=== PATIENT | female | born 1945 | race Caucasian/White ===

== ENCOUNTER → 2016-11-22 | Outpatient (CLI) | payer MEDICARE ==
--- NOTE | 2016-11-22 08:34 | US ---
EXAMINATION TYPE: US abdomen complete DATE OF EXAM: 11/22/2016 8:14 AM COMPARISON: 06/19/2011 CLINICAL HISTORY: R10.9 Abd Pain. EXAM MEASUREMENTS: Liver Length: 13.24 cm Gallbladder Wall: .28 cm CBD: 0.51 cm Spleen: 10 cm Right Kidney: 12 cm Left Kidney: 13.9 cm TECHNOLOGIST IMPRESSION: wnl Pancreas: tail obscured by bowel gas Liver: Increased attenuation Gallbladder: wnl Evidence for sonographic Dennis's sign: no CBD: wnl Spleen: wnl Right Kidney: heterogeneous, two tubular anechoic midline areas 1.) 1.9 x 2.2 x 1.6, 2.) 2.4 x 1.4 x 1.5cm Left Kidney: Midline tubular cystic structure measuring 1.)3.0 x 3.4 x 4.4 cm, lateral cyst measurin g 5.5 x 6.5 x 5.0 cm Upper IVC: wnl Abd Aorta: portions visualized wnl, partially obscured by bowel gas The liver is heterogenous. The intrahepatic portion of the IVC and proximal abdominal aorta are with in normal limits. There is no evidence of cholelithiasis. Common bile duct is unremarkable. The vi sualized portions of the pancreas are homogenous. The spleen is unremarkable. Kidneys are symmetric and free of hydronephrosis. Bilateral renal cysts are noted. IMPRESSION: 1. Fatty liver 2. Bilateral renal cysts
== END | disposition home or self-care (01) ==
LOC: RADUSWWP 07:24
PROVIDERS: ATTEND Family Medicine
DX: N28.1 Cyst of kidney, acquired (principal); K76.0 Fatty (change of) liver, not elsewhere classified
CPT/HCPCS: 76700

== ENCOUNTER → 2017-05-12 | Outpatient (CLI) | payer MEDICARE ==
[2017-05-12 09:01] LABS: Blood Urea Nitrogen 16 mg/dL (7-17); Non-African American GFR(MDRD) >60 (>60 ml/min/1.73 sqM)
== END | disposition home or self-care (01) ==
LOC: LABWHC1 08:01
DX: D32.0 Benign neoplasm of cerebral meninges (principal)
CPT/HCPCS: 36415; 82565; 84520

== ENCOUNTER → 2017-06-07 | Outpatient (CLI) | payer MEDICARE ==
--- NOTE | 2017-06-07 10:19 | MR ---
EXAMINATION TYPE: MR brain wo/w con DATE OF EXAM: 06/07/2017 10:06 AM COMPARISON: Previous study dated 05/27/2016. HISTORY: F/U on existing brain meningioma TECHNIQUE: Multiplanar, multiecho imaging of the brain was obtained with and without intravenous adm inistration of 17 mL intravenous MultiHance. FINDINGS: Structures are unremarkable. There is a normal craniocervical junction. There is minimal restricted diffusion within the patient's known meningioma. No other restricted diff usion is identified. There are normal vascular flow voids. The orbits are normal. There is no evidence of a CP angle mass lesion. The patient's known meningioma in the right cerebral convexity previously measured 3.1 x 2.6 x 2.2 cm . Today this measures 2.9 x 2.7 x 2.1 cm. These measurements are within the errors of measurement. There is both punctate and confluent periventricular white matter disease. This may have worsened sli ghtly from the previous study. There is no midline shift or intracranial blood. IMPRESSION: 1. NO ACUTE INTRACRANIAL ABNORMALITY. 2. STABLE RIGHT POSTERIOR PARIETAL CONVEXITY MENINGIOMA. 3. SLIGHT INCREASE IN THE NUMBER OF CONFLUENT AND PUNCTATE PERIVENTRICULAR WHITE MATTER CHANGES, LIKE LY ON THE BASIS OF SMALL VESSEL DISEASE.
== END | disposition home or self-care (01) ==
LOC: RADMRIMAIN 09:30
DX: D32.0 Benign neoplasm of cerebral meninges (principal); R90.82 White matter disease, unspecified
CPT/HCPCS: 70553; A9577

== ENCOUNTER → 2018-01-06 | Outpatient (CLI) | payer SELFPAY ==
--- NOTE | 2018-01-06 11:09 | MM ---
Reason for exam: additional evaluation requested from prior study. Last mammogram was performed 1 year and 7 months ago. History: Patient is postmenopausal and has history of other cancer at age 66. Family history of breast cancer in sister at age 63. Benign stereotactic core biopsy of the right breast, August 18, 2003. Core biopsy of the right breast. 3 excisional biopsies of the left breast. Physical Findings: Nurse did not find any significant physical abnormalities on exam. MG 3D Diag Mammo W/Cad HUMPHREY Bilateral CC and MLO view(s) were taken. Prior study comparison: May 31, 2016, bilateral MG screening mammo w CAD. May 22, 2015, bilateral MG diagnostic mammo w CAD HUMPHREY. There are scattered fibroglandular densities. Previous mammotome biopsy in the right breast. 7mm circumscribed mass upper outer quadrant right breast increased in size from 2015 and new from 2014. Small group of microcalcifications 10 o'clock left breast unchanged. These results were verbally communicated with the patient and result sheet given to the patient on 01/06/18. ASSESSMENT: Incomplete: need additional imaging evaluation, BI-RAD 0 RECOMMENDATION: Ultrasound of the right breast. (upper outer quadrant)
--- NOTE | 2018-01-06 11:10 | USB ---
Reason for exam: additional evaluation requested from abnormal screening. History: Patient is postmenopausal and has history of other cancer at age 66. Family history of breast cancer in sister at age 63. Benign stereotactic core biopsy of the right breast, August 18, 2003. Core biopsy of the right breast. 3 excisional biopsies of the left breast. US Breast Limited RT Right breast ultrasound demonstrates a 0.5 x 0.5 x 0.3cm oval, cystic, benign lesion at 10 o'clock, corresponds well to the mammographic finding. Scanned 9-12 o'clock. These results were verbally communicated with the patient and result sheet given to the patient on 01/06/18. ASSESSMENT: Benign, BI-RAD 2 RECOMMENDATION: Follow-up diagnostic mammogram of both breasts in 1 year.
== END | disposition home or self-care (01) ==
LOC: RADMAMWWP 09:12
PROVIDERS: ATTEND Family Medicine
DX: R92.8 Other abnormal and inconclusive findings on diagnostic imaging of breast (principal)
CPT/HCPCS: 77066; 76642; G0279

== ENCOUNTER → 2018-07-13 | Outpatient (CLI) | payer BC, MEDICARE ==
--- NOTE | 2018-07-13 13:06 | MR ---
EXAMINATION TYPE: MR brain wo/w con DATE OF EXAM: 07/13/2018 COMPARISON: Prior brain MR 06/07/2017 HISTORY: Benign neoplasm of cerebral meninges TECHNIQUE: Multiplanar, multisequence images of the brain and brainstem is performed without and with IV contras t, utilizing 8.5 mL intravenous Gadavist . FINDINGS: Diffusion weighted images demonstrate no evidence of a recent infarct or other diffusion ab normality. The extra-axial mass described on previous report is again noted and measures approximatel y 3.2 cm x 3.1 cm x 2.3 cm and shows intense enhancement following contrast menstruation at the level of the right parietal convexity and is similar to prior exam. Scattered and confluent hyperintensiti es on inversion recovery and T2-weighted sequences are present throughout the white matter as on prio r exam. No hemorrhage or hydrocephalus. Midline structures demonstrate normal morphology. The craniocervical junction appears within normal limits. Post contrast images demonstrate the right parietal mass to enhance as on prior the dural ve nous sinuses appear patent. The visualized sinuses are clear and the globes are intact. IMPRESSION: Stable meningioma, white matter demyelination.
== END | disposition home or self-care (01) ==
LOC: RADMRIMAIN 11:44
DX: D32.0 Benign neoplasm of cerebral meninges (principal); G37.8 Other specified demyelinating diseases of central nervous system
CPT/HCPCS: 70553

== ENCOUNTER → 2019-08-04 | Outpatient (CLI) | payer BC, MEDICARE ==
--- NOTE | 2019-08-04 10:11 | MM ---
Reason for exam: additional evaluation requested from prior study. Last mammogram was performed 1 year and 7 months ago. History: Patient is postmenopausal and has history of other cancer at age 66. Family history of breast cancer in sister at age 63. Benign stereotactic core biopsy of the right breast, August 18, 2003. Core biopsy of the right breast. 3 excisional biopsies of the left breast. Took estrogen for 6 months beginning at age 51. Took progesterone for 6 months beginning at age 51. Physical Findings: Nurse Summary: 0.5cm nodule in the left breast at 12 o'clock (nurse dw). MG 3D Diag Mammo W/Cad HUMPHREY Bilateral CC and MLO view(s) were taken. Prior study comparison: January 06, 2018, bilateral MG 3d diag mammo w/cad HUMPHREY. May 31, 2016, bilateral MG screening mammo w CAD. The breast tissue is heterogeneously dense. This may lower the sensitivity of mammography. Stable benign calcifications. There is chronic nodularity bilaterally. Ultrasound of left palpable. These results were verbally communicated with the patient and result sheet given to the patient on 08/04/19. ASSESSMENT: Incomplete: need additional imaging evaluation, BI-RAD 0 RECOMMENDATION: Ultrasound of the left breast.
--- NOTE | 2019-08-04 10:14 | USB ---
Reason for exam: additional evaluation requested from abnormal screening. History: Patient is postmenopausal and has history of other cancer at age 66. Family history of breast cancer in sister at age 63. Benign stereotactic core biopsy of the right breast, August 18, 2003. Core biopsy of the right breast. 3 excisional biopsies of the left breast. Took estrogen for 6 months beginning at age 51. Took progesterone for 6 months beginning at age 51. US Breast Limited LT Left limited breast ultrasound including focal area of concern, retroareolar and axilla demonstrates a 3 x 2 x 3mm cystic cluster at 1 o'clock, a 2 x 2 x 2mm oval, cystic lesion at 2 o'clock, a 4 x 2 x 3mm solid, hypoechoic lesion at 2 o'clock, taller than wide, biopsy recommended and a 4 x 3 x 5mm lobular, cystic lesion at the posterior nipple BB. These results were verbally communicated with the patient and result sheet given to the patient on 08/04/19. ASSESSMENT: Suspicious, BI-RAD 4 RECOMMENDATION: Ultrasound core biopsy of the left breast. (2 o'clock) Called Dr. Sharma with mammographic findings and has scheduled an appointment for the patient for 08/18/19 at 1:[address] Abdalla. Biopsy scheduled for 08/23/19 at 2:20. PRELIMINARY REPORT CALLED AND FAXED TO DR. ABDALLA ON 08/04/19.
== END | disposition home or self-care (01) ==
LOC: RADMAMWWP 08:12
PROVIDERS: ATTEND Family Medicine
DX: N60.11 Diffuse cystic mastopathy of right breast (principal); N60.12 Diffuse cystic mastopathy of left breast; N63.20 Unspecified lump in the left breast, unspecified quadrant; R92.8 Other abnormal and inconclusive findings on diagnostic imaging of breast
CPT/HCPCS: 77062; 77066

== ENCOUNTER → 2019-08-04 | Outpatient (CLI) | payer BC, MEDICARE ==
--- NOTE | 2019-08-04 11:46 | MR ---
EXAMINATION TYPE: MR brain wo/w con DATE OF EXAM: 08/04/2019 COMPARISON: 07/13/2018 HISTORY: Benign neoplasm of cerebral meninges TECHNIQUE: Multiplanar, multisequence images of the brain and brainstem is performed without and with IV contras t, utilizing 8 mL intravenous Gadavist . FINDINGS: Diffusion weighted images demonstrate no evidence of a recent infarct or other diffusion ab normality. The extra-axial mass described on previous report is again noted and measures approximately 3.2 cm x 3.1 cm x 2.3 cm and shows intense enhancement at the level of the right parietal convexity and is sim ilar to prior exam. There is mass effect upon the adjacent right parietal cortex. No midline shift. There are numerous scattered and confluent hyperintensities on inversion recovery and T2-weighted se quences are present throughout the white matter as on prior exam. No enhancing lesions. Midline structures demonstrate normal morphology. The craniocervical junction appears within normal limits. The dural venous sinuses appear patent. IMPRESSION: 1. Stable right parasagittal meningioma. Stable amount of mass effect upon the underlying right parie chrissy cortex and a mild compression of the right margin of the sagittal sinus. 2. Nonspecific stable white matter findings may been the basis of remote microvascular ischemia or de myelination. Correlate clinically
== END | disposition home or self-care (01) ==
LOC: RADMRIMAIN 10:04
DX: D32.0 Benign neoplasm of cerebral meninges (principal); R90.89 Other abnormal findings on diagnostic imaging of central nervous system
CPT/HCPCS: 70553; A9585

== ENCOUNTER → 2019-08-18 | Outpatient (CLI) | payer BC, MEDICARE ==
[2019-08-18 13:38] VITALS: BP 148/85; PULSE 66; RESP 18; TEMP 98; BMI 29.0
--- NOTE | 2019-08-18 14:07 | P.GSHP ---
History of Present Illness H&P Date: 08/18/19 Chief Complaint: abnormal ultrasound left breast Ani is a 73-year-old white female a diagnostic mammogram performed on . At that time there was chronic nodularity noted in stable benign calcifications. The risks however had palpated in the area of concern in the 12 o'clock position of the left breast. The patient therefore underwent a left breast ultrasound. This revealed a 4 x 3 cm solid hypoechoic lesion at 2:00 tolerated and wide. Biopsy was recommended. The patient herself states she did not feel anything of concern in her breasts. However she has had multiple bilateral breast biopsies. She has had 3 open left breast biopsies and 2 stereotactic right breast biopsies. All have been benign. The patient has breast pain on occasion related to caffeine intake. She drinks only one cup of coffee per day. She does not smoke, is not exposed to seco ndhand smoke. She eats chocolate minimally. Family History: sister: breast cancer at 71 Hormonal History: menarche: 14 , 2 stillborn, breast fed: none, age at first : 31 menopause: 51 BCP: 1 year hormones: none Past Surgical History: 1. thyroid 2. tonsil 3. breast biopsy 4. shoulder arthoscopic surgery 5. knee arthroscopic Medical History: 1. fibromyalgia 2. arthtritis 3. back pain 4. Meningioma which is stable/following this for 5 years, follows every 1 year Social History: smoke: none alcohol: occasional drugs: none - Constitutional Constitutional: Denies chills, Denies fever - EENT Comment: glaucoma, cataract Eyes: denies blurred vision, denies pain Ears: bilateral: tinnitus, deny: decreased hearing Ears, nose, mouth and throat: Reports headache, Reports hoarseness - Breasts Breasts: bilateral: as per HPI - Cardiovascular Cardiovascular: Reports chest pain - Respiratory Comment: seasonal asthma - Gastrointestinal Comment: reflux IBS Gastrointestinal: Reports diarrhea - Genitourinary (Female) Genitourinary: Denies dysuria, Denies hematuria - Menstruation Menstruation: Reports postmenopausal - Musculoskeletal Comment: fibromyalgia hip pain back pain Musculoskeletal: Reports myalgias - Integumentary Comment: psoriasis Integumentary: Denies pruritus, Denies rash - Neurological Comment: meniagoma Neurological: Reports weakness - Psychiatric Psychiatric: Denies anxiety, Denies depression - Endocrine Comment: thyroid cancer Endocrine: Reports fatigue - Hematologic/Lymphatic Comment: none - Allergic/Immunologic Allergic/Immunologic: Reports seasonal allergies Past Medical History Past Medical History: GERD/Reflux, Hyperlipidemia, Hypertension, Thyroid Disorder History of Any Multi-Drug Resistant Organisms: None Reported Past Surgical History: Breast Surgery Additional Past Surgical History / Comment(s): thyroidectomy, breast biopsy Past Psychological History: No Psychological Hx Reported Smoking Status: Never smoker Past Alcohol Use History: Occasional Past Drug Use History: None Reported Medications and Allergies Home Medications Medication Instructions Recorded Confirmed Type Latanoprost Ophth [Xalatan 0.005%] 1 drops BOTH EYES HS 11/22/15 08/18/19 History Levothyroxine Sodium [Synthroid] 125 mcg PO DAILY 11/22/15 08/18/19 History Omeprazole [PriLOSEC] 10 mg PO AC-BRKFST 11/22/15 08/18/19 History amLODIPine [Norvasc] 5 mg PO DAILY 11/22/15 08/18/19 History Rosuvastatin [Crestor] 4 mg PO DAILY 08/05/19 08/18/19 History Cefuroxime Axetil [Ceftin] 500 mg PO BID 08/18/19 08/18/19 History Allergies Allergy/AdvReac Type Severity Reaction Status Date / Time No Known Allergies Allergy Verified 08/18/19 13:24 Surgical - Exam Vital Signs Temp Pulse Resp BP Pulse Ox 98.0 F 66 18 148/85 97 08/18/19 13:27 08/18/19 13:27 08/18/19 13:27 08/18/19 13:27 08/18/19 13:27 BMI 29 - General well developed, well nourished, no distress - Eyes normal ocular movement - ENT no hearing loss, no congestion - Neck no masses, trachea midline - Respiratory normal expansion, normal respiratory effort, clear to auscultation - Cardiovascular Rhythm: regular Heart Sounds: normal: S1, S2 - Abdomen Abdomen: soft, non tender, no guarding, no rigid, no rebound - Integumentary normal turgor - Neurologic no disoriented, no combative - Musculoskeletal normal gait, normal posture - Psychiatric oriented to time, oriented to person, oriented to place, speech is normal, memory intact breast exam: Right breast: Multi-positional exam no dominant masses or nodules of concern, fibrocystic changes Right axilla: No adenopathy of concern Left breast: Well-healed scars from prior biopsy, fibrocystic changes, step-off deformity near the area of biopsy Left axilla: No adenopathy of concern Results Mammogram and ultrasound results reviewed Assessment and Plan Assessment: Impression: 1. Mammogram abnormality line 2. Ultrasound abnormality 4 x 2 mm solid tolerated and wide lesion at 2:00 3. Palpable lesion at 12:00 noted by a nurse not noted by patient or myself 4. Stable meningioma 5. Fibromyalgia 6. Past history of thyroid cancer 7. Family history of breast cancer/sister 8. Fibrocystic breast changes 9. Breast pain related to caffeine intake Plan: 1. Ultrasound-guided core biopsy of left breast lesion 2. Abstain from caffeinated beverages/patient does not smoke, and eats chocolate only occasionally 3. Medical management of medical conditions CC: Dr. Sharma Risk and benefits of ultrasound core biopsy discussed with the patient and her . They understand and wish to proceed.
== END | disposition home or self-care (01) ==
LOC: WWCWWP 13:09
PROVIDERS: ATTEND Surgery
DX: Z53.9 Procedure and treatment not carried out, unspecified reason (principal)

== ENCOUNTER → 2019-08-23 | Day surgery (SDC) | payer BC, MEDICARE ==
[2019-08-23 13:46] VITALS: RESP 16; BMI 29.8
[2019-08-23 15:36] VITALS: BP 147/80; PULSE 80; TEMP 98.1
--- NOTE | 2019-08-23 17:29 | USB ---
EXAMINATION TYPE: US biopsy breast VAD LT, Post procedure diagnostic mammo LT wo CAD DATE OF EXAM: 08/23/2019 CLINICAL HISTORY: 73-year-old female R92.8 Abnormal Mammogram. TECHNIQUE: Ultrasound guided core biopsy of the left breast. COMPARISON: 08/04/2019 FINDINGS: The procedure of ultrasound guided core biopsy was explained to the patient. Benefits, alternatives, and risks were discussed. An informed consent was then obtained. The patient was placed in supine positioning for imaging and for the procedure. The overlying skin was prepped and draped in usual sterile fashion. Lidocaine buffered with bicarbonate was used as anesthetic into the skin and subcutaneous tissue up to area of concern in the 2:00 left breast. Under ultrasound guidance, a 13-gauge vacuum-assisted mammotome Elite biopsy gun device was used to obtain 3 core samples. Following this, a coil clip was left in lesion. The patient tolerated the procedure well without any immediate complication. The patient was kept in the radiology department for short stay after the procedure and then discharged home in stable condition. Postprocedure mammogram shows coil clip at the 2:00 position at a middle depth. IMPRESSION: Successful, uncomplicated ultrasound guided core biopsy of the tiny, 3 mm, vertically oriented area of concern in the 2:00 left breast, full pathology results to follow. Pathology Results: High Risk LEFT BREAST, ULTRASOUND GUIDED CORE BIOPSY: Intraductal papilloma. Recommendation Surgical consult of the left breast. (needle localization) RAYSHAWND
== END | disposition home or self-care (01) ==
LOC: RADUSWWP 13:16
PROVIDERS: ATTEND Surgery
DX: D24.2 Benign neoplasm of left breast (principal)
CPT/HCPCS: 88305; 77065; 19083; A4648; J2001

== ENCOUNTER → 2019-09-03 | Outpatient (CLI) | payer BC, MEDICARE ==
[2019-09-03 08:26] VITALS: BP 162/79; PULSE 71; RESP 18; TEMP 97.9; BMI 29.0
--- NOTE | 2019-09-03 08:56 | P.PN ---
Subjective Progress Note Date: 09/03/19 Principal diagnosis: post-op core biopsy/intraductal papilloma Ani is a 73-year-old white female who was initially seen on [id number]. At that time there was chronic nodularity noted in the breast. The patient had had an ultrasound which revealed a 4 x 3 cm solid hypoechoic lesion at 2:00 tolerated and wide and biopsy was recommended. The patient subsequently underwent a ultrasound-guided core biopsy on [id number]. Pathology revealed an intraductal papilloma. The patient since the procedure does not complain of anything in her breasts. She had some mild bruising. The patient has had multiple breast biopsies in the past including 3 open left breast biopsies and 2 stereotactic right breast biopsies. All have been benign. The patient relates a history of urinary tract infection, she was treated with antibiotics approximately 2 months ago. She has recently been having pelvic pressure and discomfort. We will repeat a UA. The reason is that we do not want to do the excisional biopsy if she has an active infection. The patient also has a history of a meningioma which has been stable but we will review this with neurosurgeon to assure that she would be a stable candidate for general anesthesia and surgical intervention. History: sister: Breast cancer 71 Medical history: 1. Fibromyalgia 2. Arthritis 2. Back pain 4. Meningioma which is been stable 5. Pelvic pain/urinary tract infection and recent past 6. Intraductal papilloma left breast 7. Multiple prior breast biopsies Objective - Vital Signs Vital signs: Vital Signs Temp 97.9 F 09/03/19 08:22 Pulse 71 09/03/19 08:22 Resp 18 09/03/19 08:22 BP 162/79 09/03/19 08:22 Pulse Ox 94 L 09/03/19 08:22 Intake & Output 09/02/19 09/03/19 09/03/19 18:59 06:59 18:59 Weight 83.915 kg - Exam BMI 29 - Constitutional General appearance: Present: average body habitus - EENT Eyes: Present: EOMI ENT: Present: hearing grossly normal - Neck Neck: Present: normal ROM - Respiratory Respiratory: bilateral: CTA - Cardiovascular Rhythm: regular Heart sounds: normal: S1, S2 - Integumentary Integumentary Comment(s): Left breast: Core biopsy site: No evidence of infection No hematoma Mild ecchymosis at biopsy site Well-healed scar from prior open biopsy Integumentary: Present: normal turgor - Musculoskeletal Musculoskeletal: Present: gait normal - Psychiatric Psychiatric: Present: A&O x's 3, appropriate affect, intact judgment & insight Assessment and Plan Assessment: Impression: 1. Ultrasound abnormality 4 x 2 mm solid tolerated then wide at 2:00, core biopsy intraductal papilloma 2. Fibrocystic breast changes 3. Prior recent urinary tract infection with symptoms of pelvic discomfort at this time 4. Fibromyalgia 5. Stable meningioma 6. Family history of breast cancer in sister 7. Breast pain felt to be related to caffeine Plan: 1. Needle localization excisional biopsy of intraductal papilloma/ultrasound abnormality 2. Repeat UA to assure that she does not have active infection 3. Medical clearance from neurosurgeon related to meningioma and any risks at time of induction of anesthesia 4. medical clearance from medical doctor Risks and benefits of the procedure were discussed with the patient and her . These include but are not limited to bleeding, infection, reaction to the anesthetic. This also included the possibility that the lesion could not be removed and we would have to repeat the procedure and started 4-6 months. Additionally we have discussed risks of doing procedure with an active infection and therefore obtained and a UA. We have also discussed the possible risks of induction of anesthesia with a intracranial lesion/meningioma and clearance will be obtained from both her medical doctor and neurosurgeon. The patient at this time is not taking any blood thinners. Cc: Dr. Sharma
[2019-09-03 15:48] LABS: Appearance,Urine Clear (Clear); Bacteria,Urine Rare /hpf; Bilirubin,Urine Negative (Negative); Blood,Urine Negative (Negative); Color,Urine Yellow; Glucose,Urine (UA) Negative (Negative); Hyaline Casts,Urine 1 /lpf (0-2); Ketones,Urine Negative (Negative); Leukocyte Esterase,Urine Moderate (Negative); Mucus,Urine Few /hpf; Nitrite,Urine Negative (Negative); Protein,Urine Trace (Negative); RBC,Urine 1 /hpf (0-5); Specific Gravity,Urine 1.025 (1.001-1.035); Squamous Epithelial Cell,Urine 5 /hpf (0-4); Urobilinogen,Urine <2.0 mg/dL (<2.0); WBC,Urine 6 /hpf (0-5)
--- NOTE | 2019-10-08 16:51 | P.PN ---
Subjective Progress Note Date: 10/08/19 Principal diagnosis: post-op core biopsy/intraductal papilloma post-op core biopsy/intraductal papilloma Ani is a 73-year-old white female who was initially seen on [id number]. At that time there was chronic nodularity noted in the breast. The patient had had an ultrasound which revealed a 4 x 3 cm solid hypoechoic lesion at 2:00 taller than wide and biopsy was recommended. The patient subsequently underwent a ultrasound-guided core biopsy on [id number]. Pathology revealed an intraductal papilloma. The patient since the procedure does not complain of anything in her breasts. She had some mild bruising. The patient has had multiple breast biopsies in the past including 3 open left breast biopsies and 2 stereotactic right breast biopsies. All have been benign. The patient relates a history of urinary tract infection, she was treated with antibiotics approximately 2 months ago. She has recently been having pelvic pressure and discomfort. We will repeat a UA. The reason is that we do not want to do the excisional biopsy if she has an active infection. The patient also has a history of a meningioma which has been stable but we will review this with neurosurgeon to assure that she would be a stable candidate for general anesthesia and surgical intervention. History: sister: Breast cancer 71 Medical history: 1. Fibromyalgia 2. Arthritis 2. Back pain 4. Meningioma which is been stable 5. Pelvic pain/urinary tract infection and recent past 6. Intraductal papilloma left breast 7. Multiple prior breast biopsies Objective - Vital Signs Vital signs: Vital Signs Temp 97.9 F 09/03/19 08:22 Pulse 71 09/03/19 08:22 Resp 18 09/03/19 08:22 BP 162/79 09/03/19 08:22 Pulse Ox 94 L 09/03/19 08:22 - Exam BMI 29 - Constitutional General appearance: Present: average body habitus - EENT Eyes: Present: EOMI ENT: Present: hearing grossly normal - Neck Neck: Present: normal ROM - Respiratory Respiratory: bilateral: CTA - Cardiovascular Rhythm: regular Heart sounds: normal: S1, S2 - Gastrointestinal General gastrointestinal: Present: soft - Integumentary Integumentary: Present: normal turgor - Musculoskeletal Musculoskeletal: Present: gait normal - Psychiatric Psychiatric: Present: A&O x's 3, appropriate affect, intact judgment & insight - Additional findings Additional findings: Breast examination: Right breast: Multiple positional exam no dominant masses or nodules of concern, fibrocystic changes Right axilla: No adenopathy of concern left breast: Well-healed scars from prior biopsy, fibrocystic changes, step-off deformity near area of the prior biopsy, no evidence of infection or hematoma at the biopsy site Left axilla: No adenopathy of concern Assessment and Plan Assessment: Impression: 1. Ultrasound abnormality 4 x 2 mm solid tolerated then wide at 2:00, core biopsy intraductal papilloma 2. Fibrocystic breast changes 3. Prior recent urinary tract infection with symptoms of pelvic discomfort at this time 4. Fibromyalgia 5. Stable meningioma 6. Family history of breast cancer in sister 7. Breast pain felt to be related to caffeine Plan: 1. Needle localization excisional biopsy of intraductal papilloma/ultrasound abnormality; possible tissue transfer 2. Repeat UA to assure that she does not have active infection 3. Medical clearance from neurosurgeon related to meningioma and any risks at time of induction of anesthesia 4. medical clearance from medical doctor Risks and benefits of the procedure were discussed with the patient and her . These include but are not limited to bleeding, infection, reaction to the anesthetic. This also included the possibility that the lesion could not be removed and we would have to repeat the procedure and started 4-6 months. Additionally we have discussed risks of doing procedure with an active infection and therefore obtained and a UA. We have also discussed the possible risks of induction of anesthesia with a intracranial lesion/meningioma and clearance will be obtained from both her medical doctor and neurosurgeon. The patient at this time is not taking any blood thinners. UA performed on revealed trace urine protein, moderate leukocyte esterase positive, and rare bacteria. Patient was cleared from neurosurgical standpoint by Dr. Roland Newton. Patient was cleared from cardiology standpoint for surgery. Cc: Dr. Sharma
== END | disposition home or self-care (01) ==
LOC: WWCWWP 08:03
PROVIDERS: ATTEND Surgery
DX: N39.0 Urinary tract infection, site not specified (principal); Z87.448 Personal history of other diseases of urinary system
CPT/HCPCS: 81001

== ENCOUNTER 2019-10-12 10:47 | Day surgery (SDC) | payer BC, MEDICARE ==
[2019-10-11 09:45] VITALS: BMI 29.0
[~2019-10-12 10:47] MED LIST: ALPRAZolam 0.25 MG TAB PO PRN; DEXAMETHASONE SOD PHOSPHATE 10 MG/ML 1 ML VIAL IV ONE; HEPARIN SODIUM,PORCINE 5,000 UNIT/ML 1 ML VIAL SQ ONE; HYDROmorphone 0.5 MG/0.5 ML SYRINGE IVP PRN; LACTATED RINGERS 1,000 ML IV SCH; LIDOCAINE 1% 20 ML VIAL (10MG/ML) FOR IV START INTRADERMA PRN; ONDANSETRON 4 MG/2 ML VIAL IVP ONE; Pre Op ABX Message 1 EACH MISC MISCELLANE ONE
[2019-10-12 11:09] VITALS: RESP 16
[2019-10-12] MEDS ORDERED: ALPRAZolam 0.25 MG TAB PO ONE (11:20)
[2019-10-12 12:00] LABS: Appearance,Urine Clear (Clear); Bilirubin,Urine Negative (Negative); Blood,Urine Negative (Negative); Color,Urine Yellow; Glucose,Urine (UA) Negative (Negative); Ketones,Urine Negative (Negative); Leukocyte Esterase,Urine Trace (Negative); Mucus,Urine Many /hpf; Nitrite,Urine Negative (Negative); PH, Urine 5.5 (5.0-8.0); Protein,Urine Trace (Negative); RBC,Urine 2 /hpf (0-5); Specific Gravity,Urine 1.019 (1.001-1.035); Squamous Epithelial Cell,Urine 1 /hpf (0-4); Urobilinogen,Urine <2.0 mg/dL (<2.0); WBC,Urine 1 /hpf (0-5)
[2019-10-12] MEDS ORDERED: LIDOCAINE 1% (PF) 10 MG/ML (30 ML SDV) SQ ONE (12:05)
[2019-10-12] MEDS ORDERED: LIDOCAINE 1% INJ 10MG/ML (20 ML MDV) ONE (14:55)
[2019-10-12] MEDS ORDERED: PROPOFOL 10 MG/ML 20 ML VIAL IV ONE (14:55)
[2019-10-12] MEDS ORDERED: MIDAZOLAM 2 MG/2 ML VIAL ONE (14:55)
[2019-10-12] MEDS ORDERED: SUCCINYLCHOLINE CHLORIDE 100 MG/5 ML SYR IV ONE (14:55)
[2019-10-12] MEDS ORDERED: fentaNYL (PF) 50 MCG/ML 2 ML AMP ONE (14:55)
[2019-10-12] MEDS ORDERED: HYDROmorphone (PF) 1 MG/ML ONE (14:55)
[2019-10-12] MEDS ORDERED: ePHEDrine SULFATE/0.9% NACL/PF 50 MG/5 ML SYRINGE IV ONE (14:55)
[2019-10-12] MEDS ORDERED: LACTATED RINGERS 1,000 ML IV ONE (15:38)
--- NOTE | 2019-10-12 16:01 | P.OP ---
Date of Procedure: 10/12/19 Preoperative Diagnosis: Left breast needle localization for biopsy which showed an intraductal papilloma Postoperative Diagnosis: Same Procedure(s) Performed: Needle local excisional biopsy left breast Anesthesia: RONNELL Surgeon: April Abdalla IV fluids (ml): 800 Pathology: other (breat tissue) Condition: stable Disposition: same day Indications for Procedure: Biopsy left breast positive for intraductal papilloma, in addition lesion was tolerated and wide and felt to be somewhat discordant biopsy Operative Findings: Fibrofatty breast tissue Description of Procedure: Following needle localization of an area of concern in the left breast patient was taken to the operating room. Following induction of general anesthesia the left breast was prepped and draped in a sterile fashion. An incision was made and carried down to the hook of the needle. Surrounding tissue was excised. After assured that hemostasis was attained the wound was well irrigated. The deep tissues were closed using 3-0 Vicryl suture. Titanium clips were placed prior to this to danis the area of the biopsy. The skin was closed using 4-0 Monocryl. The specimen was painted for orientation and x-ray was obtained. X- ray confirmed the area of concern had been removed. Patient tolerated procedure in stable condition. All instrument and sponge counts were correct at the end of the case.
--- NOTE | 2019-10-12 16:03 | P.DS ---
Providers Attending physician: April Abdalla Primary care physician: Romel Sharma Plan - Discharge Summary Discharge Rx Participant: No New Discharge Prescriptions: No Action amLODIPine [Norvasc] 5 mg PO DAILY Omeprazole [PriLOSEC] 10 mg PO AC-BRKFST Latanoprost Ophth [Xalatan 0.005%] 1 drops BOTH EYES HS Rosuvastatin [Crestor] 10 mg PO DAILY ALPRAZolam [Xanax] 0.5 mg PO HS PRN PRN Reason: Anxiety Ibuprofen [Advil] 400 mg PO Q8HR PRN PRN Reason: Pain Acetaminophen [Tylenol Extra Strength] 500 mg PO DAILY PRN PRN Reason: Pain Levothyroxine Sodium [Synthroid] 112 mcg PO DAILY Discharge Medication List Latanoprost Ophth [Xalatan 0.005%] 1 drops BOTH EYES HS 11/22/15 [History] Omeprazole [PriLOSEC] 10 mg PO AC-BRKFST 11/22/15 [History] amLODIPine [Norvasc] 5 mg PO DAILY 11/22/15 [History] Rosuvastatin [Crestor] 10 mg PO DAILY 08/05/19 [History] ALPRAZolam [Xanax] 0.5 mg PO HS PRN 09/03/19 [History] Acetaminophen [Tylenol Extra Strength] 500 mg PO DAILY PRN 10/11/19 [History] Ibuprofen [Advil] 400 mg PO Q8HR PRN 10/11/19 [History] Levothyroxine Sodium [Synthroid] 112 mcg PO DAILY 10/11/19 [History] Follow up Appointment(s)/Referral(s): April Abdalla MD [STAFF PHYSICIAN] - 1 Week Activity/Diet/Wound Care/Special Instructions: do not drive today may shower after 48 hours Discharge Disposition: HOME SELF-CARE
[2019-10-12 16:30] VITALS: TEMP 97.2
[2019-10-12] MEDS ORDERED: HYDROmorphone 0.5 MG/0.5 ML SYRINGE IVP ONE (16:31)
[2019-10-12 17:44] VITALS: BP 130/63; PULSE 74
[2019-10-12 19:09] LABS: Appearance,Urine Clear (Clear); Bilirubin,Urine Negative (Negative); Blood,Urine Negative (Negative); Color,Urine Light Yellow; Glucose,Urine (UA) Negative (Negative); Ketones,Urine Trace (Negative); Leukocyte Esterase,Urine Negative (Negative); Nitrite,Urine Negative (Negative); PH, Urine 6.5 (5.0-8.0); Protein,Urine Trace (Negative); Specific Gravity,Urine 1.011 (1.001-1.035); Urobilinogen,Urine <2.0 mg/dL (<2.0)
--- NOTE | 2019-10-14 13:43 | MM ---
EXAMINATION TYPE: MG pre op needle loc LT DATE OF EXAM: 10/12/2019 COMPARISON: 08/23/2019 CLINICAL HISTORY: Abnormal left breast biopsy TECHNIQUE: Needle localization with wire placement and surgical excision of area of concern in the left breast. FINDINGS: The procedure of needle localization with wire placement and than surgical excision was explained to the patient. Benefits, alternatives, and risks were discussed. An informed consent was then obtained. The shortest pathway for procedure was chosen. Shortest pathway was lateral approach. The overlying skin was prepped and draped in usual sterile fashion. Lidocaine buffered with bicarbonate was used as anesthetic into the skin and subcutaneous tissue up to the level of area of concern. A 5 cm needle was used. It was placed via a lateral approach under mammographic guidance. Subsequent 90 degrees mammogram show the needle to be in satisfactory position relative to the targeted area. At this point, wire was placed and the needle was withdrawn. The wire was fixed to patient's skin. Images were marked for surgeon. The patient tolerated the procedure well without any immediate complication. The patient was kept in the radiology department for short stay after the procedure and then taken to surgery for surgical excision. Targeted biopsy clip and wire are identified in specimen mammogram. The patient was kept in hospital for short stay after the procedure and then discharged home in stable condition. IMPRESSION: Successful, uncomplicated needle localization with wire placement and surgical excision of biopsy clip in the left breast, full pathology results to follow. Pathology Results: High Risk LEFT BREAST MASS, NEEDLE LOCALIZATION BIOPSY: Intraductal papillomatosis and usual type duct hyperplasia in a background of fibrocystic spectrum disease changes. Focal stromal hyalinization consistent with reaction to prior surgical intervention. Intraductal mineralizations are present. Recommendation Follow up mammogram of the left breast in 6 months. MTDD
--- NOTE | 2019-10-18 08:19 | MM ---
MG Surgical Specimen LT EXAMINATION TYPE: MG pre op needle loc LT DATE OF EXAM: 10/12/2019 COMPARISON: 08/23/2019 CLINICAL HISTORY: Abnormal left breast biopsy TECHNIQUE: Needle localization with wire placement and surgical excision of area of concern in the left breast. FINDINGS: The procedure of needle localization with wire placement and than surgical excision was explained to the patient. Benefits, alternatives, and risks were discussed. An informed consent was then obtained. The shortest pathway for procedure was chosen. Shortest pathway was lateral approach. The overlying skin was prepped and draped in usual sterile fashion. Lidocaine buffered with bicarbonate was used as anesthetic into the skin and subcutaneous tissue up to the level of area of concern. A 5 cm needle was used. It was placed via a lateral approach under mammographic guidance. Subsequent 90 degrees mammogram show the needle to be in satisfactory position relative to the targeted area. At this point, wire was placed and the needle was withdrawn. The wire was fixed to patient's skin. Images were marked for surgeon. The patient tolerated the procedure well without any immediate complication. The patient was kept in the radiology department for short stay after the procedure and then taken to surgery for surgical excision. Targeted biopsy clip and wire are identified in specimen mammogram. The patient was kept in hospital for short stay after the procedure and then discharged home in stable condition. IMPRESSION: Successful, uncomplicated needle localization with wire placement and surgical excision of biopsy clip in the left breast, full pathology results to follow. RECOMMENDATION: Follow-up diagnostic mammogram of the left breast in 6 months.
== END 2019-10-12 18:24 | disposition home or self-care (01) ==
LOC: OR 10:47
PROVIDERS: ATTEND Surgery
DX: D24.2 Benign neoplasm of left breast (principal); N60.12 Diffuse cystic mastopathy of left breast; I10 Essential (primary) hypertension; M79.7 Fibromyalgia; M19.90 Unspecified osteoarthritis, unspecified site; E78.5 Hyperlipidemia, unspecified; E07.9 Disorder of thyroid, unspecified; K21.9 Gastro-esophageal reflux disease without esophagitis; Z79.890 Hormone replacement therapy; Z79.1 Long term (current) use of non-steroidal anti-inflammatories (NSAID); Z79.899 Other long term (current) drug therapy; Z98.890 Other specified postprocedural states; Z87.440 Personal history of urinary (tract) infections; Z86.011 Personal history of benign neoplasm of the brain; Z80.3 Family history of malignant neoplasm of breast
CPT/HCPCS: 81003; 81001; 88307; 87086; 76098; 19281; 19125; J2250; J1644; J1100; J2405; J2001 ×2; J3010; J1170 ×2; J0330; J2704

== ENCOUNTER → 2019-10-22 | Outpatient (CLI) | payer BC, MEDICARE ==
--- NOTE | 2019-10-22 15:47 | P.PN ---
Progress Note - Text Progress Note Date: 10/22/19 Ani is a 74-year-old white female status post left breast needle local excisional biopsy on [id number]. Pathology revealed intraductal papillomatosis. There was no cancer or precancer. The patient post procedure has done well. The only concern is that the tape was hard to get off. Lungs: Clear Heart: Regular rate and rhythm Incision: Clean and dry, at the lateral aspect of the incision the sutures starting to extrude and this was clipped Steri-Strips changed Tape is taken off using an alcohol wipe Impression: 1. Patient status post left breast open biopsy pathology benign intraductal papillomatosis 2. Patient doing well postoperative Plan: 1. Repeat left breast mammogram in 6 months with physician exam at that time 2. To call sooner if any questions of concern CC: Dr. Sharma
[2019-10-22 15:52] VITALS: BP 129/74; PULSE 78; RESP 18; TEMP 97.9
== END | disposition home or self-care (01) ==
LOC: WWCWWP 15:33
PROVIDERS: ATTEND Surgery
DX: Z53.9 Procedure and treatment not carried out, unspecified reason (principal)

== ENCOUNTER → 2020-05-16 | Outpatient (CLI) | payer BC, MEDICARE ==
--- NOTE | 2020-05-16 08:16 | MM ---
Reason for exam: follow-up at short interval from prior study. Last mammogram was performed 9 months ago. History: Patient is postmenopausal, has history of high-risk lesion on a previous biopsy at age 73, and has history of other cancer at age 66. Family history of breast cancer in sister at age 63. High risk MG pre op needle loc LT of the left breast, October 12, 2019. High risk US biopsy breast VAD LT of the left breast, August 23, 2019. Benign stereotactic core biopsy of the right breast, August 18, 2003. Core biopsy of the right breast. 3 excisional biopsies of the left breast. Took estrogen for 6 months beginning at age 51. Took progesterone for 6 months beginning at age 51. Physical Findings: Nurse did not find any significant physical abnormalities on exam. MG 3D Diag Mammo W/Cad LT CC and MLO view(s) were taken of the left breast. Prior study comparison: August 23, 2019, left breast MG diagnostic mammo LT wo CAD. August 04, 2019, bilateral MG 3d diag mammo w/cad [facility]. The breast tissue is heterogeneously dense. This may lower the sensitivity of mammography. Finding: There are typically benign, stable, fine calcifications in the left breast. Post surgical changes in the left breast. No significant changes in finding since August 23, 2019 and August 04, 2019. These results were verbally communicated with the patient and result sheet given to the patient on 05/16/20. ASSESSMENT: Benign, BI-RAD 2 RECOMMENDATION: Follow-up diagnostic mammogram of both breasts in 3 months. Back on schedule for August 2020.
== END | disposition home or self-care (01) ==
LOC: RADMAMWWP 07:24
PROVIDERS: ATTEND Surgery
DX: R92.8 Other abnormal and inconclusive findings on diagnostic imaging of breast (principal)
CPT/HCPCS: 77061; 77065

== ENCOUNTER → 2020-05-19 | Outpatient (CLI) | payer BC, MEDICARE ==
[2020-05-19 10:35] VITALS: BP 153/84; PULSE 64; RESP 18; TEMP 98.3
--- NOTE | 2020-05-19 10:50 | P.PN ---
Subjective Progress Note Date: 05/19/20 Principal diagnosis: Intraductal papillomas Ani is a 74-year-old white female a diagnostic mammogram performed on . At that time there was chronic nodularity noted and stable benign calcifications. However, an area of concern was palpated in the 12 o'clock position of the left breast. The patient therefore underwent a left breast ultrasound. This revealed a 4 x 3 cm solid hypoechoic lesion at 2:00 taller than wide. Biopsy was recommended. The patient herself states she did not feel anything of concern in her breasts. However she has had multiple bilateral breast biopsies. She has had 3 open left breast biopsies and 2 stereotactic right breast biopsies. All have been benign. She underwent a left breast ultrasound-guided core biopsy on [id number]. This revealed an intraductal papilloma. She subsequently underwent a needle local excisional biopsy on [id number]. This revealed intraductal papillomatosis. The patient has breast pain on occasion related to caffeine intake. She is not complaining of any new masses or lumps nodules in her breast. No recent history of any trauma or infection in the breast. The patient has no history of any nipple discharge or skin changes. Patient had a left breast mammogram performed on . This is benign BIRADS 2. She will have bilateral mammogram in August 2020. Caffeine: One cup per day Nicotine: Negative Theophylline: Occasional Hormones: Negative Family History: sister: breast cancer at 71 Hormonal History: menarche: 14 , 2 stillborn, breast fed: none, age at first : 31 menopause: 51 BCP: 1 year hormones: none Past Surgical History: 1. thyroid 2. tonsil 3. breast biopsy 4. shoulder arthoscopic surgery 5. knee arthroscopic 6. bilateral cataract surgery Medical History: 1. fibromyalgia 2. arthtritis pain in back and knees 3. back pain 4. Meningioma which is stable/following this for 5 years, follows every 1 year Social History: smoke: none alcohol: occasional drugs: none - Constitutional Constitutional: Denies chills, Denies fever - EENT Comment: glaucoma, cataract Eyes: denies blurred vision, denies pain Ears: bilateral: tinnitus, deny: decreased hearing Ears, nose, mouth and throat: Reports headache, Reports hoarseness - Breasts Breasts: bilateral: as per HPI - Cardiovascular Cardiovascular: Reports chest pain follows with cardiology, mitral valve prolapse - Respiratory Comment: seasonal asthma - Gastrointestinal Comment: reflux IBS Gastrointestinal: Reports diarrhea - Genitourinary (Female) Genitourinary: Denies dysuria, Denies hematuria - Menstruation Menstruation: Reports postmenopausal - Musculoskeletal Comment: fibromyalgia hip pain back pain Musculoskeletal: Reports myalgias - Integumentary Comment: psoriasis Integumentary: Denies pruritus, Denies rash - Neurological Comment: meniagoma Neurological: Reports weakness - Psychiatric Psychiatric: Denies anxiety, Denies depression - Endocrine Comment: thyroid cancer Endocrine: Reports fatigue - Hematologic/Lymphatic Comment: none - Allergic/Immunologic Allergic/Immunologic: Reports seasonal allergies Objective - Vital Signs Vital signs: Vital Signs Temp 98.3 F 05/19/20 10:32 Pulse 64 05/19/20 10:32 Resp 18 05/19/20 10:32 BP 153/84 05/19/20 10:32 Pulse Ox 95 05/19/20 10:32 Intake & Output 05/18/20 05/19/20 05/19/20 18:59 06:59 18:59 Weight 89.358 kg - Exam BMI 31.8 - Constitutional General appearance: Present: average body habitus - EENT Eyes: Present: EOMI ENT: Present: hearing grossly normal - Respiratory Respiratory: bilateral: CTA - Cardiovascular Rhythm: regular Heart sounds: normal: S1, S2 - Gastrointestinal General gastrointestinal: Present: normal bowel sounds, soft - Integumentary Integumentary: Present: normal turgor - Musculoskeletal Musculoskeletal: Present: gait normal - Psychiatric Psychiatric: Present: A&O x's 3, appropriate affect, intact judgment & insight - Additional findings Additional findings: breast: BRA: 38C inspection: left breast smaller than right breast, bilateral ptosis grade 2/3, well-healed scars left breast from prior surgery Operation: Right breast: Multi-positional exam no dominant masses or nodules of concern Right axilla: No adenopathy of concern Left breast: Multiple positional exam well-healed scars from prior surgery, no dominant masses or nodules of concern Left axilla: No adenopathy of concern Assessment and Plan Assessment: Impression: 1. Intraductal papillomatosis 2. Radiographic findings [place] breast [place] [id number] Bilateral fibrocystic breast changes Plan: 1. Ultrasound of the left breast if this is benign repeat bilateral mammogram in August 2020 with physician exam at that time The reason for an ultrasound of the left breast is that the lesion warranting biopsy most recently was noted on ultrasound not and mammogram. CC: DR. Sharma encounter 20 minutes, > 50% of time in planning and counselling
--- NOTE | 2020-05-19 12:07 | USB ---
Reason for exam: clinical finding. History: Patient is postmenopausal, has history of high-risk lesion on a previous biopsy at age 73, and has history of other cancer at age 66. Family history of breast cancer in sister at age 63. High risk MG pre op needle loc LT of the left breast, October 12, 2019. High risk US biopsy breast VAD LT of the left breast, August 23, 2019. Benign stereotactic core biopsy of the right breast, August 18, 2003. Core biopsy of the right breast. 3 excisional biopsies of the left breast. Took estrogen for 6 months beginning at age 51. Took progesterone for 6 months beginning at age 51. US Breast Limited LT Left limited breast ultrasound including focal area of concern, retroareolar and axilla demonstrates a 0.5 x 0.5 x 0.5cm oval, cystic lesion at 12 o'clock, a 0.3 x 0.4 x 0.3cm oval, cystic lesion at 1 o'clock, a 0.3 x 0.3 x 0.2cm oval, irregular lesion at 2 o'clock, questionable biopsy site with clip and a 1.3 x 0.9 x 0.6cm oval node at the axilla. These results were verbally communicated with the patient and result sheet given to the patient on 05/19/20. ASSESSMENT: Probably benign, BI-RAD 3 RECOMMENDATION: Follow-up diagnostic mammogram of both breasts in 3 months. Back on schedule for August 2020. Ultrasound of the left breast in 3 months.
== END | disposition home or self-care (01) ==
LOC: WWCWWP 09:53
PROVIDERS: ATTEND Surgery
DX: R92.8 Other abnormal and inconclusive findings on diagnostic imaging of breast (principal)

== ENCOUNTER → 2020-08-14 | Outpatient (CLI) | payer BC, MEDICARE ==
--- NOTE | 2020-08-14 14:28 | MM ---
Reason for exam: additional evaluation requested from prior study. Last mammogram was performed 3 months ago. History: Patient is postmenopausal, has history of high-risk lesion on a previous biopsy at age 73, and has history of other cancer at age 66. Family history of breast cancer in sister at age 63. High risk MG pre op needle loc LT of the left breast, October 12, 2019. High risk US biopsy breast VAD LT of the left breast, August 23, 2019. Benign stereotactic core biopsy of the right breast, August 18, 2003. Core biopsy of the right breast. 3 excisional biopsies of the left breast. Took estrogen for 6 months beginning at age 51. Took progesterone for 6 months beginning at age 51. Physical Findings: Nurse did not find any significant physical abnormalities on exam. MG 3D Diag Mammo W/Cad [facility] Bilateral CC and MLO view(s) were taken. XCCL view(s) were taken of the left breast. Prior study comparison: May 16, 2020, left breast MG 3d diag mammo w/cad LT. August 23, 2019, left breast MG diagnostic mammo LT wo CAD. There are scattered fibroglandular densities. Previous mammotome biopsy in the right breast. There is chronic nodularity in the left breast with associated calcifications central 10 o'clock left breast. Post excisional changes left breast. No significant new findings when compared with previous films. These results were verbally communicated with the patient and result sheet given to the patient on 08/14/20. ASSESSMENT: Incomplete: need additional imaging evaluation, BI-RAD 0 RECOMMENDATION: Ultrasound of the left breast. (as ordered)
--- NOTE | 2020-08-14 14:31 | USB ---
Reason for exam: additional evaluation requested from abnormal screening. History: Patient is postmenopausal, has history of high-risk lesion on a previous biopsy at age 73, and has history of other cancer at age 66. Family history of breast cancer in sister at age 63. High risk MG pre op needle loc LT of the left breast, October 12, 2019. High risk US biopsy breast VAD LT of the left breast, August 23, 2019. Benign stereotactic core biopsy of the right breast, August 18, 2003. Core biopsy of the right breast. 3 excisional biopsies of the left breast. Took estrogen for 6 months beginning at age 51. Took progesterone for 6 months beginning at age 51. US Breast Limited LT Left limited breast ultrasound including focal area of concern, retroareolar and axilla demonstrates a 3 x 3 x 3mm oval, cystic lesion at 12 o'clock, a 3 x 2 x 2mm oval, cystic lesion at 1 o'clock, a 5 x 6 x 6mm oval, cystic lesion at 2 o'clock at scar, thick walled, possible small developing seroma, 6 month follow up recommended and a 7mm lymph node at the axilla tail. Previous 2 o'clock area no longer seen. Scanned 12-3 o'clock. These results were verbally communicated with the patient and result sheet given to the patient on 08/14/20. ASSESSMENT: Probably benign, BI-RAD 3 RECOMMENDATION: Ultrasound of the left breast in 6 months. (attention 2 o'clock scar)
== END | disposition home or self-care (01) ==
LOC: RADMAMWWP 13:03
PROVIDERS: ATTEND Surgery
DX: R92.8 Other abnormal and inconclusive findings on diagnostic imaging of breast (principal)
CPT/HCPCS: 77062; 77066

== ENCOUNTER → 2020-08-18 | Outpatient (CLI) | payer BC, MEDICARE ==
[2020-08-18 15:14] VITALS: BP 148/82; PULSE 85; RESP 18; TEMP 98.7
--- NOTE | 2020-08-18 16:04 | P.PN ---
Subjective Progress Note Date: 08/18/20 Principal diagnosis: Intraductal papillomatosis/surveillance Ani is a 74-year-old white female a diagnostic mammogram performed on . At that time there was chronic nodularity noted and stable benign calcifications. However, an area of concern was palpated in the 12 o'clock position of the left breast. The patient therefore underwent a left breast ultrasound. This revealed a 4 x 3 cm solid hypoechoic lesion at 2:00 taller than wide. Biopsy was recommended. The patient herself states she did not feel anything of concern in her breasts. However she has had multiple bilateral breast biopsies. She has had 3 open left breast biopsies and 2 stereotactic right breast biopsies. All have been benign. She underwent a left breast ultrasound-guided core biopsy on 10201111. This revealed an intraductal papilloma. She subsequently underwent a needle local excisional biopsy on 12091111. This revealed intraductal papillomatosis. She had a bilateral mammogam on 08-14-20 after which an ultrasound of the left breast was recommended. This was done on the same date and repeat ultrasond in 6 months of the left breast recommend. The patient does not feel any lumps masses or nodules in either breast for which she is concerned. She is not complaining of any new breast pain. The patient has breast pain on occasion related to caffeine intake. She is not complaining of any new masses or lumps nodules in her breast. No recent history of any trauma or infection in the breast. The patient has no history of any nipple discharge or skin changes. Caffeine: One cup per day Nicotine: Negative Theophylline: Occasional Hormones: Negative Family History: sister: breast cancer at 71 Hormonal History: menarche: 14 , 2 stillborn, breast fed: none, age at first : 31 menopause: 51 BCP: 1 year hormones: none Past Surgical History: 1. thyroid 2. tonsil 3. breast biopsy 4. shoulder arthoscopic surgery 5. knee arthroscopic 6. bilateral cataract surgery Medical History: 1. fibromyalgia 2. arthtritis pain in back and knees 3. back pain 4. Meningioma which is stable/following this for 5 years, follows every 1 year Social History: smoke: none alcohol: occasional drugs: none - Constitutional Constitutional: Denies chills, Denies fever - EENT Comment: glaucoma, cataract Eyes: denies blurred vision, denies pain Ears: bilateral: tinnitus, deny: decreased hearing Ears, nose, mouth and throat: Reports headache, Reports hoarseness - Breasts Breasts: bilateral: as per HPI - Cardiovascular Cardiovascular: Reports chest pain follows with cardiology, mitral valve prolapse - Respiratory Comment: seasonal asthma - Gastrointestinal Comment: reflux IBS Gastrointestinal: Reports diarrhea - Genitourinary (Female) Genitourinary: Denies dysuria, Denies hematuria - Menstruation Menstruation: Reports postmenopausal - Musculoskeletal Comment: fibromyalgia hip pain back pain Musculoskeletal: Reports myalgias - Integumentary Comment: psoriasis Integumentary: Denies pruritus, Denies rash - Neurological Comment: meniagoma Neurological: Reports weakness - Psychiatric Psychiatric: Denies anxiety, Denies depression - Endocrine Comment: thyroid cancer Endocrine: Reports fatigue - Hematologic/Lymphatic Comment: none - Allergic/Immunologic Allergic/Immunologic: Reports seasonal allergies Objective - Vital Signs Vital signs: Vital Signs Temp 98.7 F 08/18/20 15:12 Pulse 85 08/18/20 15:12 Resp 18 08/18/20 15:12 BP 148/82 08/18/20 15:12 Pulse Ox 94 L 08/18/20 15:12 Intake & Output 08/17/20 08/18/20 08/18/20 18:59 06:59 18:59 Weight 88.451 kg - Exam BMI 30.5 - Constitutional General appearance: Present: average body habitus - EENT Eyes: Present: EOMI ENT: Present: hearing grossly normal - Respiratory Respiratory: bilateral: CTA - Cardiovascular Rhythm: regular Heart sounds: normal: S1, S2 - Gastrointestinal General gastrointestinal: Present: normal bowel sounds, soft - Integumentary Integumentary: Present: normal turgor - Musculoskeletal Musculoskeletal: Present: gait normal - Psychiatric Psychiatric: Present: A&O x's 3, appropriate affect, intact judgment & insight - Additional findings Additional findings: breast exam: BRA: sports bra inspection: well healed scar left breast Palpation: Right breast: Multiple positional exam fibrocystic changes, no dominant masses or nodules of concern Right axilla: No adenopathy of concern Left breast: Well-healed scars from prior surgery, fibrocystic changes no dominant masses or nodules of concern Left axilla: No adenopathy of concern Assessment and Plan Assessment: Impression/Plan: 1. fibromyalgia 2. arthtritis pain in back and knees 3. back pain 4. Meningioma which is stable/following this for 5 years, follows every 1 year 5. Fibrocystic breast changes 6. Recent mammogram and ultrasound for which repeat left breast ultrasound recommended in 6 months patient will come for physician exam at that time 7. If patient notes anything of concern she will call us sooner CC: Dr. Sharma encounter >15 minutes, > 50% of tiem in planning and counselling
== END | disposition home or self-care (01) ==
LOC: WWCWWP 14:43
PROVIDERS: ATTEND Surgery
DX: Z53.9 Procedure and treatment not carried out, unspecified reason (principal)

== ENCOUNTER → 2020-09-08 | Outpatient (CLI) | payer BC, MEDICARE ==
--- NOTE | 2020-09-09 04:53 | MR ---
EXAMINATION TYPE: MR brain wo/w con DATE OF EXAM: 09/08/2020 COMPARISON: August 04, 2019 HISTORY: F/U benign neoplasm of cerebral meninges CONTRAST: Standard multiplanar, multisequence MRI departmental protocol utilizing 9 mL intravenous Gadavist lela olinium contrast. There are patchy areas of increased signal in the periventricular white matter. These measure up to 1 cm. There are coalescent areas around the occipital horns of the lateral ventricles. Total number is less than 20. The ventricles have normal size. Brainstem is intact. There is no evidence of a carpet inspector finished ior fossa mass. Corpus callosum is intact. Sella turcica is intact. There is a 3.3 x 2.3 x 2.9 cm enh ancing extra-axial mass adjacent to the posterior cerebral falx on the right side. This appears to sh ow some fairly uniform enhancement and consistent with a meningioma. IMPRESSION: There is right side posterior falx meningioma measuring slightly larger than old exam. Previous exam measures 3 cm in maximum dimension and now measures 3.3 cm. Scattered white matter lesions in both cerebral hemispheres consistent with chronic small vessel isch emia or demyelinating disease not significantly different than old exam.
== END | disposition home or self-care (01) ==
LOC: RADMRIMAIN 18:30
DX: D32.0 Benign neoplasm of cerebral meninges (principal); R90.82 White matter disease, unspecified
CPT/HCPCS: 70553; A9585

== ENCOUNTER → 2020-12-07 | Outpatient (CLI) | payer BC, MEDICARE ==
--- NOTE | 2020-12-07 18:20 | CONS ---
CONSULTATION DATE OF SERVICE: 12/07/2020 This 75-year-old lady has been evaluated in Sleep Center for possible obstructive sleep apnea-hypopnea syndrome and awakenings from sleep. HISTORY OF PRESENT ILLNESS/SLEEP-WAKE EVALUATION: Patient usually goes to bed late, around 1 or 2 a.m., and sleeps until around 9 a.m. She does have problems with falling asleep, although no TV in the bedroom. She sleeps on the back position and she wakes up from sleep 3 times with nocturia. While falling asleep during the night she may have weird dreams and sometimes she wakes up from sleep with dreaming and she continues to see dreams while she is already awake. No history of sleep paralysis or cataplexy. During the day, she may take two or more naps, usually in the afternoon. [place] Sleepiness Scale is 17. PAST MEDICAL HISTORY: Positive for hypertension, fibromyalgia, asthma, acid reflux, headaches, thyroid carcinoma. PAST SURGICAL HISTORY: Right shoulder surgery, right knee arthroscopic surgery, bilateral cataract surgery, thyroidectomy. MEDICATIONS: Norvasc 5 mg once a day, amlodipine once a day, levothyroxine 112 mcg once a day, Gi-D, Prilosec, Crestor. REVIEW OF SYSTEMS: Multiple awakenings from sleep with vivid dreaming, significant excessive daytime sleepiness with extremely high [place] Sleepiness Scale of 17. PHYSICAL EXAMINATION: GENERAL: A pleasant lady without distress. VITAL SIGNS: BP 167/82, HR 78, RR 15, height 5 feet 6-3/4 inches, weight 195.8 pounds, temperature 98.0, oxygen saturation at room air 96%. HEENT: PERRLA, EOMI. Evaluation of oropharynx showed tongue protrudes midline. Mallampati II, but with very wide pillars; consequently small oropharyngeal air space. NECK: Supple. No JVD. Thyroid is not palpable. Neck measures 15-1/2 inches in circumference. LUNGS: Clear to percussion and to auscultation. Good air exchange. No wheezing or rhonchi. HEART: S1, S2 regular. No murmurs, gallops or rubs. ABDOMEN: Slightly obese. EXTREMITIES: No clubbing or cyanosis. REAL ESTATE TEACHER: Awake, alert, and oriented X3. Cranial nerves 2 to 7 intact. There is no fasciculation or atrophy. noted. No focal deficits observed. IMPRESSION: 1. Differential diagnosis includes narcolepsy without cataplexy because of extremely high level of [place] Sleepiness Scale at 17. The patient may take naps several times during the day. 2. History of thyroid carcinoma, status post thyroidectomy. Hypothyroidism, on thyroid replacement. 3. Hypertension. 4. History of fibromyalgia. 5. Acid reflux. 6. Headaches. 7. History of allergic asthma. 8. Status post right shoulder surgery. 9. Status post right knee arthroscopic surgery. 10.Status post bilateral cataract surgery. PLAN: 1. Polysomnography for evaluation of patient's breathing during sleep. 2. Multiple sleep latency test for objective evaluation of patient's symptoms of excessive daytime sleepiness if the sleep study is negative for obstructive sleep apnea-hypopnea syndrome. 3. CPAP/BiPAP titration if sleep study confirms obstructive sleep apnea-hypopnea syndrome. 4. Preferable position during sleep on the side. 5. No driving if patient feels any sleepiness. 6. I will see patient for follow up visit to explain results of testing and following plan. Thank you very much for referring this patient for consultation. Sincerely, Aryan Ocasio MD, PhD, FAASM Diplomat of [place] [employer] [place] [employer] Bicycle Technician of [facility] [place] MMODL / IJN: [id number] /
== END | disposition home or self-care (01) ==
LOC: SLEEP 14:43
PROVIDERS: ATTEND Internal Medicine
DX: G47.419 Narcolepsy without cataplexy (principal); I10 Essential (primary) hypertension; K21.9 Gastro-esophageal reflux disease without esophagitis; E03.9 Hypothyroidism, unspecified; R51.9 Headache, unspecified; Z87.09 Personal history of other diseases of the respiratory system; Z87.39 Personal history of other diseases of the musculoskeletal system and connective tissue; Z85.850 Personal history of malignant neoplasm of thyroid; Z79.890 Hormone replacement therapy; Z79.891 Long term (current) use of opiate analgesic; Z79.899 Other long term (current) drug therapy; Z90.09 Acquired absence of other part of head and neck; Z98.890 Other specified postprocedural states
CPT/HCPCS: 99211

== ENCOUNTER → 2020-12-28 | Outpatient (CLI) | payer BC ==
--- NOTE | 2020-12-29 07:06 | SFUN ---
SLEEP CENTER FOLLOW UP NOTE DATE OF SERVICE: 12/28/2020 INTERVAL HISTORY: This 75-year-old lady has been followed in the sleep Center to discuss results of the sleep studies and following plan. Patient had a polysomnogram which showed apnea-hypopnea index 5.6 for the whole night and 20.1 in REM sleep with oxygen desaturation to 78.7%. Multiple sleep latency test following polysomnogram did not confirm any significant sleepiness although patient's [place] Sleepiness Scale today significantly increased to 21 and she looked sleepy while talking to me. Apnea-hypopnea index in REM sleep although have been increased, as I mentioned above, to 20.1, and some literature data indicate that people with high apnea-hypopnea index in REM sleep may feel sleepiness, again, which was not confirmed clearly by our multiple sleep latency test yesterday. I discussed results of sleep studies with the patient in detail. MEDICATIONS: Norvasc, amlodipine, levothyroxine, Gi D, Prilosec, Crestor. PHYSICAL EXAMINATION: GENERAL: Patient in no distress. VITAL SIGNS: BP 130/90 , HR 88 , RR 12, weight 195, oxygen saturation at room air 97%. HEENT: PERRLA, EOMI, evaluation of oropharynx showed tongue protrudes midline. NECK: Supple, no JVD. Thyroid is not palpable. LUNGS: Clear to percussion and to auscultation. Good air exchange. No wheezing or rhonchi. HEART: S1, S2 regular. No murmurs, gallops, or rubs. ABDOMEN: Soft and nontender. Bowel sounds are present. No organomegaly appreciated. EXTREMITIES: No clubbing or cyanosis. HIGH SCHOOL PHYSICAL EDUCATION TEACHER: Awake, alert, and oriented X3. Cranial nerves 2 to 7 intact. There is no fasciculation or atrophy. noted. No focal deficits observed. IMPRESSION: 1. Mild obstructive sleep apnea-hypopnea syndrome. The patient with moderate abnormalities of respiration in REM sleep. The patient presents with symptoms of excessive daytime sleepiness. 2. Hypertension. 3. History of thyroid cancer. 4. History of fibromyalgia. 5. Acid reflux. 6. Headaches. 7. History of allergic asthma. 8. Status post right shoulder surgery. 9. Status post right knee arthroscopic surgery. 10.Status post bilateral cataract surgery. PLAN: 1. Patient will be started on auto Pap with low range of pressure with a small nasal pillow mask. 2. Patient should use equipment every night for the whole night. 3. I will see patient for follow-up visit to evaluate clinical response to treatment and compliance with treatment and make any necessary adjustments related to mask fitting, pressure and humidification. 4. Precautions related to driving. No driving if feeling any sleepiness. 5. Sleep hygiene with regular time in bed for 7 1/2 to 8 hours. Thank you very much for allowing me to participate in the management of your patient. Sincerely, Aryan Ocasio MD, PhD, FAASM Diplomat of [place] [employer] [place] [employer] Button Sewer of [facility] [place] MMODL / IJN: [id number] /
== END | disposition home or self-care (01) ==
LOC: SLEEP 16:17
PROVIDERS: ATTEND Internal Medicine
DX: G47.33 Obstructive sleep apnea (adult) (pediatric) (principal); I10 Essential (primary) hypertension; K21.9 Gastro-esophageal reflux disease without esophagitis; R51.9 Headache, unspecified; Z98.42 Cataract extraction status, left eye; Z98.41 Cataract extraction status, right eye; Z98.890 Other specified postprocedural states; Z87.39 Personal history of other diseases of the musculoskeletal system and connective tissue; Z85.850 Personal history of malignant neoplasm of thyroid; Z99.89 Dependence on other enabling machines and devices

== ENCOUNTER → 2021-02-14 | Outpatient (CLI) | payer BC, MEDICARE ==
--- NOTE | 2021-02-14 17:16 | SFUN ---
SLEEP CENTER FOLLOW UP NOTE DATE OF SERVICE: 02/14/2021 This patient is a 75-year-old lady who has been followed in Sleep Center for treatment of obstructive sleep apnea-hypopnea syndrome. Recently the patient had a polysomnogram which showed mild obstructive sleep apnea- hypopnea syndrome and she was started on treatment with CPAP in automatic regimen. Today is her first visit after she was started on treatment with CPAP. The patient possibly sleeps slightly better during the night but continues to have symptoms of excessive daytime sleepiness. Today her [place] Sleepiness Scale is 19. The patient had a polysomnogram with multiple sleep latency test done, but multiple sleep latency test did not show significant sleepiness. I checked her CPAP unit. Range of the pressure is 5 to 8. Average usage is 7.2 hours. The patient used it 100% of nights, average 6.2 hours per night with apnea-hypopnea index 1.8. The patient's machine was changed to a new machine she has had for 19 days. Her first machine that she got one month ago was was changed because possibly the previous machine did not calculate usage of time correctly. I checked her CPAP unit. Range of pressure is 5 to 8, average pressure 7.2. Usage was 100% on nights with average usage 6.2 hours per night. Apnea-hypopnea index only 1.8, which is normal. MEDICATIONS: Norvasc, amlodipine, levothyroxine, Gi-D, Prilosec, Crestor. PHYSICAL EXAMINATION: GENERAL: A pleasant patient in no distress. VITAL SIGNS: BP 166/82, HR 70, RR 12, weight 195.8, temperature 96.6, oxygen saturation on room air 97%. HEENT: PERRLA, EOMI. Evaluation of oropharynx showed tongue protrudes midline. NECK: Supple. No JVD. Thyroid is not palpable. LUNGS: Clear to percussion and to auscultation. Good air exchange. No wheezing or rhonchi. HEART: S1, S2 regular. No murmurs, gallops or rubs. ABDOMEN: Slightly obese. EXTREMITIES: No clubbing or cyanosis. CASINO DEALER: Awake, alert, and oriented X3. Cranial nerves 2 to 7 intact. There is no fasciculation or atrophy. noted. No focal deficits observed. IMPRESSION: 1. Mild obstructive sleep apnea-hypopnea syndrome with moderate abnormalities of respiration in REM sleep. Patient demonstrated great compliance with treatment. 2. Hypertension. 3. History of thyroid cancer. 4. History of fibromyalgia. 5. Acid reflux. 6. Headaches. 7. History of allergic asthma. 8. Status post right shoulder surgery. 9. Status post right knee arthroscopic surgery. 10.Status post bilateral cataract surgery. PLAN: 1. Patient will continue to use PAP equipment every night for the whole night. 2. Sleep hygiene with regular time in bed for at least 7-1/2 to 8 hours. 3. Precautions related to driving. No driving if feeling sleepiness. 4. I will maintain all necessary prescription for PAP supplies including mask, tube, filters. 5. Watching weight. 6. Follow-up visit in 6 months or earlier if patient has any problems. Thank you very much for allowing me to participate in the management of your patient. Sincerely, Aryan Ocasio MD, PhD, FAASM Diplomat of [place] [employer] [employer] Animal Services Officer of [facility] [place] MMODL / IJN: [id number] /
== END | disposition home or self-care (01) ==
LOC: SLEEP 15:24
PROVIDERS: ATTEND Internal Medicine
DX: G47.33 Obstructive sleep apnea (adult) (pediatric) (principal); I10 Essential (primary) hypertension; K21.9 Gastro-esophageal reflux disease without esophagitis; R51.9 Headache, unspecified; Z99.89 Dependence on other enabling machines and devices; Z79.890 Hormone replacement therapy; Z79.899 Other long term (current) drug therapy; Z79.891 Long term (current) use of opiate analgesic; Z98.890 Other specified postprocedural states; Z98.42 Cataract extraction status, left eye; Z98.41 Cataract extraction status, right eye; Z87.09 Personal history of other diseases of the respiratory system; Z87.39 Personal history of other diseases of the musculoskeletal system and connective tissue; Z85.850 Personal history of malignant neoplasm of thyroid

== ENCOUNTER → 2021-04-16 | Outpatient (CLI) | payer BC, MEDICARE ==
--- NOTE | 2021-04-16 16:05 | USB ---
EXAMINATION TYPE: US breast limited LT DATE OF EXAM: 04/16/2021 COMPARISON: 08/14/2020 CLINICAL HISTORY: R92.8 Abnormal Imaging. Targeted left breast ultrasound was performed from 12-3 o'clock and in the retroareolar region. In the area of scarring in the left breast at 2:00, there is a 0.4 x 0.3 x 0.4 cm anechoic lesion wit h posterior enhancement which is most likely due to a cyst within the scar which is less prominent th an on the prior examination at which point it measured 0.5 x 0.6 x 0.6 cm. IMPRESSION: The left breast lesion within the scar has decreased in size since the prior examination and most lik ozzie represents a cyst. Patient is due for her bilateral mammogram in August 2021. BI-RADS 2, benign.
== END | disposition home or self-care (01) ==
LOC: RADUSWWP 14:44
PROVIDERS: ATTEND Surgery
DX: N64.9 Disorder of breast, unspecified (principal)

== ENCOUNTER → 2021-04-19 | Outpatient (CLI) | payer BC, MEDICARE ==
[2021-04-19 11:14] VITALS: BP 148/81; PULSE 70; RESP 16; TEMP 98.3
--- NOTE | 2021-04-19 11:21 | P.PN ---
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 At that time there was chronic nodularity noted and stable benign calcifications. However, an area of concern was palpated in the 12 o'clock position of the left breast. The patient therefore underwent a left breast ultrasound. This revealed a 4 x 3 cm solid hypoechoic lesion at 2:00 taller than wide. Biopsy was recommended. The patient herself states she did not feel anything of concern in her breasts. However she has had multiple bilateral breast biopsies. She has had 3 open left breast biopsies and 2 stereotactic right breast biopsies. All have been benign. She underwent a left breast ultrasound-guided core biopsy on 10201111. This revealed an intraductal papilloma. She subsequently underwent a needle local excisional biopsy on 12091111. This revealed intraductal papillomatosis. She had a bilateral mammogam on 08-14-20 after which an ultrasound of the left breast was recommended. This was done on the same date and repeat ultrasond in 6 months of the left breast recommend. The repeat ultrasound of the left breast was performed on . This was felt to be benign BIRADS 2. In an area of scarring in the left breast there was a 0.4 x 0.4 cm anechoic lesion with posterior enhancement felt to be due to a cyst within the scar which was less prominent than on prior examination. The recommendation is bilateral mammogram in August 2021. The patient does not feel any lumps masses or nodules in either breast for which she is concerned. She does complain that she had some pain when the ultrasound was done on the left breast. This has improved. The patient has breast pain on occasion related to caffeine intake. She is not complaining of any new masses, lumps or nodules in her breast. No recent history of any trauma or infection in the breast. The patient has no history of any nipple discharge or skin changes. Caffeine: One cup per day/ 1 pop/day Nicotine: Negative Theophylline: Occasional Hormones: Negative Family History: sister: breast cancer at 71 patient: thyroid cancer; a benign meningioma being followed Hormonal History: menarche: 14 , 2 stillborn, breast fed: none, age at first : 31 menopause: 51 BCP: 1 year hormones: none Past Surgical History: 1. thyroid 2. tonsil 3. breast biopsy 4. shoulder arthoscopic surgery 5. knee arthroscopic 6. bilateral cataract surgery Medical History: 1. fibromyalgia 2. arthtritis pain in back and knees 3. back pain 4. Meningioma which is stable/following this for 6 years, follows every 1 year Social History: smoke: none alcohol: occasional drugs: none - Constitutional Constitutional: Denies chills, Denies fever - EENT Comment: glaucoma, cataract Eyes: denies blurred vision, denies pain Ears: bilateral: tinnitus, deny: decreased hearing Ears, nose, mouth and throat: Reports headache, Reports hoarseness - Breasts Breasts: bilateral: as per HPI - Cardiovascular Cardiovascular: Reports chest pain follows with cardiology, mitral valve prolapse - Respiratory Comment: seasonal asthma - Gastrointestinal Comment: reflux IBS Gastrointestinal: Reports diarrhea - Genitourinary (Female) Genitourinary: Denies dysuria, Denies hematuria - Menstruation Menstruation: Reports postmenopausal - Musculoskeletal Comment: fibromyalgia hip pain back pain Musculoskeletal: Reports myalgias - Integumentary Comment: psoriasis Integumentary: Denies pruritus, Denies rash - Neurological Comment: meniagoma Neurological: Reports weakness - Psychiatric Psychiatric: Denies anxiety, Denies depression - Endocrine Comment: thyroid cancer Endocrine: Reports fatigue - Hematologic/Lymphatic Comment: none - Allergic/Immunologic Allergic/Immunologic: Reports seasonal allergies Objective - Constitutional General appearance: Present: average body habitus - EENT Eyes: Present: EOMI ENT: Present: hearing grossly normal - Neck Neck: Present: normal ROM - Respiratory Respiratory: bilateral: CTA - Cardiovascular Rhythm: regular Heart sounds: normal: S1, S2 - Gastrointestinal General gastrointestinal: Present: soft - Integumentary Integumentary: Present: normal turgor - Musculoskeletal Musculoskeletal: Present: gait normal - Psychiatric Psychiatric: Present: A&O x's 3, appropriate affect, intact judgment & insight - Additional findings Additional findings: Breast exam: BRA: 38 C inspection: Bilateral grade 3 ptosis Palpation: Right breast: Multiple positional exam fibrocystic changes, no dominant masses or nodules of concern Right axilla: No adenopathy of concern Left breast: Well-healed scars from prior biopsy no dominant masses or nodules of concern Left axilla: No adenopathy of concern Assessment and Plan Assessment: Impression: 1. Stable ultrasound findings left breast these were reviewed 2. Fibrocystic breast changes bilateral 3. Mastodynia greatest left breast no lesions which would warrant interventional biopsy at this time 4. Prior history of thyroid cancer 5. Stable meningioma Plan: 1. Patient understands that caffeine may exacerbate breast discomfort, at this time she has modified her lifestyle 2. Repeat bilateral mammogram in August with physician exam at that time 3. This time there is nothing in the left breast which would warrant interventional biopsy 4. Patient reassured regarding the breast discomfort CC: Dr. Sharma
== END ==
LOC: WWCWWP 10:50
PROVIDERS: ATTEND Surgery
DX: N60.11 Diffuse cystic mastopathy of right breast (principal); N60.12 Diffuse cystic mastopathy of left breast; Z85.850 Personal history of malignant neoplasm of thyroid

== ENCOUNTER → 2021-08-16 | Outpatient (CLI) | payer BC, MEDICARE ==
--- NOTE | 2021-08-16 12:41 | MM ---
Reason for exam: additional evaluation requested from prior study. Last mammogram was performed 1 year ago. History: Patient is postmenopausal, has history of high-risk lesion on a previous biopsy at age 73, and has history of other cancer at age 66. Family history of breast cancer in sister at age 63. High risk MG pre op needle loc LT of the left breast, October 12, 2019. High risk US biopsy breast VAD LT of the left breast, August 23, 2019. Benign stereotactic core biopsy of the right breast, August 18, 2003. Core biopsy of the right breast. 3 excisional biopsies of the left breast. Took estrogen for 6 months beginning at age 51. Took progesterone for 6 months beginning at age 51. Physical Findings: Nurse did not find any significant physical abnormalities on exam. MG 3D Diag Mammo W/Cad HUMPHREY Bilateral CC and MLO view(s) were taken. Prior study comparison: April 16, 2021, left breast US breast limited LT. August 14, 2020, bilateral MG 3d diag mammo w/cad HUMPHREY. There are scattered fibroglandular densities. Finding: Architectural distortion in the left breast consistent with known excisional changes. Previous mammotome biopsy in the right breast. There is a chronic nodularity in the left breast, increased. This finding is changed when compared with previous exams. These results were verbally communicated with the patient and result sheet given to the patient on 08/16/21. ASSESSMENT: Incomplete: need additional imaging evaluation, BI-RAD 0 RECOMMENDATION: Ultrasound of the left breast.
--- NOTE | 2021-08-16 12:42 | USB ---
Reason for exam: additional evaluation requested from abnormal screening. History: Patient is postmenopausal, has history of high-risk lesion on a previous biopsy at age 73, and has history of other cancer at age 66. Family history of breast cancer in sister at age 63. High risk MG pre op needle loc LT of the left breast, October 12, 2019. High risk US biopsy breast VAD LT of the left breast, August 23, 2019. Benign stereotactic core biopsy of the right breast, August 18, 2003. Core biopsy of the right breast. 3 excisional biopsies of the left breast. Took estrogen for 6 months beginning at age 51. Took progesterone for 6 months beginning at age 51. US Breast Limited LT Technologist: Kathrine Garcia Left limited breast ultrasound including focal area of concern, retroareolar and axilla demonstrates a 0.3 x 0.2 x 0.2cm cystic lesion at 12 o'clock and a 0.4 x 0.4 x 0.3cm cystic lesion at 12 o'clock. These results were verbally communicated with the patient and result sheet given to the patient on 08/16/21. ASSESSMENT: Benign, BI-RAD 2 RECOMMENDATION: Routine screening mammogram of both breasts in 1 year.
== END | disposition home or self-care (01) ==
LOC: RADMAMWWP 10:36
PROVIDERS: ATTEND Surgery
DX: N60.02 Solitary cyst of left breast (principal); Z78.0 Asymptomatic menopausal state; Z80.3 Family history of malignant neoplasm of breast; R92.8 Other abnormal and inconclusive findings on diagnostic imaging of breast
CPT/HCPCS: 77062; 77066

== ENCOUNTER → 2021-08-23 | Outpatient (CLI) | payer BC, MEDICARE ==
[2021-08-23 13:45] VITALS: BP 138/79; PULSE 77; RESP 16; TEMP 98.2
--- NOTE | 2021-08-23 13:58 | P.PN ---
Subjective Progress Note Date: 08/23/21 Principal diagnosis: Fibrocystic breast changes Ani is a 75 year old white female status post multiple left breast biopsies the most recent being on 10-12-19. 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 She had a bilateral mammogram performed on [id number] after which it was recommended that an ultrasound of the left breast be performed. This was performed and it revealed cystic lesion at 12:00. The feeling was that was benign BIRADS 2 recommendation was for routine screening of both breast in 1 year.The patient does not feel any lumps masses or nodules for which she is concerned. Family History: sister: breast cancer at 71 patient: Meningioma being followed she did not have surgery Hormonal History: menarche: 14 , 2 stillborn, breast fed: none, age at first : 31 menopause: 51 BCP: 1 year hormones: none Past Surgical History: 1. thyroid 2. tonsil 3. breast biopsy 4. shoulder arthoscopic surgery 5. knee arthroscopic Medical History: 1. fibromyalgia 2. arthtritis 3. back pain 4. Meningioma which is stable/following this for 5 years, follows every 1 year Social History: smoke: none alcohol: occasional drugs: none - Constitutional Constitutional: Denies chills, Denies fever - EENT Comment: glaucoma, cataract Eyes: denies blurred vision, denies pain Ears: bilateral: tinnitus, deny: decreased hearing Ears, nose, mouth and throat: Reports headache, Reports hoarseness - Breasts Breasts: bilateral: as per HPI - Cardiovascular Cardiovascular: Reports chest pain - Respiratory Comment: seasonal asthma - Gastrointestinal Comment: reflux IBS Gastrointestinal: Reports diarrhea - Genitourinary (Female) Genitourinary: Denies dysuria, Denies hematuria - Menstruation Menstruation: Reports postmenopausal - Musculoskeletal Comment: fibromyalgia hip pain back pain Musculoskeletal: Reports myalgias - Integumentary Comment: psoriasis Integumentary: Denies pruritus, Denies rash - Neurological Comment: meniagoma Neurological: Reports weakness - Psychiatric Psychiatric: Denies anxiety, Denies depression - Endocrine Comment: thyroid cancer Endocrine: Reports fatigue - Hematologic/Lymphatic Comment: none - Allergic/Immunologic Allergic/Immunologic: Reports seasonal allergies Objective - Exam BMI 30.5 - Constitutional General appearance: Present: cooperative - EENT Eyes: Present: EOMI ENT: Present: hearing grossly normal - Neck Neck: Present: normal ROM - Respiratory Respiratory: bilateral: CTA - Cardiovascular Rhythm: regular Heart sounds: normal: S1, S2 - Gastrointestinal General gastrointestinal: Present: soft - Integumentary Integumentary: Present: normal turgor - Musculoskeletal Musculoskeletal: Present: gait normal - Psychiatric Psychiatric: Present: A&O x's 3, appropriate affect, intact judgment & insight - Additional findings Additional findings: Breast Exam: BRA: sports large inspection: Grade 2/3 ptosis bilaterally Palpation: Right breast: Multi-positional exam fibrocystic changes no dominant masses or nodules of concern Right axilla: No adenopathy of concern Left breast: Well-healed scars fibrocystic changes no dominant masses or nodules of concern Left axilla: No adenopathy of concern Assessment and Plan Assessment: Impression: 1. Bilateral fibrocystic breast changes 2. sister breast cancer at 71 Plan: 1. bilateral mammogram in 1 year with appointment at that time Cc: Dr. Sharma
== END ==
LOC: WWCWWP 13:35
PROVIDERS: ATTEND Surgery
DX: N60.11 Diffuse cystic mastopathy of right breast (principal); N60.12 Diffuse cystic mastopathy of left breast; M19.90 Unspecified osteoarthritis, unspecified site; Z80.3 Family history of malignant neoplasm of breast

== ENCOUNTER 2021-11-22 14:02 | Emergency (ER) | payer BC, MEDICARE ==
[2021-11-22 14:12] VITALS: RESP 16; TEMP 99.5
[2021-11-22] MEDS ORDERED: ONDANSETRON 4 MG/2 ML VIAL IVP STA (14:48)
[2021-11-22] MEDS ORDERED: HYDROmorphone 0.5 MG/0.5 ML SYRINGE IVP STA ×2 (14:48→17:34)
--- NOTE | 2021-11-22 15:03 | ED ---
Headache HPI - General Mode of arrival: ambulatory Limitations: no limitations <Radha Alas - Last Filed: 11/22/21 14:53> <Ari Chen - Last Filed: 11/22/21 17:58> - General Chief Complaint: Headache Stated Complaint: Headache-Sent by Time Seen by Provider: 11/22/21 14:20 - History of Present Illness Initial Comments: Patient is a 76-year-old female with a past medical history of meningioma who presents to the ED with the chief complaint of headache 2 days. No head trauma. She reports that she was diagnosed with a meningioma a couple years ago and has monitored it since. Patient reports a throbbing headache behind her eyes, 10/10 in severity. She has associated neck pain and intermittent dizziness that she is unable to describe. Patient states that she is currently experiencing chills. She denies fever, visual changes, chest pain, shortness of breath, throat, cough, abdominal pain, recent sick contacts. She is COVID-19 vaccinated. (Radha Alas) - Related Data Home Medications Medication Instructions Recorded Confirmed Omeprazole Magnesium [PriLOSEC OTC] 20 mg PO DAILY 11/22/21 11/22/21 amLODIPine [Norvasc] 10 mg PO DAILY 11/22/21 11/22/21 Allergies Allergy/AdvReac Type Severity Reaction Status Date / Time No Known Allergies Allergy Verified 11/22/21 16:58 Review of Systems ROS Other: All systems not noted in ROS Statement are negative. <Radha Alas - Last Filed: 11/22/21 14:53> ROS Other: All systems not noted in ROS Statement are negative. <Ari Chen - Last Filed: 11/22/21 17:58> ROS Statement: Those systems with pertinent positive or pertinent negative responses have been documented in the HPI. Past Medical History Past Medical History: Fibromyalgia, GERD/Reflux, Hyperlipidemia, Hypertension, Thyroid Disorder Additional Past Medical History / Comment(s): HAS MENINGIOMA-BEING WATCHED History of Any Multi-Drug Resistant Organisms: None Reported Past Surgical History: Breast Surgery, Orthopedic Surgery Additional Past Surgical History / Comment(s): thyroidectomy; left breast biopsy benign; right breast biopsy x2 benign; COLONOSCOPY; LT SHOULDER SX; BILAT KNEE SX; Past Anesthesia/Blood Transfusion Reactions: No Reported Reaction Past Psychological History: No Psychological Hx Reported Smoking Status: Never smoker Past Alcohol Use History: Occasional Past Drug Use History: None Reported - Past Family History Sister(s) Family Medical History: Cancer <Radha Alas - Last Filed: 11/22/21 14:53> General Exam Limitations: no limitations General appearance: alert, in no apparent distress Head exam: Present: atraumatic, normocephalic, normal inspection Eye exam: Present: normal appearance, PERRL, EOMI. Absent: scleral icterus, conjunctival injection, nystagmus, periorbital swelling ENT exam: Present: normal exam, mucous membranes moist Neck exam: Present: normal inspection, full ROM. Absent: tenderness, meningismus, lymphadenopathy Respiratory exam: Present: normal lung sounds bilaterally. Absent: respiratory distress, wheezes, rales, rhonchi, stridor Cardiovascular Exam: Present: regular rate, normal rhythm, normal heart sounds. Absent: systolic murmur, diastolic murmur, rubs, gallop, clicks GI/Abdominal exam: Present: soft, normal bowel sounds. Absent: distended, tenderness, guarding, rebound, rigid Back exam: Present: normal inspection Neurological exam: Present: alert Psychiatric exam: Present: normal affect, normal mood Skin exam: Present: warm, dry, intact, normal color. Absent: rash <Radha Alas - Last Filed: 11/22/21 14:53> Course Vital Signs 11/22/21 11/22/21 11/22/21 14:10 16:06 16:19 Temperature 99.5 F Pulse Rate 81 83 85 Respiratory 16 16 16 Rate Blood Pressure 171/76 162/89 140/82 O2 Sat by Pulse 97 97 98 Oximetry Medical Decision Making <Ari Chen - Last Filed: 11/22/21 17:58> - Medical Decision Making Patient was seen and evaluated along with physician educational assistant, Radha Alas. Briefly, patient is 76-year-old female presents with episode of altered mental status and headache for the last 48 hours purchase history meningioma. Computed tomography scan was ordered by physician educational assistant showing small subdural hematoma in the left parietal area measuring 6 mm. Patient had elevated blood pressures with systolics of 171. She is given 1 push dose of labetalol with adequate improvement of blood pressure to 140s over 82. Case discussed with multiple hospitals. Finally we were able to recontact [facility] and they will be accepting care for this patient for urinary ER transfer. Patient's neurosurgeon is Dr. Newton based out of [place] in [place]. Patient does not take anticoagulation medications. Accepting physician is Dr. Morrell. (Ari Chen) Critical Care Time Critical Care Time: Yes Total Critical Care Time: 33 <Ari Chen - Last Filed: 11/22/21 17:58> Disposition <Radha Alas - Last Filed: 11/22/21 14:53> - Out of Hospital Transfer - Req. Specs Out of Hospital Transfer - Requested Specifics: Other Emergency Center ([facility]) <Ari Chen - Last Filed: 11/22/21 17:58> Clinical Impression: Subdural hemorrhage Disposition: OTHER INSTITUTION NOT DEFINED Condition: Critical Referrals: Romel Sharma DO [Primary Care Provider] - 1-2 days
--- NOTE | 2021-11-22 15:45 | CT ---
EXAMINATION TYPE: CT brain wo con DATE OF EXAM: 11/22/2021 HISTORY: headache, known meningioma CT DLP: 1135.4 mGycm. Automated Exposure Control for Dose Reduction was Utilized. TECHNIQUE: CT scan of the head is performed without contrast. COMPARISON: CT brain November 22, 2015r. FINDINGS: There is partially calcified right parietal 3.0 x 2.7 cm meningioma axial image 51 redemons trated. Lesion stable in size and appearance accounting for technical differences . There is mild to moderate sulcal prominence greatest over the bilateral frontal lobes redemonstrated. No hydrocephalus is seen. No midline shift is noted. There is new acute or subacute left-sided extra -axial suspected subdural hemorrhage seen greatest superiorly measuring up to 6 mm in thickness with some hypodense and hyperdense component. There is additional focal 3 mm oval hyperdensity near the le ft parietal temporal junction consistent with acute extra-axial hemorrhage extending into the carotid posterior to the left temporal lobe axial image 24 for reference. Small amount calcification right basal ganglia axial image 28 is redemonstrated. Crisostomo-white matter di fferentiation is preserved. Globes are intact and visualized sinuses are clear. IMPRESSION: New small acute left sided extra-axial hemorrhage may have a subacute component. There i s involvement over the left frontal parietal lobe superiorly and left parietal lobe inferiorly. Suspe ct subdural in etiology. No midline shift or new hydrocephalus. Case discussed with emergency care physician family and divorce legal assistant via telephone at time of dictation.
[2021-11-22] MEDS ORDERED: LABETALOL 5 MG/ML VIAL MDV IVP STA (16:04)
[2021-11-22 16:20] VITALS: BP 140/82; PULSE 85
[2021-11-22 18:04] LABS: HCT 38.7 % (34.0-46.0); HGB 12.8 gm/dL (11.4-16.0); MCH 30.1 pg (25.0-35.0); MCHC 33.1 g/dL (31.0-37.0); MCV 91.1 fL (80.0-100.0); Mean Platelet Volume 6.9; Platelet Count 286 k/uL (150-450); RBC 4.25 m/uL (3.80-5.40); RDW 13.1 % (11.5-15.5); WBC 11.6 k/uL (3.8-10.6)
[2021-11-22 18:29] LABS: Lymphocytes # (M) 1.51 k/uL (1.0-4.8); Monocytes # (M) 0.35 k/uL (0-1.0); Neutrophils # (M) 9.74 k/uL (1.3-7.7); Neutrophils % (M) 84 %; Nucleated Red Blood Cells 0 /100 WBC (0-0); Total Cells Counted 100
[2021-11-22 18:30] LABS: African American GFR (CKD) >90 (>60 ml/min/1.73 sqM); Anion Gap 9 mmol/L; Blood Urea Nitrogen 12 mg/dL (7-17); Calcium 6.8 mg/dL (8.4-10.2); Carbon Dioxide 28 mmol/L (22-30); Chloride 103 mmol/L (98-107); Glucose 113 mg/dL (74-99); Non-African American GFR(CKD) >90 (>60 ml/min/1.73 sqM); Potassium 3.2 mmol/L (3.5-5.1); Sodium 140 mmol/L (137-145)
[2021-11-22 18:36] LABS: INR 0.9 (<1.2); Prothrombin Time 9.8 sec (9.0-12.0)
[2021-11-22 18:43] LABS: Partial Thromboplastin Time 21.3 sec (22.0-30.0)
== END 2021-11-22 18:31 | disposition other institution (70) ==
LOC: EC 14:02
DX: I62.00 Nontraumatic subdural hemorrhage, unspecified (principal); I10 Essential (primary) hypertension; K21.9 Gastro-esophageal reflux disease without esophagitis; Z79.899 Other long term (current) drug therapy; Z20.822 Contact with and (suspected) exposure to COVID-19
CPT/HCPCS: 36415; 80048; 85025; 85610; 85730; 87635; 70450; 99291; 96374; 96376; 96375; J2405; J1170

== ENCOUNTER 2021-11-27 12:22 | Inpatient (IN) | payer BC, MEDICARE ==
[2021-11-27 14:04] LABS: Glucose,Whole Blood 97 mg/dL (75-99)
--- NOTE | 2021-11-27 14:30 | ED ---
General Adult HPI - General Chief complaint: Neuro Symptoms/Deficit Stated complaint: Headaches/dizzy/right numbness Time Seen by Provider: 11/27/21 14:00 Source: patient, RN notes reviewed, old records reviewed Mode of arrival: wheelchair Limitations: no limitations - History of Present Illness Initial comments: This is a 76-year-old female presents emergency Department complaining of loss of function of her right arm last night and again today. Patient states about 5 days ago she was brought into the emergency department because of his severe hea dache and him being off balance. Patient was found to have a intercranial hemorrhage and she was transferred [facility]. Patient was sent home yesterday when she got home later in the evening she was washing her hair and her right arm went completely limp though she could move her hand she could not lift her arm. Patient states it lasts about a half an hour and then resolved. Patient went to bed get up this morning at about 10:00 this morning it occurred again but it only lasted about 15 minutes. Patient states her headache started again last night and proceeded to be there this morning and continues currently. Patient has no weakness now no numbness now. Patient denies any visual disturbance or speech disturbance. Patient states since she's been let out of the hospital she has had some pain with swallowing occasionally but no difficulty swallowing. Patient denies any pain with swelling currently. Patient denies any recent fever chills or cough per patient denies any chest pain difficult breathing shortest breath. - Related Data Home Medications Medication Instructions Recorded Confirmed Omeprazole Magnesium [PriLOSEC OTC] 20 mg PO DAILY PRN 11/22/21 11/27/21 amLODIPine [Norvasc] 10 mg PO DAILY 11/22/21 11/27/21 Atorvastatin Calcium [Lipitor] 10 mg PO HS 11/27/21 11/27/21 Calcium Carbonate [Calcium] 600 mg PO DAILY 11/27/21 11/27/21 Cholecalciferol [Vitamin D3 (25 25 mcg PO DAILY 11/27/21 11/27/21 Mcg = 1000 Iu)] HYDROcodone/APAP 5-325MG [[place] 1 tab PO Q6HR PRN 11/27/21 11/27/21 5-325] Ibuprofen [Motrin] 800 mg PO Q8H PRN 11/27/21 11/27/21 Levothyroxine Sodium 125 mcg PO DAILY 11/27/21 11/27/21 Lisinopril [Prinivil] 10 mg PO DAILY 11/27/21 11/27/21 predniSONE [Deltasone] 40 mg PO DAILY 11/27/21 11/27/21 Allergies Allergy/AdvReac Type Severity Reaction Status Date / Time No Known Allergies Allergy Verified 11/27/21 16:15 Review of Systems ROS Statement: Those systems with pertinent positive or pertinent negative responses have been documented in the HPI. ROS Other: All systems not noted in ROS Statement are negative. Past Medical History Past Medical History: Fibromyalgia, GERD/Reflux, Hyperlipidemia, Hypertension, Thyroid Disorder Additional Past Medical History / Comment(s): HAS MENINGIOMA-BEING WATCHED, br ain bleed History of Any Multi-Drug Resistant Organisms: None Reported Past Surgical History: Breast Surgery, Orthopedic Surgery Additional Past Surgical History / Comment(s): thyroidectomy; left breast biopsy benign; right breast biopsy x2 benign; COLONOSCOPY; LT SHOULDER SX; BILAT KNEE SX; Past Anesthesia/Blood Transfusion Reactions: No Reported Reaction Past Psychological History: No Psychological Hx Reported Smoking Status: Never smoker Past Alcohol Use History: Occasional Past Drug Use History: None Reported - Past Family History Sister(s) Family Medical History: Cancer General Exam - General Exam Comments Initial Comments: GENERAL: Patient is well-developed and well-nourished. Patient is nontoxic and well- hydrated and is in no acute distress. ENT: Neck is soft and supple. No significant lymphadenopathy is noted. Oropharynx is clear. Moist mucous membranes. Neck has full range of motion without eliciting any pain. EYES: The sclera were anicteric and conjunctiva were pink and moist. Extraocular movements were intact and pupils were equal round and reactive to light. Eyelids were unremarkable. PULMONARY: Unlabored respirations. Good breath sounds bilaterally. No audible rales rhonchi or wheezing was noted. CARDIOVASCULAR: There is a regular rate and rhythm without any murmurs gallops or rubs. ABDOMEN: Soft and nontender with normal bowel sounds. SKIN: Skin is clear with no lesions or rashes and otherwise unremarkable. NEUROLOGIC: Patient is alert and oriented x3. Cranial nerves II through XII are grossly intact. Left leg is weak compared to the right. Normal speech, volume and content. Symmetrical smile. MUSCULOSKELETAL: Patient's left leg is slightly weak compared to the right. Patient does not know when this began. Patient states she didn't notice until I tested the. LYMPHATICS: No significant lymphadenopathy is noted PSYCHIATRIC: Normal psychiatric evaluation. Limitations: no limitations Course Vital Signs 11/27/21 12:57 Temperature 98.4 F Pulse Rate 80 Respiratory 20 Rate Blood Pressure 154/89 O2 Sat by Pulse 94 L Oximetry Medical Decision Making - Medical Decision Making EKG shows normal sinus rhythm at 74 bpm ID interval 232 QRS is 80 QT interval 398 QTC is 441. Patient's EKG shows no ST segment elevation or depression. CT of the brain showed subdural bleed which was smaller than it had been on the previous scan. Patient's NIH remained 0. I did a CTA per Dr. Mojica's request it did not show any acute abnormality. I spoke with Dr. Staley he agreed to admit the patient admitted the patient I wrote admitting orders - Lab Data Result diagrams: 11/27/21 14:29 11/27/21 14:29 Lab Results 11/27/21 11/27/21 11/27/21 Range/Units 14:02 14:29 14:29 WBC 9.7 (3.8-10.6) k/uL RBC 4.77 (3.80-5.40) m/uL Hgb 14.3 (11.4-16.0) gm/dL Hct 43.6 (34.0-46.0) % MCV 91.3 (80.0-100.0) fL MCH 30.0 (25.0-35.0) pg MCHC 32.8 (31.0-37.0) g/dL RDW 12.8 (11.5-15.5) % Plt Count 365 (150-450) k/uL MPV 7.0 Neutrophils % 83 % Lymphocytes % 12 % Monocytes % 4 % Eosinophils % 0 % Basophils % 0 % Neutrophils # 8.1 H (1.3-7.7) k/uL Lymphocytes # 1.2 (1.0-4.8) k/uL Monocytes # 0.4 (0-1.0) k/uL Eosinophils # 0.0 (0-0.7) k/uL Basophils # 0.0 (0-0.2) k/uL PT 9.6 (9.0-12.0) sec INR 0.9 (<1.2) APTT 22.1 (22.0-30.0) sec Sodium (137-145) mmol/L Potassium (3.5-5.1) mmol/L Chloride (98-107) mmol/L Carbon Dioxide (22-30) mmol/L Anion Gap mmol/L BUN (7-17) mg/dL Creatinine (0.52-1.04) mg/dL Est GFR (CKD-EPI)AfAm (>60 ml/min/1.73 sqM) Est GFR (CKD-EPI)NonAf (>60 ml/min/1.73 sqM) Glucose (74-99) mg/dL POC Glucose (mg/dL) 97 (75-99) mg/dL POC Glu Rag Baler ID Isai Pepper Calcium (8.4-10.2) mg/dL Total Bilirubin (0.2-1.3) mg/dL AST (14-36) U/L ALT (4-34) U/L Alkaline Phosphatase (38-126) U/L Troponin I (0.000-0.034) ng/mL Total Protein (6.3-8.2) g/dL Albumin (3.5-5.0) g/dL 11/27/21 11/27/21 Range/Units 14:29 14:29 WBC (3.8-10.6) k/uL RBC (3.80-5.40) m/uL Hgb (11.4-16.0) gm/dL Hct (34.0-46.0) % MCV (80.0-100.0) fL MCH (25.0-35.0) pg MCHC (31.0-37.0) g/dL RDW (11.5-15.5) % Plt Count (150-450) k/uL MPV Neutrophils % % Lymphocytes % % Monocytes % % Eosinophils % % Basophils % % Neutrophils # (1.3-7.7) k/uL Lymphocytes # (1.0-4.8) k/uL Monocytes # (0-1.0) k/uL Eosinophils # (0-0.7) k/uL Basophils # (0-0.2) k/uL PT (9.0-12.0) sec INR (<1.2) APTT (22.0-30.0) sec Sodium 139 (137-145) mmol/L Potassium 4.4 (3.5-5.1) mmol/L Chloride 102 (98-107) mmol/L Carbon Dioxide 26 (22-30) mmol/L Anion Gap 11 mmol/L BUN 21 H (7-17) mg/dL Creatinine 0.56 (0.52-1.04) mg/dL Est GFR (CKD-EPI)AfAm >90 (>60 ml/min/1.73 sqM) Est GFR (CKD-EPI)NonAf >90 (>60 ml/min/1.73 sqM) Glucose 105 H (74-99) mg/dL POC Glucose (mg/dL) (75-99) mg/dL POC Glu Rag Baler ID Calcium 8.5 (8.4-10.2) mg/dL Total Bilirubin 0.7 (0.2-1.3) mg/dL AST 34 (14-36) U/L ALT 33 (4-34) U/L Alkaline Phosphatase 99 (38-126) U/L Troponin I <0.012 (0.000-0.034) ng/mL Total Protein 7.9 (6.3-8.2) g/dL Albumin 4.5 (3.5-5.0) g/dL Disposition Clinical Impression: Transient cerebral ischemia, Subdural hematoma Disposition: ADMITTED IP TO THIS HOSP Referrals: Romel Sharma DO [Primary Care Provider] - 1-2 days Time of Disposition: 17:36
[2021-11-27 14:43] LABS: Basophils % (A) 0 %; Eosinophils % (A) 0 %; HCT 43.6 % (34.0-46.0); HGB 14.3 gm/dL (11.4-16.0); Lymphocytes # (A) 1.2 k/uL (1.0-4.8); Lymphocytes % (A) 12 %; MCHC 32.8 g/dL (31.0-37.0); MCV 91.3 fL (80.0-100.0); Monocytes # (A) 0.4 k/uL (0-1.0); Monocytes % (A) 4 %; Neutrophils # (A) 8.1 k/uL (1.3-7.7); Neutrophils % (A) 83 %; Platelet Count 365 k/uL (150-450); RBC 4.77 m/uL (3.80-5.40); RDW 12.8 % (11.5-15.5); WBC 9.7 k/uL (3.8-10.6)
[2021-11-27 14:48] LABS: INR 0.9 (<1.2); Partial Thromboplastin Time 22.1 sec (22.0-30.0); Prothrombin Time 9.6 sec (9.0-12.0)
[2021-11-27 14:49] LABS: ALT 33 U/L (4-34); AST 34 U/L (14-36); African American GFR (CKD) >90 (>60 ml/min/1.73 sqM); Albumin 4.5 g/dL (3.5-5.0); Alkaline Phosphatase 99 U/L (38-126); Anion Gap 11 mmol/L; Blood Urea Nitrogen 21 mg/dL (7-17); Calcium 8.5 mg/dL (8.4-10.2); Carbon Dioxide 26 mmol/L (22-30); Chloride 102 mmol/L (98-107); Glucose 105 mg/dL (74-99); Non-African American GFR(CKD) >90 (>60 ml/min/1.73 sqM); Potassium 4.4 mmol/L (3.5-5.1); Sodium 139 mmol/L (137-145); Total Bilirubin 0.7 mg/dL (0.2-1.3); Total Protein 7.9 g/dL (6.3-8.2)
--- NOTE | 2021-11-27 15:14 | CT ---
EXAMINATION TYPE: CT brain wo con DATE OF EXAM: 11/27/2021 COMPARISON: 11/22/2021 HISTORY: right arm numbness, left side headache, light sensitivity, h/o brain bleed last week, histo ry of meningioma CT DLP: 1045.[address] of the brain was performed. The ventricles, basal cisterns and sulci overlying the cerebral convexities demonstrate mild enlargem ent. Small left-sided subdural hematoma persists although is smaller in size. Thickness component is seen mid to posterior left parietal region measuring 4.9 mm. There appears to be interhemispheric componen t posteriorly which extends over the left-sided tentorium unchanged from prior study. No new hemorrha ge identified. No midline shift. There is decreased attenuation about the periventricular white matter and deep white matter of both c erebral hemispheres, compatible with chronic small vessel ischemia. Differential diagnosis does inclu de demyelination. Stable meningioma high right frontal parietal region. Osseous calvarium is intact. If symptoms persist consider MRI. IMPRESSION: 1. Small left-sided subdural hematoma persists although is smaller in size. Thickness component is se en mid to posterior left parietal region measuring 4.9 mm. There appears to be interhemispheric compo nent posteriorly which extends over the left-sided tentorium unchanged from prior study. No new hemor rhage identified. No midline shift.
--- NOTE | 2021-11-27 17:27 | CT ---
EXAMINATION TYPE: CT angio head neck CT DLP: 385.8 mGycm, Automated exposure control for dose reduction was used. DATE OF EXAM: 11/27/2021 5:06 PM COMPARISON: CT brain same day. CLINICAL INDICATION:Female, 76 years old with history of tia, TIA. TECHNIQUE: Axially acquired helical CT angiogram of the head and neck was obtained with contrast util izing 75 cc of Isovue-370 administered intravenously. Axial images are supplemented with 3D reconstru ctions which were post-processed at an independent workstation. FINDINGS: CTA HEAD: No evidence of acute intracranial hemorrhage, mass effect, or midline shift. The ventricles, sulci, a nd cisterns are unremarkable. The visualized portions of the internal carotid arteries, middle cerebral arteries, anterior cerebral arteries, and posterior cerebral arteries are patent. origins of the posterior cerebral arteri es bilaterally. The basilar and vertebral arteries are patent. CTA NECK: The common carotid arteries demonstrate medialization bilaterally. Right Carotid System: The common carotid artery and external carotid artery are patent. The carotid bifurcation demonstrate s no evidence of hemodynamically significant stenosis. The remaining portions of the internal carotid artery demonstrate normal size without significant narrowing. Left Carotid System: The common carotid artery and external carotid artery are patent. The carotid bifurcation demonstrate s no evidence of hemodynamically significant stenosis. The remaining portions of the internal carotid artery demonstrate normal size without significant narrowing. Vertebral arteries are patent without evidence hemodynamically significant stenosis. As a three-vessel aortic arch. The origins of the great vessels are patent. No evidence of hemodynami vilma significant stenosis. The origins of the great vessels and vertebral arteries appear unremarkable. The vertebral arteries are patent. IMPRESSION: 1. No evidence of dissection of the cervical internal carotid arteries or vertebral arteries or any e vidence of significant stenosis at the carotid bifurcations. 2. No evidence of high-grade stenosis or intracranial aneurysm.
[2021-11-27] MEDS ORDERED: ALPRAZolam 0.25 MG TAB PO PRN (20:51)
[2021-11-27] MEDS ORDERED: NALOXONE 0.4 MG/ML 1 ML VIAL IV PRN (20:51)
[2021-11-27] MEDS ORDERED: ONDANSETRON 4 MG/2 ML VIAL IVP PRN (20:51)
[2021-11-27] MEDS ORDERED: MELATONIN 3 MG TABLET PO PRN (20:51)
[2021-11-27] MEDS ORDERED: LACTULOSE 20 GM/30 ML CUP PO PRN (20:51)
[2021-11-27] MEDS ORDERED: PANTOPRAZOLE 40 MG TABLET PO PRN (20:53)
--- NOTE | 2021-11-27 20:55 | P.HPIM ---
History of Present Illness H&P Date: 11/27/21 Chief Complaint: Right down weakness This is a pleasant 76-year-old patient who follows Dr. Sharma. Chronic stable medical conditions include fibromyalgia, GERD, hypertension, hyperlipidemia, hypothyroid, meningioma. Patient is accompanied by her . On November 22, patient presented to our ER with headache for 2 days. She had a throbbing headache behind her eyes 10 out of 10 in severity. She also some neck pain and intermittent dizziness. Computed tomography scan of the brain showed a: New small acute left sided extra-axial hemorrhage may have was some acute component. Involvement over the left frontal parietal lobe superiorly and left parietal lobe inferiorly. Suspect subdural. No midline shift. Patient was then transferred to [facility]. She did undergo a carotid Doppler and 2-D echo. She was discharged yesterday evening. No surgical intervention was done. While patient is that patient still remained a bit unsteady in the legs. And had slight headache that persisted. Last night patient noticed that her right thumb Adcon floppy admitted power came back again. This morning patient is able to comb her hair brush her teeth and then later she noticed that her right arm again became weak. Some numbness in the same. Was not able to lift it above 90. She's also noticed some change in vision today. No change in speech or swallowing. Some headache is still present. ER physician Dr Ruff. called me.. I did ask him to speak to the on-call neurologist Dr. Mojica. Review of systems: GEN.: Tired EYES: None HEENT: None NECK: None RESPIRATORY: None CARDIOVASCULAR: None GASTROINTESTINAL: None GENITOURINARY: Urinary incontinence MUSCULOSKELETAL: Joint pains LYMPHATICS: None HEMATOLOGICAL: None PSYCHIATRY: None NEUROLOGICAL: As above, has trouble sleeping Past medical history to include: Fibromyalgia, GERD, hyperlipidemia, hypertension, hypothyroid, meningioma being followed by neurosurgeon. Social history: . . No smoking. Alcohol occasionally. Family history: Cancer Physical examination: VITAL SIGNS: 97.9, 66, 16, 161/87, 92% room air GENERAL: BMI 27.4, reclining bed, awake, tired. EYES: Pupils equal. Conjunctiva normal. HEENT: External appearance of nose and ears normal, oral cavity grossly normal. NECK: JVD not raised; masses not palpable. HEART: First and second heart sounds are normal; no edema. LUNGS: Respiratory rate normal; clear to auscultation. ABDOMEN: Soft, nontender, liver spleen not palpable, no masses palpable. PSYCH: Alert and oriented x3; mood and affect slightly anxiousl. MUSCULOSKELETAL:No Clubbing/cyanosis;muscles-grossly intact. Evidence of OA NEUROLOGICAL: [Cranial nerves grossly intact; no facial asymmetry, power in the left leg 4/5. Some increase in left knee reflex. LYMPHATICS: No lymph nodes palpable in the axilla and neck INVESTIGATIONS, reviewed in the clinical context: White count 9.7 hemoglobin 14.3 platelets 365 potassium 4.4 creatinine 0.56 Coronavirus [PCR] called not detected EKG tracing personally reviewed by me-no sinus rhythm. Flipped T waves in lead 1 aVL Computed tomography scan of the brain: Small left-sided subdural hematoma persist although small in size compared to the previous one. Thickness component is seen with the posterior left parietal region measuring 4.9 mm.. There appears to be interhemispheric component posteriorly which extends over the left-sided tentorium unchanged from the prior study. No new hemorrhage. No midline shift. Previous results: Previous computed tomography scan results reviewed/noted Assessment and plan: -This patient presents with right arm weakness that appeared to feel floppy yesterday evening improved and again this afternoon felt the same. Was somewhat better now. She also states that she noticed when she signed the papers for handwriting all of his unsteady when she left the hospital yesterday. It does appear that the hemorrhage in the brain even the smallest over the area of the right arm. Given the fluctuating nature of same and no increase in size, it may be better to just wait and watch. She was evaluated by neurosurgeon of the other facility. Depending on the clinical course further action will be taken. We do not have neurosurgery at our facility. Neurology has been consulted. Patient does have a clip in the breasts from breast biopsy 2 years ago. He may have to determine the type of the clip in case MRI of the brain is to be done. Note also that patient has some weakness of the left leg. Has some change in vision. We will therefore order VINCENT. Repeat 2-D echocardiogram -Subacute subdural hematoma on the left side -Essential hypertension Amlodipine 10 mg a day, Prinivil 10 mg a day -Hyperlipidemia Lipitor 10 mg daily at bedtime -Hypothyroid Levothyroxine 125 g a day -Primary osteoarthritis multiple joints bilateral Tylenol as needed -Chronic insomnia, idiopathic Melatonin -Chronic urinary stress incontinence Resume home medications. Neuro checks. Neurology consultation. VINCENT. . PTOT. Past Medical History Past Medical History: Fibromyalgia, GERD/Reflux, Hyperlipidemia, Hypertension, Thyroid Disorder Additional Past Medical History / Comment(s): HAS MENINGIOMA-BEING WATCHED, brain bleed History of Any Multi-Drug Resistant Organisms: None Reported Past Surgical History: Breast Surgery, Orthopedic Surgery Additional Past Surgical History / Comment(s): thyroidectomy; left breast biopsy benign; right breast biopsy x2 benign; COLONOSCOPY; LT SHOULDER SX; BILAT KNEE SX; Past Anesthesia/Blood Transfusion Reactions: No Reported Reaction Past Psychological History: No Psychological Hx Reported Smoking Status: Never smoker Past Alcohol Use History: Occasional Past Drug Use History: None Reported - Past Family History Sister(s) Family Medical History: Cancer Medications and Allergies Home Medications Medication Instructions Recorded Confirmed Type Omeprazole Magnesium [PriLOSEC OTC] 20 mg PO DAILY PRN 11/22/21 11/27/21 History amLODIPine [Norvasc] 10 mg PO DAILY 11/22/21 11/27/21 History Atorvastatin Calcium [Lipitor] 10 mg PO HS 11/27/21 11/27/21 History Calcium Carbonate [Calcium] 600 mg PO DAILY 11/27/21 11/27/21 History Cholecalciferol [Vitamin D3 (25 25 mcg PO DAILY 11/27/21 11/27/21 History Mcg = 1000 Iu)] HYDROcodone/APAP 5-325MG [[place] 1 tab PO Q6HR PRN 11/27/21 11/27/21 History 5-325] Ibuprofen [Motrin] 800 mg PO Q8H PRN 11/27/21 11/27/21 History Levothyroxine Sodium 125 mcg PO DAILY 11/27/21 11/27/21 History Lisinopril [Prinivil] 10 mg PO DAILY 11/27/21 11/27/21 History predniSONE [Deltasone] 40 mg PO DAILY 11/27/21 11/27/21 History Allergies Allergy/AdvReac Type Severity Reaction Status Date / Time No Known Allergies Allergy Verified 11/27/21 16:15 Physical Exam Vitals: Vital Signs Temp Pulse Resp BP Pulse Ox 11/27/21 20:14 97.9 F 66 16 161/87 92 L 11/27/21 12:57 98.4 F 80 20 154/89 94 L Intake and Output 11/27/21 11/27/21 11/27/21 06:59 14:59 22:59 Other: Weight 79.379 kg Results CBC & Chem 7: 11/27/21 14:29 11/27/21 14:29 Labs: Abnormal Lab Results - Last 24 Hours (Table) 11/27/21 11/27/21 Range/Units 14:29 14:29 Neutrophils # 8.1 H (1.3-7.7) k/uL BUN 21 H (7-17) mg/dL Glucose 105 H (74-99) mg/dL
[2021-11-27] MEDS: HYDROcodone/APAP 5-325MG 1 EACH TAB PO PRN (21:04)
[2021-11-27] MEDS: ATORVASTATIN 10 MG TAB PO SCH (21:23)
[2021-11-27] MEDS: lisinopriL 10 MG TAB PO SCH (21:24)
[2021-11-28] MEDS: HYDROcodone/APAP 5-325MG 1 EACH TAB PO PRN ×2 (07:25→21:57)
[2021-11-28] MEDS: LEVOTHYROXINE 125 MCG TAB PO SCH (07:26)
[2021-11-28 09:14] LABS: Chol/HDL Ratio 3.82 Ratio; LDL Cholesterol,Calculated 131.4 mg/dL (0.0-131.0)
--- NOTE | 2021-11-28 09:44 | P.CRDCN ---
History of Present Illness History of present illness: HISTORY OF PRESENTING ILLNESS This is a pleasant 76-year-old female past medical history significant for hypertension, hyperlipidemia, hypothyroidism, meningioma. She follows in the office with Dr. Alcocer. We have been asked to see in consultation for a VINCENT. Patient presents to the emergency department with complaints of right arm weakness. Patient recently presented emergency department 11/22/2021 with left sided neck, back and a headache. CT of the brain at that time revealed new smal l acute left sided extraaxial hemorrhage may have a subacute component. Patient was transferred to [facility]. She did have a 2D echocardiogram done. She did not have any surgical intervention. She was discharged. Yesterday she states that she was taking a shower and felt her right arm fall, she states it felt like " weight". She states it resolved and then returned and wanted to come to the ER for further evaluation. She denies headache, chest pain, shortness of breath, lightheadedness, dizziness, or facial droop. DIAGNOSTICS EKG reveals sinus rhythm, T wave inversion in lead I, AvL and V2, no significant ST or T-wave abnormalities. CT of the brain revealed small left-sided subdural hematoma persists although smaller No new hemorrhage identified. No midline shift. There appears to be intrahemispheric component posteriorly which extends over the left sided tentorium unchanged from prior study Telemetry tracings indicate sinus mechanism CT angiogram revealed no evidence of dissection of the cervical internal carotid arteries. No evidence of significant stenosis. Laboratory reviewed, WBC 9.7, hemoglobin 14.3, platelets 365, sodium 139, potassium 4.4, BUN 21, serum current 0.5, troponin negative 1,covid Negative, triglycerides 207, cholesterol 234, LDL 131, HDL 61 Current home medications include atorvastatin 10 mg, lisinopril 10 mg, amlodipine 10 mg daily Most recent echocardiogram 2018 revealed EF 55%, no significant wall motion abnormalities. REVIEW OF SYSTEMS At the time of my exam: CONSTITUTIONAL: Denies fever or chills. CARDIOVASCULAR: Denies chest pain, shortness of breath, orthopnea, PND or palpitations. RESPIRATORY: Denies cough. GASTROINTESTINAL: Denies abdominal pain, diarrhea, constipation, nausea or vomiting. MUSCULOSKELETAL: Denies myalgias. NEUROLOGIC: Denies numbness, tingling, headacbe or weakness. ENDOCRINE: Denies fatigue, weight change, polydipsia or polyurina. GENITOURINARY: Denies burning, hematuria or urgency with micturation. HEMATOLOGIC: Denies history of anemia or bleeding. PHYSICAL EXAMINATION Blood pressure 147/88, heart 69, afebrile, saturations 97% on room air CONSTITUTIONAL: No apparent distress. HEENT: Head is normocephalic. Pupils are equal, round. Sclerae anicteric. Mucous membranes of the mouth are moist. No JVD. No carotid bruit. CHEST EXAMINATION: Lungs are clear to auscultation. No chest wall tenderness is noted on palpation or with deep breathing. HEART EXAMINATION: Regular rate and rhythm. S1, S2 heard. No murmurs, gallops or rub. ABDOMEN: Soft, nontender. Positive bowel sounds. EXTREMITIES: 2+ peripheral pulses, no lower extremity edema and no calf tenderness. NEUROLOGIC EXAMINATION: Patient is awake, alert and oriented x3. ASSESSMENT Subdural Hematoma Right arm weakness Hypertension Hyperlipidmea History of hypothyroidism History of meningioma PLAN We do not recommend VINCENT at this time Recommend blood pressure control Continue amlodipine, statin and lisinopril, may increase lisinopril if needed Neurology consulted Follow up with Dr. Alcocer Further recommendations based on clinical course Nurse Practitioner note has been reviewed, I agree with a documented findings and plan of care. Patient was seen and examined. Past Medical History Past Medical History: Fibromyalgia, GERD/Reflux, Hyperlipidemia, Hypertension, Thyroid Disorder Additional Past Medical History / Comment(s): HAS MENINGIOMA-BEING WATCHED, brain bleed History of Any Multi-Drug Resistant Organisms: None Reported Past Surgical History: Breast Surgery, Orthopedic Surgery Additional Past Surgical History / Comment(s): thyroidectomy; left breast biopsy benign; right breast biopsy x2 benign; COLONOSCOPY; LT SHOULDER SX; BILAT KNEE SX; Past Anesthesia/Blood Transfusion Reactions: No Reported Reaction Past Psychological History: No Psychological Hx Reported Smoking Status: Never smoker Past Alcohol Use History: Occasional Past Drug Use History: None Reported - Past Family History Sister(s) Family Medical History: Cancer Medications and Allergies Home Medications Medication Instructions Recorded Confirmed Type Omeprazole Magnesium [PriLOSEC OTC] 20 mg PO DAILY PRN 11/22/21 11/27/21 History amLODIPine [Norvasc] 10 mg PO DAILY 11/22/21 11/27/21 History Atorvastatin Calcium [Lipitor] 10 mg PO HS 11/27/21 11/27/21 History Calcium Carbonate [Calcium] 600 mg PO DAILY 11/27/21 11/27/21 History Cholecalciferol [Vitamin D3 (25 25 mcg PO DAILY 11/27/21 11/27/21 History Mcg = 1000 Iu)] HYDROcodone/APAP 5-325MG [[place] 1 tab PO Q6HR PRN 11/27/21 11/27/21 History 5-325] Ibuprofen [Motrin] 800 mg PO Q8H PRN 11/27/21 11/27/21 History Levothyroxine Sodium 125 mcg PO DAILY 11/27/21 11/27/21 History Lisinopril [Prinivil] 10 mg PO DAILY 11/27/21 11/27/21 History predniSONE [Deltasone] 40 mg PO DAILY 11/27/21 11/27/21 History Allergies Allergy/AdvReac Type Severity Reaction Status Date / Time No Known Allergies Allergy Verified 11/27/21 16:15 Physical Exam Vitals: Vital Signs Temp Pulse Resp BP Pulse Ox 11/28/21 07:28 74 18 140/80 96 11/28/21 02:00 98.4 F 72 20 158/90 95 11/28/21 00:00 98.3 F 71 16 123/59 97 11/27/21 21:24 75 16 161/87 11/27/21 20:14 97.9 F 66 16 161/87 92 L 11/27/21 12:57 98.4 F 80 20 154/89 94 L Results 11/27/21 14:29 11/27/21 14:29 Cardiac Enzymes 11/27/21 11/27/21 Range/Units 14:29 14:29 AST 34 (14-36) U/L Troponin I <0.012 (0.000-0.034) ng/mL Coagulation 11/27/21 Range/Units 14:29 PT 9.6 (9.0-12.0) sec APTT 22.1 (22.0-30.0) sec CBC 11/27/21 Range/Units 14:29 WBC 9.7 (3.8-10.6) k/uL RBC 4.77 (3.80-5.40) m/uL Hgb 14.3 (11.4-16.0) gm/dL Hct 43.6 (34.0-46.0) % Plt Count 365 (150-450) k/uL Comprehensive Metabolic Panel 11/27/21 Range/Units 14:29 Sodium 139 (137-145) mmol/L Potassium 4.4 (3.5-5.1) mmol/L Chloride 102 (98-107) mmol/L Carbon Dioxide 26 (22-30) mmol/L BUN 21 H (7-17) mg/dL Creatinine 0.56 (0.52-1.04) mg/dL Glucose 105 H (74-99) mg/dL Calcium 8.5 (8.4-10.2) mg/dL AST 34 (14-36) U/L ALT 33 (4-34) U/L Alkaline Phosphatase 99 (38-126) U/L Total Protein 7.9 (6.3-8.2) g/dL Albumin 4.5 (3.5-5.0) g/dL Current Medications Generic Name Dose Route Start Last Admin Trade Name Freq PRN Reason Stop Dose Admin Acetaminophen 650 mg 11/27/21 20:51 Acetaminophen Tab 325 Mg Tab PO Q6HR PRN Mild Pain or Fever > 100.5 Hydrocodone Bitart/Acetaminophen 1 each 11/27/21 20:53 11/28/21 07:25 Hydrocodone/Apap 5-325mg 1 Each Tab PO 1 each Q6HR PRN Administration Pain Alprazolam 0.25 mg 11/27/21 20:51 Alprazolam 0.25 Mg Tab PO Q6HR PRN Anxiety Amlodipine Besylate 10 mg 11/28/21 09:00 Amlodipine 10 Mg Tab PO DAILY [facility] Atorvastatin Calcium 10 mg 11/27/21 21:00 11/27/21 21:23 Atorvastatin 10 Mg Tab PO 10 mg HS [facility] Administration Calcium Carbonate/Glycine 1,000 mg 11/27/21 20:51 Calcium Carbonate 500 Mg Chewable PO Q4HR PRN Dyspepsia Cholecalciferol 25 mcg 11/28/21 09:00 Cholecalciferol 25 Mcg (1000 Iu) Tablet PO DAILY [facility] Lactulose 20 gm 11/27/21 20:51 Lactulose 20 Gm/30 Ml Cup PO DAILY PRN Constipation Levothyroxine Sodium 125 mcg 11/28/21 06:30 11/28/21 07:26 Levothyroxine 125 Mcg Tab PO 125 mcg DAILY@0630 [facility] Administration Lisinopril 10 mg 11/27/21 21:00 11/27/21 21:24 Lisinopril 10 Mg Tab PO 10 mg HS JOSE ALBERTO Administration Melatonin 3 mg 11/27/21 20:51 Melatonin 3 Mg Tablet PO HS PRN Insomnia Naloxone HCl 0.2 mg 11/27/21 20:51 Naloxone 0.4 Mg/Ml 1 Ml Vial IV Q2M PRN Opioid Reversal Ondansetron HCl 4 mg 11/27/21 20:51 Ondansetron 4 Mg/2 Ml Vial IVP Q8HR PRN Nausea And Vomiting Pantoprazole Sodium 40 mg 11/27/21 20:53 Pantoprazole 40 Mg Tablet PO DAILY PRN ACID REFLUX Prednisone 40 mg 11/28/21 09:00 Prednisone 20 Mg Tab PO DAILY [facility] 11/27/21 14:29 11/27/21 14:29
[2021-11-28] MEDS: amLODIPine 10 MG TAB PO SCH (11:05)
[2021-11-28] MEDS: CHOLECALCIFEROL 25 MCG (1000 IU) TABLET PO SCH (11:06)
[2021-11-28] MEDS: ACETAMINOPHEN TAB 325 MG TAB PO PRN ×2 (11:25→18:37)
[2021-11-28] MEDS: predniSONE 20 MG TAB PO SCH (11:25)
--- NOTE | 2021-11-28 13:22 | P.CNNES ---
History of Present Illness Consult date: 11/28/21 Requesting physician: Reinaldo Ruff Reason for Consult: TIA, subdural History of Present Illness: Patient is a 76-year-old female, who was recently diagnosed with small left- sided subdural hematoma on 11/22/2021, transferred to [facility] where she stayed for 4 days, treated conservatively, and then discharged home the day prior to arrival to this hospital yesterday at 12:22 PM. Patient states that after she was discharged, she came home, and was taking shower, when she was washing her hair and suddenly her right arm fell down, like a weight. She felt it like "a stone". She had no control over it. She continued to wiggle her fingers, kept on exercising and eventually the symptoms resolved within half an hour. This morning, which is yesterday, she was sitting, leaning her arm on the coffee table, when the right arm again became numb and tingly. It did not become weak like before, but it lasted for about couple minutes and the symptoms resolved. She got concerned therefore came to the hospital. Patient denied any slurred speech, facial droop or problem the vision at that time. However since in the hospital, she is seeing some squiggly things in her vision, pain in the left eye and in the left jaw region. Vital signs on arrival blood pressure 154/89, pulse rate 80, temperature 98.4. Blood test shows normal CBC PT/PTT, normal Chem-7, hepatic panel troponin. Garcia virus PCR negative. Patient does have history of hyperlipidemia as per lipid panel from 12/02/2015 with cholesterol 244, LDL [address] head revealed small left sided subdural hematoma persists although is smaller in size. Thickness component is seen mid to posterior left parietal region measuring 4.9 mm. There appears to be interhemispheric component. CTA of head and neck showed no evidence of dissection of the cervical internal carotid arteries or vertebral arteries or any evidence of significant stenosis at the carotid bifurcation. No evidence of high-grade stenosis or intracranial aneurysm. EKG shows normal sinus rhythm. T-wave abnormality, consider lateral ischemia. MRI of the brain from 09/08/2020 showed right-sided posterior falx meningioma measuring 3 cm in maximal dimension and now measures 3.3 cm. Home medications include omeprazole, amlodipine 10 mg, hydrocodone, Lipitor 10 mg, prednisone 40 mg daily, lisinopril 10 mg, vitamin D, levothyroxine, ibup rofen and calcium. Patient does not take any hormone replacement therapy. Patient states that actually on 11/22/2021 she was outside taking out her Lucia lights, and the next thing she recalls is waking up laying in the couch with her coat and shoes on. She had peed or herself, but there was no tongue bite. She had no recollection when she got inside of her home, or if she had suffered from a fall or not. She came to ER, where she was diagnosed with subdural hematoma, transferred to [facility]. Patient underwent a 2-D echo, computed tomography scan and EEG. Patient was discharged on no antiepileptic medication. She did not require any surgical treatment of the subdural hematoma. It has improved prior to discharge. Patient was not taking any blood thinners on a regular basis, although she was having some sinus issues around that time and she believes that she was taking some aspirin and Na[place] for sinus issues. At present patient complains of pain in her left lateral eye region, left denominational and down the neck. Patient states that she is noticing some word finding difficulty, as she could not remember name of her doctor although it came later on. She has some problem with little thoughts and expression and naming. Patient states that about 5 years ago she was diagnosed with a concussion. She was outside, straightening the garden flag, and the next thing she recalls is finding herself laying behind the when. She woke up fairly good distance from the [place] flag which she was working on. She came to the hospital, diagnosed with a cerebral meningioma. She was seen by neurosurgeon who has been watching the meningioma, as it has not grown in size, she has not undergone any surgical removal of the meningioma. Patient is a nonsmoker, drinks a glass of wine once in a while. Review of Systems As above in detail. Patient states that she has been feeling tired, fatigued even before she got her sinus issues as mentioned in HPI. She had history of cataract surgery couple years ago. She then required laser treatment for it. Lately she is noticing some squiggly lines in her vision. Patient denies any fever or chills. Patient complaining of some double vision at times. No loss of vision. Denies any slurred speech, facial droop, or any problems with the legs. Patient denies any slurred speech or facial droop. Denies any symptoms in the lower extreme disease. Past Medical History Past Medical History: Fibromyalgia, GERD/Reflux, Hyperlipidemia, Hypertension, Thyroid Disorder Additional Past Medical History / Comment(s): HAS MENINGIOMA-BEING WATCHED, brain bleed History of Any Multi-Drug Resistant Organisms: None Reported Past Surgical History: Breast Surgery, Orthopedic Surgery Additional Past Surgical History / Comment(s): thyroidectomy; left breast biopsy benign; right breast biopsy x2 benign; COLONOSCOPY; LT SHOULDER SX; BILAT KNEE SX; Past Anesthesia/Blood Transfusion Reactions: No Reported Reaction Past Psychological History: No Psychological Hx Reported Smoking Status: Never smoker Past Alcohol Use History: Occasional Past Drug Use History: None Reported - Past Family History Sister(s) Family Medical History: Cancer Medications and Allergies Home Medications Medication Instructions Recorded Confirmed Type Omeprazole Magnesium [PriLOSEC OTC] 20 mg PO DAILY PRN 11/22/21 11/27/21 History amLODIPine [Norvasc] 10 mg PO DAILY 11/22/21 11/27/21 History Atorvastatin Calcium [Lipitor] 10 mg PO HS 11/27/21 11/27/21 History Calcium Carbonate [Calcium] 600 mg PO DAILY 11/27/21 11/27/21 History Cholecalciferol [Vitamin D3 (25 25 mcg PO DAILY 11/27/21 11/27/21 History Mcg = 1000 Iu)] HYDROcodone/APAP 5-325MG [[place] 1 tab PO Q6HR PRN 11/27/21 11/27/21 History 5-325] Ibuprofen [Motrin] 800 mg PO Q8H PRN 11/27/21 11/27/21 History Levothyroxine Sodium 125 mcg PO DAILY 11/27/21 11/27/21 History Lisinopril [Prinivil] 10 mg PO DAILY 11/27/21 11/27/21 History predniSONE [Deltasone] 40 mg PO DAILY 11/27/21 11/27/21 History Allergies Allergy/AdvReac Type Severity Reaction Status Date / Time No Known Allergies Allergy Verified 11/27/21 16:15 Physical Examination - Vital Signs Vital Signs: Vital Signs Temp Pulse Resp BP Pulse Ox 11/28/21 07:28 74 18 140/80 96 11/28/21 02:00 98.4 F 72 20 158/90 95 11/28/21 00:00 98.3 F 71 16 123/59 97 11/27/21 21:24 75 16 161/87 11/27/21 20:14 97.9 F 66 16 161/87 92 L 11/27/21 12:57 98.4 F 80 20 154/89 94 L Patient is an elderly female, very pleasant, in no acute distress. Patient is alert awake oriented to time place and person. Patient knows it is 11/28/2021 and that she is in [facility]. Knows name of the current president. No aphasia or dysarthria. Speech and language functions are normal. Attention, concentration and fund of knowledge is adequate. Patient does have some difficulty with recalling sequence of events and the dates when those happened (as an example, could not tell when she was discharged home from [facility] or when she was admitted there.) On cranial examination, pupils are equal, round and reacting to light, visual fofana are full on confrontation, with no neglect on double simultaneous stimulation. Her extraocular muscles are intact with no nystagmus. Face is symmetric, tongue protrudes to the midline. Palatal elevation and sensation normal, hearing and shoulder shrug normal, facial sensation normal. Shoulder shrug normal. On muscle strength testing, there is no mild right upward pronation however the strength is normal in arms and legs distally and proximally. Deep tendon reflexes are 1 in the upper and lower limbs and plantars downgoing bilaterally. Sensory to touch is equal with no neglect on double simultaneous stimulation. Cerebellar function showed no ataxia for [id number], or tfrg-wh-ykzb vishal ting. No dysdiadochokinesia. Rapid finger tapping is equal. Tone and bulk of muscles normal. Gait deferred. On general examination, there is no carotid bruit or murmur, S1-S2 audible. Abdomen is soft nontender, no organomegaly. Bowel sounds present. Chest is clear. Peripheral pulses are present. No edema. Results - Laboratory Findings CBC and BMP: 11/27/21 14:29 11/27/21 14:29 Abnormal Lab Findings: Abnormal Labs 11/27/21 11/27/21 14:29 14:29 Neutrophils # 8.1 H BUN 21 H Glucose 105 H Assessment and Plan Assessment: * Recurrent (2) episodes of right arm weakness, rule out TIA. * Subdural hematoma, left temporal region, diagnosed 11/22/2021. * History of syncopal spells, with loss of memory for the spells. Rule out part ial seizures. * History of Cerebral meningioma, stable for the last 5 years. Plan: * Patient will undergo MRI of the brain to evaluate for any acute stroke, follow-up on the subdural hematoma, and the cerebral meningioma. * No antiplatelets or anticoagulants at this time. * Recommend SCDs for DVT prophylaxis. * Patient will undergo EEG to evaluate for any interictal epileptiform activity. Patient probably will be a candidate for long-term antiepileptic medication based upon her previous history of 2 syncopal spells with prolonged amnesia. Suspect those could be seizures. * We will try to obtain medical records from [facility] from recent admission, and 2-D echo results. * CTA of head and neck showed no dissection, stenosis or aneurysm. * Neurology will follow. Thank you for the consult. Time with Patient: Greater than 30
--- NOTE | 2021-11-28 17:25 | MR ---
EXAMINATION TYPE: MR brain wo/w con DATE OF EXAM: 11/28/2021 COMPARISON: 09/08/2020, 11/27/2021 HISTORY: Stroke/ TIA TECHNIQUE: Multiplanar, multisequence images of the brain and brainstem is performed without and with IV contras t, utilizing 7.5 mL intravenous Gadavist . FINDINGS: Left cerebral convexity extra-axial fluid collection seen again and does not appear significantly laureen nged size compared to CT done yesterday. The extradural fluid collection wraps around the left cerebr al hemisphere but predominantly located posteriorly extension into the interhemispheric space. No intraparenchymal diffusion restriction appreciated. Nonspecific relatively unchanged white matter and periventricular T2/FLAIR hyperintense foci. Otherwi se the brain parenchymal signal is within normal limit. No midline shift or mass effect appreciated. The kate-white matter differentiation is preserved. Homogenously enhancing dural based posterior mass measuring 2.2 x 2.9 x 2.2 cm is again seen. No sign ificant change. The ventricular system and cisternal spaces are normal in size and appearance. The brain volume is a ge appropriate Midline structures demonstrate normal morphology. The craniocervical junction appears within normal limits. The dural venous sinuses appear patent. The visualized sinuses are clear and the globes are intact. IMPRESSION: 1. Left extra-axial fluid collection, no significant change in size compared to the CT performed yest erday, likely digital sales representative of subdural hematoma. No midline shift or mass effect. 2. Stable size and appearance of posterior dural based mass, most likely on the basis of meningioma. 3. No significant change to nonspecific T2/FLAIR signal in the white matter periventricular region, m ay be on the basis of chronic microvascular ischemic changes, the differential would include demyelin ating disease though favored to be less likely given the relative stability compared to the prior MRI . Dr. Dupont called the nurse Valerie Damico with above results at 5:15pm. Communication acknowledged.
--- NOTE | 2021-11-28 18:12 | P.PN ---
Progress Note - Text Progress Note Date: 11/28/21 Chief Complaint: Right arm weakness This is a pleasant 76-year-old patient who follows Dr. Sharma. Chronic stable medical conditions include fibromyalgia, GERD, hypertension, hyperlipidemia, hypothyroid, meningioma. Patient is accompanied by her . On November 22, patient presented to our ER with headache for 2 days. She had a throbbing headache behind her eyes 10 out of 10 in severity. She also some neck pain and intermittent dizziness. Computed tomography scan of the brain showed a: New small acute left sided extra-axial hemorrhage may have was some acute component. Involvement over the left frontal parietal lobe superiorly and left parietal lobe inferiorly. Suspect subdural. No midline shift. Patient was then transferred to [facility]. She did undergo a carotid Doppler and 2-D echo. She was discharged yesterday evening. No surgical intervention was done. While patient was hospitalized she still remained a bit unsteady in the legs. And had slight headache that persisted. Last night patient noticed that her right arm was floppy and then power came back . This morning patient is able to comb her hair brush her teeth and then later she noticed that her right arm again became weak. Some numbness in the same. Was not able to lift it above 90. She's also noticed some change in vision today. No change in speech or swallowing. Some headache is still present. ER physician Dr Ruff. called me.. I did ask him to speak to the on-call neurologist Dr. Mojica. November 28: Feels much better this morning. No weakness in the left leg. Right arm feels well. Some change in the vision persist. This morning discussed the care with Dr. Mojica from neurology. VINCENT was canceled per cardiology. Me and Dr. Mojica discussed and we'll review the need for the same after MRI is done. Also discussed Dr. Mojica, he'll be starting the patient on Keppra for seizures. Especially the first presentation there was some memory lapse when she did initially presented. Later this afternoon the speech therapist told me that wh ile she was there patient is having some trouble with dexterity of the right arm especially cutting meat. Also speech became garbled. And then it became normal. Patient went down for MRI later today. Review of systems: Was done for constitutional, cardiovascular, GI, pulmonary. Neurological, relevant finding as above Active Medications Acetaminophen (Acetaminophen Tab 325 Mg Tab) 650 mg PO Q6HR PRN PRN Reason: Mild Pain or Fever > 100.5 Last Admin: 11/28/21 11:25 Dose: 650 mg Documented by: Hydrocodone Bitart/Acetaminophen (Hydrocodone/Apap 5-325mg 1 Each Tab) 1 each PO Q6HR PRN PRN Reason: Pain Last Admin: 11/28/21 07:25 Dose: 1 each Documented by: Alprazolam (Alprazolam 0.25 Mg Tab) 0.25 mg PO Q6HR PRN PRN Reason: Anxiety Amlodipine Besylate (Amlodipine 10 Mg Tab) 10 mg PO DAILY [facility] Last Admin: 11/28/21 11:05 Dose: 10 mg Documented by: Atorvastatin Calcium (Atorvastatin 10 Mg Tab) 10 mg PO HS [facility] Last Admin: 11/27/21 21:23 Dose: 10 mg Documented by: Calcium Carbonate/Glycine (Calcium Carbonate 500 Mg Chewable) 1,000 mg PO Q4HR PRN PRN Reason: Dyspepsia Cholecalciferol (Cholecalciferol 25 Mcg (1000 Iu) Tablet) 25 mcg PO DAILY [facility] Last Admin: 11/28/21 11:06 Dose: 25 mcg Documented by: Lactulose (Lactulose 20 Gm/30 Ml Cup) 20 gm PO DAILY PRN PRN Reason: Constipation Levothyroxine Sodium (Levothyroxine 125 Mcg Tab) 125 mcg PO DAILY@0630 [facility] Last Admin: 11/28/21 07:26 Dose: 125 mcg Documented by: Lisinopril (Lisinopril 10 Mg Tab) 10 mg PO HS [facility] Last Admin: 11/27/21 21:24 Dose: 10 mg Documented by: Melatonin (Melatonin 3 Mg Tablet) 3 mg PO HS PRN PRN Reason: Insomnia Naloxone HCl (Naloxone 0.4 Mg/Ml 1 Ml Vial) 0.2 mg IV Q2M PRN PRN Reason: Opioid Reversal Ondansetron HCl (Ondansetron 4 Mg/2 Ml Vial) 4 mg IVP Q8HR PRN PRN Reason: Nausea And Vomiting Pantoprazole Sodium (Pantoprazole 40 Mg Tablet) 40 mg PO DAILY PRN PRN Reason: ACID REFLUX Prednisone (Prednisone 20 Mg Tab) 40 mg PO DAILY [facility] Last Admin: 11/28/21 11:25 Dose: 40 mg Documented by: Past medical history to include: Fibromyalgia, GERD, hyperlipidemia, hypertension, hypothyroid, meningioma being followed by neurosurgeon. Social history: . . No smoking. Alcohol occasionally. Family history: Cancer Physical examination: VITAL SIGNS: 97.8, 72, 16, 1 35 x 37, 96 to room air GENERAL: Sitting at the edge of the bed, comfortable EYES: Pupils equal. Conjunctiva normal. HEENT: External appearance of nose and ears normal, oral cavity grossly normal. NECK: JVD not raised; masses not palpable. HEART: First and second heart sounds are normal; no edema. LUNGS: Respiratory rate normal; clear to auscultation. ABDOMEN: Soft, nontender, liver spleen not palpable, no masses palpable. PSYCH: Alert and oriented x3; mood and affect slightly anxiousl. MUSCULOSKELETAL:No Clubbing/cyanosis;muscles-grossly intact. Evidence of OA NEUROLOGICAL: [Cranial nerves grossly intact; no facial asymmetry, power and sensation grossly intact. LYMPHATICS: No lymph nodes palpable in the axilla and neck INVESTIGATIONS, reviewed in the clinical context: White count 9.7 hemoglobin 14.3 platelets 365 potassium 4.4 creatinine 0.56 Coronavirus [PCR] called not detected EKG tracing personally reviewed by me-no sinus rhythm. Flipped T waves in lead 1 aVL Computed tomography scan of the brain: Small left-sided subdural hematoma persist although small in size compared to the previous one. Thickness component is seen with the posterior left parietal region measuring 4.9 mm.. There appears to be interhemispheric component posteriorly which extends over the left-sided tentorium unchanged from the prior study. No new hemorrhage. No midline shift. Previous results: Previous computed tomography scan results reviewed/noted Assessment and plan: -Recurrent TIA: This patient presents with right arm weakness that appeared to feel floppy yesterday evening improved and again this afternoon felt the same. Was somewhat better now. She also states that she noticed when she signed the papers for handwriting all of his unsteady when she left the hospital yesterday. It does appear that the hemorrhage in the brain even the smallest over the area of the right arm. Given the fluctuating nature of same and no increase in size, it may be better to just wait and watch. She was evaluated by neurosurgeon of the other facility. Depending on the clinical course further action will be taken. We do not have neurosurgery at our facility. This morning patient has no neuro deficits. Except for some change in vision persist. Later this afternoon had an episode of, garbled speech. Recovered. MRI later today. 2-D echo. -Possible epilepsy from bleed/meningioma. Keppra 500 mg twice a day -Subacute subdural hematoma on the left side -Essential hypertension Amlodipine 10 mg a day, Prinivil 10 mg a day -Hyperlipidemia Lipitor 10 mg daily at bedtime -Hypothyroid Levothyroxine 125 g a day -Primary osteoarthritis multiple joints bilateral Tylenol as needed -Chronic insomnia, idiopathic Melatonin -Chronic urinary stress incontinence MRA of the brain later today. 2-D echo. Start Keppra. Discussion held with the patient and also with Dr. Mojica. Total time spent today about 45 minutes with over 30 minutes of discussion.
--- NOTE | 2021-11-28 19:59 | EEG ---
ELECTROENCEPHALOGRAM REPORT DATE OF SERVICE: 11/28/2021 PREAMBLE: This is a 76-year-old female with possible TIA, rule out seizures. EEG FINDINGS: This is a 21-channel digital EEG recorded with video component, utilizing 10/20 international system with referential and bipolar montages. Background consists of well developed, well regulated, moderate voltage activity in 9 hertz alpha. Background is posterior-dominant and reactive to eye opening and closing. Photic driving response was not seen. Some drowsiness was seen with appearance of bilaterally symmetric theta frequency rhythm. Deeper stages of sleep were not seen. No focal or generalized epileptiform activity was seen. IMPRESSION: This is a normal awake and drowsy EEG. No focal, lateralized or epileptiform activity was seen. Normal EEG does not rule out seizure disorder. If your suspicion for seizure is high, suggest prolonged, sleep-deprived EEG. MMODL / IJN: [id number] /
[2021-11-28] MEDS: ATORVASTATIN 10 MG TAB PO SCH (21:52)
[2021-11-28] MEDS: lisinopriL 10 MG TAB PO SCH (21:52)
[2021-11-28] MEDS: levETIRAcetam 500 MG TAB PO SCH (21:52)
--- NOTE | 2021-11-28 21:57 | CT ---
EXAMINATION TYPE: CT brain wo con DATE OF EXAM: 11/28/2021 COMPARISON: Noncontrast CT of the head dating back to 11/22/2021 and MRI of the brain performed on the same day. HISTORY: h/o brain bleed TECHNIQUE: CT scan of the head performed without contrast CT DLP: 1081.6 mGycm Automated exposure control for dose reduction was used. FINDINGS: A small extra-axial fluid collection is again seen along the left cerebral convexity with predominant ly low-attenuation. There is a focus of increased attenuation measuring about 5 mm in thickness as an notated on this study is not significantly changed in appearance from the prior studies. No midline shift, mass effect or new extra-axial fluid collection or intraparenchymal hemorrhage. The kate-white matter differentiation is preserved. Dural based mass along the vertex posteriorly arising from the falx is not significantly changed and is likely reflective of a meningioma similar to prior studies. The CSF spaces and ventricles are normal in configuration and there is no ventriculomegaly. Paranasal sinuses and mastoid air cells are radiated. No acute orbital osseous or soft tissue abnormalities appreciated. IMPRESSION: SMALL LEFT SUBDURAL HEMATOMA WITH INVOLUTIONAL CHANGES SINCE 11/22/2021 AND NO SIGNIFICANT CHANGE IN A PPEARANCE SINCE 11/27/2021. A FOCAL HYPER ATTENUATING COMPONENT WITHIN THE THE EXTRA-AXIAL FLUID COLLE CTION IS PRESENT AND DOES NOT SIGNIFICANTLY CHANGE IN APPEARANCE SINCE 11/22/2021.
--- NOTE | 2021-11-29 05:27 | P.CONS ---
History of Present Illness - Chief Complaint Gait disturbance, right hemiparesthesias - History of Present Illness I had the opportunity to see patient for inpatient rehab consultation with regard to gait disturbance. Patient admitted [place] [id number] acute onset right-sided weakness and headaches of perhaps 5 days duration. Diagnosed with possible subdural hematoma left temporal. Note recent admission [facility] discharge 4 days earlier in March been hospitalized for Covid pneumonia. At this time seen by cardiology. Seen by neurology Dr. Dailey who notes head CT with left parietal subdural hematoma. Follow-up angiogram CT of head negative as well as carotids negative. His started therapies. PT reports complete independence with bed mobility, transfers, gait. OT reports complete independent with all basic self-care tasks. Speech therapy reports mild cognitive impairment. Previous functional history as elicited from patient: 76-year-old right-handed white female who is and [facility] with . Both are retired. They share the cooking. Both can drive. Patient independent does the laundry, standing shower and gait without device. PCP Dr. Sharma. Denies tobacco or alcohol. Review of Systems Review of systems: ENT: Denies sneezes or discharge. Eyes: Denies discharge or photophobia. Cardiac: Denies chest pain or palpitation. Pulmonary: Denies cough or shortness of breath. Breast: Denies discharge or lumps. Gastrointestinal: Denies nausea, emesis, constipation, diarrhea. Genitourinary: Denies discharge or frequency. Musculoskeletal: Denies muscle or bone aches. Neurologic: Denies motor or sensory change. Does report some right arm and hand weakness yesterday, temporarily. Endocrine: Denies shakes or sweats. Oncology: Denies cancers. Dermatologic: Denies rash, itching, pruritus. ALLERGY/immunology: Denies sneezes, rashes. Past Medical History Past Medical History: Fibromyalgia, GERD/Reflux, Hyperlipidemia, Hypertension, Thyroid Disorder Additional Past Medical History / Comment(s): HAS MENINGIOMA-BEING WATCHED, brain bleed History of Any Multi-Drug Resistant Organisms: None Reported Past Surgical History: Breast Surgery, Orthopedic Surgery Additional Past Surgical History / Comment(s): thyroidectomy; left breast biopsy benign; right breast biopsy x2 benign; COLONOSCOPY; LT SHOULDER SX; BILAT KNEE SX; Past Anesthesia/Blood Transfusion Reactions: No Reported Reaction Past Psychological History: No Psychological Hx Reported Smoking Status: Never smoker Past Alcohol Use History: Occasional Past Drug Use History: None Reported - Past Family History Sister(s) Family Medical History: Cancer Medications and Allergies Home Medications Medication Instructions Recorded Confirmed Type Omeprazole Magnesium [PriLOSEC OTC] 20 mg PO DAILY PRN 11/22/21 11/27/21 History amLODIPine [Norvasc] 10 mg PO DAILY 11/22/21 11/27/21 History Atorvastatin Calcium [Lipitor] 10 mg PO HS 11/27/21 11/27/21 History Calcium Carbonate [Calcium] 600 mg PO DAILY 11/27/21 11/27/21 History Cholecalciferol [Vitamin D3 (25 25 mcg PO DAILY 11/27/21 11/27/21 History Mcg = 1000 Iu)] HYDROcodone/APAP 5-325MG [[place] 1 tab PO Q6HR PRN 11/27/21 11/27/21 History 5-325] Ibuprofen [Motrin] 800 mg PO Q8H PRN 11/27/21 11/27/21 History Levothyroxine Sodium 125 mcg PO DAILY 11/27/21 11/27/21 History Lisinopril [Prinivil] 10 mg PO DAILY 11/27/21 11/27/21 History predniSONE [Deltasone] 40 mg PO DAILY 11/27/21 11/27/21 History Allergies Allergy/AdvReac Type Severity Reaction Status Date / Time No Known Allergies Allergy Verified 11/27/21 16:15 Physical Exam Vitals: Vital Signs Temp Pulse Pulse Resp BP BP Pulse Ox 11/29/21 01:50 97.7 F 61 16 138/83 95 11/28/21 19:00 97.5 F L 75 16 122/78 98 11/28/21 15:00 97.8 F 72 16 135/77 96 11/28/21 12:34 98.3 F 65 16 129/76 96 11/28/21 09:04 98.0 F 69 16 147/88 97 11/28/21 07:28 74 18 140/80 96 Intake and Output 11/28/21 11/28/21 11/29/21 14:59 22:59 06:59 Intake Total 240 118 Balance 240 118 Intake: Oral 240 118 Other: # Voids 2 2 Skin: Atrophic, intact. General: Medium build and comfortable appearance. Head: Normocephalic, atraumatic. Eyes: Symmetric. Pupils equal round. Ears: Symmetric. Hearing within normal limits. Mouth: Clear. Neck: Supple. Carotid without bruit. Cardiac: Regular rate and rhythm. Lungs: Clear anteriorly and posteriorly. Abdomen: Soft active nontender. Extremities: Normal tone. Neurological: Mental status: Alert, cooperative, pleasant. Cranial nerves: Symmetric facial tone and trapezius. Motor: Normal strength and isolation all 4 limbs. No focal deficits identified at this time. Sensation: Intact throughout. DTRs: Symmetric and equal throughout. Mobility: Patient reports independent in room including to bathroom. Results CBC & Chem 7: 11/27/21 14:29 11/27/21 14:29 Labs: Abnormal Lab Results - Last 24 Hours (Table) 11/27/21 Range/Units 14:02 Triglycerides 207.00 H (0.00-149.00) mg/dL Cholesterol 234.00 H (0.00-200.00) mg/dL LDL Cholesterol, Calc 131.4 H (0.0-131.0) mg/dL VLDL Cholesterol, Calc 41.40 H (5.00-40.00) mg/dL HDL Cholesterol 61.20 H (40.00-60.00) mg/dL Assessment and Plan (1) Subdural hematoma Current Visit: Yes Status: Acute Code(s): S06.5X9A - TRAUM SUBDR HEM W LOC OF UNSP DURATION, INIT SNOMED Code(s): 643944477 (2) Transient cerebral ischemia Current Visit: Yes Status: Acute Code(s): G45.9 - TRANSIENT CEREBRAL ISCHEMIC ATTACK, UNSPECIFIED SNOMED Code(s): 567573093 Plan: Comments: At this time patient's problem appears to be impermanent or in fact a TIA. Patient is doing well, in fact to well to meet insurance criteria for inpatient rehab. Functioning, the patient is ready for return to home. Just advised against driving currently and reasons discussed.
[2021-11-29] MEDS: LEVOTHYROXINE 125 MCG TAB PO SCH (07:22)
[2021-11-29] MEDS: ACETAMINOPHEN TAB 325 MG TAB PO PRN ×2 (07:35→15:35)
[2021-11-29] MEDS: CHOLECALCIFEROL 25 MCG (1000 IU) TABLET PO SCH (07:36)
[2021-11-29] MEDS: predniSONE 20 MG TAB PO SCH (07:36)
[2021-11-29] MEDS: levETIRAcetam 500 MG TAB PO SCH (07:37)
[2021-11-29] MEDS: amLODIPine 10 MG TAB PO SCH (07:38)
[2021-11-29] MEDS ORDERED: levETIRAcetam 250 MG TAB PO SCH (16:00)
[2021-11-29] MEDS: CALCIUM CARBONATE 500 MG CHEWABLE PO PRN ×2 (16:12→20:40)
[2021-11-29] MEDS: lisinopriL 10 MG TAB PO SCH (20:40)
[2021-11-29] MEDS: ATORVASTATIN 10 MG TAB PO SCH (20:40)
--- NOTE | 2021-11-29 20:50 | P.PN ---
Progress Note - Text Progress Note Date: 11/29/21 Chief Complaint: Right arm weakness This is a pleasant 76-year-old patient who follows Dr. Sharma. Chronic stable medical conditions include fibromyalgia, GERD, hypertension, hyperlipidemia, hypothyroid, meningioma. Patient is accompanied by her . On November 22, patient presented to our ER with headache for 2 days. She had a throbbing headache behind her eyes 10 out of 10 in severity. She also some neck pain and intermittent dizziness. Computed tomography scan of the brain showed a: New small acute left sided extra-axial hemorrhage may have was some acute component. Involvement over the left frontal parietal lobe superiorly and left parietal lobe inferiorly. Suspect subdural. No midline shift. Patient was then transferred to [facility]. She did undergo a carotid Doppler and 2-D echo. She was discharged yesterday evening. No surgical intervention was done. While patient was hospitalized she still remained a bit unsteady in the legs. And had slight headache that persisted. Last night patient noticed that her right arm was floppy and then power came back . This morning patient is able to comb her hair brush her teeth and then later she noticed that her right arm again became weak. Some numbness in the same. Was not able to lift it above 90. She's also noticed some change in vision today. No change in speech or swallowing. Some headache is still present. ER physician Dr Ruff. called me.. I did ask him to speak to the on-call neurologist Dr. Mojica. November 28: Feels much better this morning. No weakness in the left leg. Right arm feels well. Some change in the vision persist. This morning discussed the care with Dr. Mojica from neurology. VINCENT was canceled per cardiology. Me and Dr. Mojica discussed and we'll review the need for the same after MRI is done. Also discussed Dr. Mojica, he'll be starting the patient on Keppra for seizures. Especially the first presentation there was some memory lapse when she did initially presented. Later this afternoon the speech therapist told me that wh ile she was there patient is having some trouble with dexterity of the right arm especially cutting meat. Also speech became garbled. And then it became normal. Patient went down for MRI later today. November 29: Patient continues to have intermittent episodes of loss of speech, right arm weakness and decreased extremity. Some intermittent trouble with cognition. Care was discussed at length with Dr. Mojica from neurology. This could be a manifestation of seizures. Dose of Keppra being increased to 750 mg twice daily starting today. Prolonged EEG will be done tomorrow. Really does not wish to be offered from a surgical standpoint at this point at least. Dr. Mojica did reviewed the computed tomography scan from the [facility]. Review of systems: Was done for constitutional, cardiovascular, GI, pulmonary. Neurological, relevant finding as above Active Medications Acetaminophen (Acetaminophen Tab 325 Mg Tab) 650 mg PO Q6HR PRN PRN Reason: Mild Pain or Fever > 100.5 Last Admin: 11/29/21 15:35 Dose: 650 mg Documented by: Hydrocodone Bitart/Acetaminophen (Hydrocodone/Apap 5-325mg 1 Each Tab) 1 each PO Q6HR PRN PRN Reason: Pain Last Admin: 11/28/21 21:57 Dose: 1 each Documented by: Alprazolam (Alprazolam 0.25 Mg Tab) 0.25 mg PO Q6HR PRN PRN Reason: Anxiety Amlodipine Besylate (Amlodipine 10 Mg Tab) 10 mg PO DAILY [facility] Last Admin: 11/29/21 07:38 Dose: 10 mg Documented by: Atorvastatin Calcium (Atorvastatin 10 Mg Tab) 10 mg PO HS [facility] Last Admin: 11/29/21 20:40 Dose: 10 mg Documented by: Calcium Carbonate/Glycine (Calcium Carbonate 500 Mg Chewable) 1,000 mg PO Q4HR PRN PRN Reason: Dyspepsia Last Admin: 11/29/21 20:40 Dose: 1,000 mg Documented by: Cholecalciferol (Cholecalciferol 25 Mcg (1000 Iu) Tablet) 25 mcg PO DAILY [facility] Last Admin: 11/29/21 07:36 Dose: 25 mcg Documented by: Lactulose (Lactulose 20 Gm/30 Ml Cup) 20 gm PO DAILY PRN PRN Reason: Constipation Levetiracetam (Levetiracetam 750 Mg Tab) 750 mg PO Q12HR [facility] Last Admin: 11/29/21 20:40 Dose: 750 mg Documented by: Levothyroxine Sodium (Levothyroxine 125 Mcg Tab) 125 mcg PO DAILY@0630 [facility] Last Admin: 11/29/21 07:22 Dose: 125 mcg Documented by: Lisinopril (Lisinopril 10 Mg Tab) 10 mg PO HS [facility] Last Admin: 11/29/21 20:40 Dose: 10 mg Documented by: Melatonin (Melatonin 3 Mg Tablet) 3 mg PO HS PRN PRN Reason: Insomnia Naloxone HCl (Naloxone 0.4 Mg/Ml 1 Ml Vial) 0.2 mg IV Q2M PRN PRN Reason: Opioid Reversal Ondansetron HCl (Ondansetron 4 Mg/2 Ml Vial) 4 mg IVP Q8HR PRN PRN Reason: Nausea And Vomiting Pantoprazole Sodium (Pantoprazole 40 Mg Tablet) 40 mg PO DAILY PRN PRN Reason: ACID REFLUX Prednisone (Prednisone 20 Mg Tab) 40 mg PO DAILY [facility] Last Admin: 11/29/21 07:36 Dose: 40 mg Documented by: Past medical history to include: Fibromyalgia, GERD, hyperlipidemia, hypertension, hypothyroid, meningioma being followed by neurosurgeon. Social history: . . No smoking. Alcohol occasionally. Family history: Cancer Physical examination: VITAL SIGNS: 97.6, 76, 16, 120/70, 95% room air GENERAL: Laying in bed, awake, tired EYES: Pupils equal. Conjunctiva normal. HEENT: External appearance of nose and ears normal, oral cavity grossly normal. NECK: JVD not raised; masses not palpable. HEART: First and second heart sounds are normal; no edema. LUNGS: Respiratory rate normal; clear to auscultation. ABDOMEN: Soft, nontender, liver spleen not palpable, no masses palpable. PSYCH: Alert and oriented x3; mood and affect slightly anxiousl. MUSCULOSKELETAL:No Clubbing/cyanosis;muscles-grossly intact. Evidence of OA NEUROLOGICAL: Increase blinking of the eyes. Noted earlier had changes in his speech. Recovered. Decreased dexterity in the right arm. LYMPHATICS: No lymph nodes palpable in the axilla and neck INVESTIGATIONS, reviewed in the clinical context: White count 9.7 hemoglobin 14.3 platelets 365 potassium 4.4 creatinine 0.56 EEG [November 28]: Unremarkable LDL 131 Coronavirus [PCR] called not detected EKG tracing personally reviewed by me-no sinus rhythm. Flipped T waves in lead 1 aVL Computed tomography scan of the brain: Small left-sided subdural hematoma p ersist although small in size compared to the previous one. Thickness component is seen with the posterior left parietal region measuring 4.9 mm.. There appears to be interhemispheric component posteriorly which extends over the left-sided tentorium unchanged from the prior study. No new hemorrhage. No midline shift. Previous results: Previous computed tomography scan results reviewed/noted Assessment and plan: -Recurrent TIA: This patient presents with right arm weakness that appeared to feel floppy yesterday evening improved and again this afternoon felt the same. Was somewhat better now. She also states that she noticed when she signed the papers for handwriting all of his unsteady when she left the hospital yesterday. It does appear that the hemorrhage in the brain even the smallest over the area of the right arm. Given the fluctuating nature of same and no increase in size, it may be better to just wait and watch. She was evaluated by neurosurgeon of the other facility. Depending on the clinical course further action will be taken. We do not have neurosurgery at our facility. This morning patient has no neuro deficits. Except for some change in vision persist. Later this afternoon had an episode of, garbled speech. Recovered. At this point it is felt this could be recurrent seizures. Does of Keppra increased. 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 Increase Keppra 750 mg twice a day. Prolonged EEG tomorrow. -Subacute subdural hematoma on the left side -Essential hypertension Amlodipine 10 mg a day, Prinivil 10 mg a day -Hyperlipidemia Increase Lipitor 20 mg daily at bedtime -Hypothyroid Levothyroxine 125 g a day -Primary osteoarthritis multiple joints bilateral Tylenol as needed -Chronic insomnia, idiopathic Melatonin -Chronic urinary stress incontinence Lengthy discussion with Dr. Mojica. Keppra increased to 750 mg twice a day. Prolonged EEG tomorrow. Discussed with the patient. Total time spent about 45 minutes with over 30 minutes of discussion. Seizure precautions. Increase Lipitor to 20 mg daily at bedtime
[2021-11-29] MEDS ORDERED: ATORVASTATIN 10 MG TAB PO ONE (21:00)
[2021-11-29] MEDS ORDERED: ATORVASTATIN 20 MG TAB PO SCH (21:00)
[2021-11-29] MEDS: HYDROcodone/APAP 5-325MG 1 EACH TAB PO PRN (21:04)
--- NOTE | 2021-11-30 00:44 | P.PN ---
Subjective Progress Note Date: 11/29/21 Patient was seen for a follow-up. Patient states that she had an episode of numbness of the right arm at around 8:30 AM, that lasted for about 5-10 minutes. It did not affect her speech. The episode was not as bad. We also received medical records from outside hospital CT head without contrast from 11/23/2021 showed no significant interval change in size or appearance of the subdural hematoma collecting over the left parietal lobe and along the left side of the midline cerebral falx measuring up to 6 mm in thickness. No new bleeds identified. No midline shift or herniation. Patient had an 18 hour prolonged EEG on 11/23/2021 that was started at 1:47 PM, which was continued until 11/24/2021 at 8:35 AM. Video was recorded throughout the study. It is an abnormal EEG with findings indicative of a mild degree of encephalopathy as well as of a structural lesion in the region of the left temporal lobe. The additional presence of FIRDA has the following differential diagnosis, depending on the clinical context: As a pattern of encephalopathy nonspecific as to etiology, deep-seated midline lesions or intermittently raised intracranial pressure. Patient had a routine EEG on 11/24/2021 which was technically suboptimal. When discernible, mild encephalopathy is noted. Neurology saw the patient, and recommended no indication for antiepileptic medication. Patient's Covid-19 was positive in that admissions. Objective - Vital Signs Vital signs: Vital Signs Temp 98.6 F 11/29/21 07:25 Pulse 75 11/29/21 07:25 Resp 16 11/29/21 07:25 BP 145/87 11/29/21 07:25 Pulse Ox 95 11/29/21 07:25 Intake & Output 11/28/21 11/29/21 11/29/21 18:59 06:59 18:59 Intake Total 358 120 Balance 358 120 Intake: Oral 358 120 Other: # Voids 2 2 1 # Bowel Movements 1 - Exam Patient is alert and awake. Speech and language functions are normal. Cranial nerves are normal. Muscle strength equal. - Labs CBC & Chem 7: 11/27/21 14:29 11/27/21 14:29 Assessment and Plan Assessment: * Recurrent (2) transient episodes of right arm weakness, one episode of transient slurred speech, and one transient episode of right arm numbness, ea ch lasting for 5-10 minutes to 30 minutes max. Rule out TIA versus focal seizures. * Subdural hematoma, left temporal region, diagnosed 11/22/2021. * History of syncopal spells (x2), with loss of memory for the spells. Rule out partial seizures. * History of Cerebral meningioma, stable for the last 5 years. Plan: * MRI of the brain with and without contrast performed 11/28/2021 revealed left extra-axial fluid collection, no significant change in size compared to the CT performed 11/27/2021, likely agency sales representative of subdural hematoma. No midline shift or mass effect. There is a small component of subarachnoid hemorrhage in the left parietal region. Stable in size and appearance of the posterior dural based mass, most likely a meningioma. * Repeat computed tomography scan of head this morning showed no change. No subarachnoid hemorrhage. * We will increase Keppra to 750 mg twice a day. Discussed with Dr. Staley in detail. * No antiplatelets or anticoagulants at this time. * Recommend SCDs for DVT prophylaxis. * Routine EEG performed on 11/28/2021 was normal. Patient will undergo prolonged, 2.5 hour EEG in the morning. * 2-D echo with bubble study, rule out PFO. * CTA of head and neck showed no dissection, stenosis or aneurysm.
[2021-11-30] MEDS: ACETAMINOPHEN TAB 325 MG TAB PO PRN ×2 (04:14→20:30)
[2021-11-30] MEDS: LEVOTHYROXINE 125 MCG TAB PO SCH (05:53)
[2021-11-30] MEDS: predniSONE 20 MG TAB PO SCH (07:25)
[2021-11-30] MEDS: amLODIPine 10 MG TAB PO SCH (07:26)
[2021-11-30] MEDS: CHOLECALCIFEROL 25 MCG (1000 IU) TABLET PO SCH (07:27)
--- NOTE | 2021-11-30 11:56 | ECHOF ---
Referral Reason:Recurrent TIA MEASUREMENTS -------- HEIGHT: 170.2 cm WEIGHT: 79.4 kg BP: IVSd: 1.3 cm (0.6 - 1.1) LVIDd: 5.1 cm (3.9 - 5.3) LVPWd: 1.2 cm (0.6 - 1.1) EDV(Teich): 127 ml IVSs: 1.8 cm LVIDs: 4.2 cm LVPWs: 1.3 cm %IVS Thck: 36 % ESV(Teich): 77 ml EF(Teich): 39 % %FS: 19 % SV(Teich): 49 ml LA Diam: 4.6 cm (2.7 - 3.8) RVIDd: 3.5 cm (< 3.3) Ao Diam: 3.1 cm (2.0 - 3.7) LA Diam: 4.5 cm (2.7 - 3.8) AV Cusp: 1.6 cm (1.5 - 2.6) MV E Venkata: 0.37 m/s MV DecT: 328 ms MV Dec [place]: 1.1 m/s MV A Venkata: 0.70 m/s MV E/A Ratio: 0.52 MV PHT: 95 ms TR Vmax: 1.84 m/s TR maxP.48 mmHg RAP: 5.00 mmHg RVSP: 18.48 mmHg FINDINGS -------- Sinus rhythm. This was a technically adequate study. LV size, wall thickness and systolic function are normal, with an EF greater than 55%. The left tiffanie tricular size is normal. The right ventricle is mild to moderately enlarged. The left atrium is mildly dilated. The right atrial size is normal. Contrast study was performed with 2 iv injections of 8 ccs of agitated normal saline, at rest, and po st-Valsalva. inconclusive bubble study. There is mild aortic valve sclerosis. There is no evidence of aortic regurgitation. Mild mitral regurgitation is present. Mild tricuspid regurgitation present. Right ventricular systolic pressure is normal at < 35 mmHg. There is no pulmonic regurgitation present. Echo free space represents a pericardial fat pad. CONCLUSIONS -------- 1. LV size, wall thickness and systolic function are normal, with an EF greater than 55%. 2. The left ventricular size is normal. 3. The right ventricle is mild to moderately enlarged. 4. The left atrium is mildly dilated. 5. The right atrial size is normal. 6. Contrast study was performed with 2 iv injections of 8 ccs of agitated normal saline, at rest, and post-Valsalva 7. inconclusive bubble study. 8. There is mild aortic valve sclerosis. 9. Mild mitral regurgitation is present. 10. Mild tricuspid regurgitation present. 11. Echo free space represents a pericardial fat pad. PROPERTY DEVELOPER: Reyna Loza RDCS
[2021-11-30] MEDS: HYDROcodone/APAP 5-325MG 1 EACH TAB PO PRN (11:57)
--- NOTE | 2021-11-30 16:26 | P.PN ---
Subjective This is a pleasant 76-year-old patient who follows Dr. Sharma. Chronic stable medical conditions include fibromyalgia, GERD, hypertension, hyperlipidemia, hypothyroid, meningioma. Patient is accompanied by her . On November 22, patient presented to our ER with headache for 2 days. She had a throbbing headache behind her eyes 10 out of 10 in severity. She also some neck pain and intermittent dizziness. Computed tomography scan of the brain showed a: New small acute left sided extra-axial hemorrhage may have was some acute component. Involvement over the left frontal parietal lobe superiorly and left parietal lobe inferiorly. S uspect subdural. No midline shift. Patient was then transferred to [facility]. She did undergo a carotid Doppler and 2-D echo. She was discharged yesterday evening. No surgical intervention was done. While patient was hospitalized she still remained a bit unsteady in the legs. A nd had slight headache that persisted. Last night patient noticed that her right arm was floppy and then power came back . This morning patient is able to comb her hair brush her teeth and then later she noticed that her right arm again became weak. Some numbness in the same. Was not able to lift it above 90. She's also noticed some change in vision today. No change in speech or swallowing. Some headache is still present. ER physician Dr Ruff. called me.. I did ask him to speak to the on-call neurologist Dr. Mojica. November 28: Feels much better this morning. No weakness in the left leg. Right arm feels well. Some change in the vision persist. This morning discussed the care with Dr. Mojica from neurology. VINCENT was canceled per cardiology. Me and Dr. Mojica discussed and we'll review the need for the same after MRI is done. Also discussed Dr. Mojica, he'll be starting the patient on Keppra for seizures. Especially the first presentation there was some memory lapse when she did initially presented. Later this afternoon the speech therapist told me that while she was there patient is having some trouble with dexterity of the right arm especially cutting meat. Also speech became garbled. And then it became normal. Patient went down for MRI later today. November 29: Patient continues to have intermittent episodes of loss of speech, right arm weakness and decreased extremity. Some intermittent trouble with cognition. Care was discussed at length with Dr. Mojica from neurology. This could be a manifestation of seizures. Dose of Keppra being increased to 750 mg twice daily starting today. Prolonged EEG will be done tomorrow. Really does not wish to be offered from a surgical standpoint at this point at least. Dr. Mojica did reviewed the computed tomography scan from the [facility]. 11/30/2021 This is a pleasant 76 years old female who had recent bleeding into her brain and [facility], where she was evaluated by surgical team here with no surgical intervention she was management conservatively and discharged back to home, however she started getting numbness and spasm in her right upper extremity that comes and goes so she came back to the hospital. She is hemodynamically stable. She's been evaluated by neurologist will follow her closely. First EEG was negative. She had MRI of the brain on 11/28 showing a subdural hematoma and small left subarachnoid hemorrhage and posterior meningioma. Today patient had prolonged EEG for 3 hours, when she is back she was complaining of from some headache which is [id number] states because lack of sleep. Patient would like to try [place]. No more weakness or numbness in the right upper extremity. No dizziness. No vision changes today. She is not on any anticoagulation like aspirin or heparin because of her bleeding into the brain. Patient continued on Keppra 750 mg twice daily as well as home dose of prednisone 40 mg The result of the new EEG is still pending Objective - Vital Signs Vital signs: Vital Signs Temp 98.3 F 11/30/21 07:18 Pulse 70 11/30/21 07:18 Resp 16 11/30/21 07:18 BP 158/89 11/30/21 07:18 Pulse Ox 95 11/30/21 07:18 Intake & Output 11/29/21 11/30/21 11/30/21 18:59 06:59 18:59 Intake Total 120 620 Balance 120 620 Intake: Oral 120 620 Other: Voiding Method Toilet # Voids 1 2 1 # Bowel Movements 1 - Exam GENERAL: The patient is alert and oriented x3, not in any acute distress. Well developed, well nourished. HEENT: Pupils are round and equally reacting to light. EOMI. No scleral icterus. No conjunctival pallor. Normocephalic, atraumatic. No pharyngeal erythema. No thyromegaly. CARDIOVASCULAR: S1 and S2 present. No murmurs, rubs, or gallops. PULMONARY: Chest is clear to auscultation, no wheezing or crackles. ABDOMEN: Soft, nontender, nondistended, normoactive bowel sounds. No palpable organomegaly. MUSCULOSKELETAL: No joint swelling or deformity. EXTREMITIES: No cyanosis, clubbing, or pedal edema. NEUROLOGICAL: Gross neurological examination did not reveal any focal deficits. SKIN: No rashes. no petechiae. 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 Increase Keppra 750 mg twice a day. Prolonged EEG: Pending -Subacute subdural hematoma on the left side -Essential hypertension Amlodipine 10 mg a day, Prinivil 10 mg a day -Hyperlipidemia Increase Lipitor 20 mg daily at bedtime -Hypothyroid Levothyroxine 125 g a day -Primary osteoarthritis multiple joints bilateral Tylenol as needed -Chronic insomnia, idiopathic Melatonin -Chronic urinary stress incontinence DVT prophylaxis: Mechanical, no anticoagulation for her bleed into the brain GI prophylaxis: Protonix
--- NOTE | 2021-11-30 19:25 | EEG ---
ELECTROENCEPHALOGRAM REPORT DATE OF PROCEDURE: 11/30/2021 ELECTROENCEPHALOGRAM (EEG) REPORT: TECHNIQUE: This is a report from a 2-1/2-hour inpatient digital video EEG performed using the 10/20 electrode placement system. FINDINGS: Recording start time: 11/30/2021 at 0855 hours. Recording end time: 11/30/2021 at 1130 hours. HISTORY: Left-sided subdural hematoma, right-sided weakness, numbness and tingling. Other medical history includes hypertension, hyperlipidemia. CURRENT MEDICATIONS: Tylenol, Xanax, Norvasc, Lipitor, [place], Keppra, Synthroid, Zestril, melatonin, Zofran, Protonix, prednisone. FINDINGS: BACKGROUND: The background activity consisted of 8-9 hertz rhythmic waveforms symmetrically distributed through both posterior quadrants. ACTIVATION: Hyperventilation: Not performed. Photic stimulation: Not performed. Sleep: Stages I and II sleep noted. ABNORMALITIES: 1. Frequent focal left mid temporal greater than left frontal theta range slowing was seen. IMPRESSION: Abnormal 2-1/2-hour EEG. The frequent focal theta range slowing mentioned over the left temporal greater than left frontal region is not epileptiform in nature. These findings indicate mild focal cerebral dysfunction involving the corresponding region. No seizures were recorded. No epileptiform activity was present. MMODL / IJN: [id number] /
[2021-11-30] MEDS: CALCIUM CARBONATE 500 MG CHEWABLE PO PRN (20:30)
[2021-11-30] MEDS: lisinopriL 10 MG TAB PO SCH (20:30)
[2021-11-30] MEDS: ATORVASTATIN 20 MG TAB PO SCH (20:30)
[2021-12-01] MEDS: ACETAMINOPHEN TAB 325 MG TAB PO PRN ×3 (05:34→17:08)
[2021-12-01] MEDS: LEVOTHYROXINE 125 MCG TAB PO SCH (06:17)
[2021-12-01] MEDS: predniSONE 20 MG TAB PO SCH (08:54)
[2021-12-01] MEDS: CHOLECALCIFEROL 25 MCG (1000 IU) TABLET PO SCH (08:55)
[2021-12-01] MEDS: amLODIPine 10 MG TAB PO SCH (08:55)
--- NOTE | 2021-12-01 10:43 | P.PN ---
Subjective Progress Note Date: 11/30/21 Patient was seen for a follow-up. Patient states that she has a lot of pain in the left eye. Last night she had a little bit of event, in which she was having symptoms in the right arm. It did not affect her speech. The symptoms lasted for 15-20 minutes. She feels the medication is helping. We also received medical records from outside hospital CT head without contrast from 11/23/2021 showed no significant interval change in size or appearance of the subdural hematoma collecting over the left parietal lobe and along the left side of the midline cerebral falx measuring up to 6 mm in thickness. No new bleeds identified. No midline shift or herniation. Patient had an 18 hour prolonged EEG on 11/23/2021 that was started at 1:47 PM, which was continued until 11/24/2021 at 8:35 AM. Video was recorded throughout the study. It is an abnormal EEG with findings indicative of a mild degree of encephalopathy as well as of a structural lesion in the region of the left temporal lobe. The additional presence of FIRDA has the following differential diagnosis, depending on the clinical context: As a pattern of encephalopathy nonspecific as to etiology, deep-seated midline lesions or intermittently raised intracranial pressure. Patient had a routine EEG on 11/24/2021 which was technically suboptimal. When discernible, mild encephalopathy is noted. Neurology saw the patient, and recommended no indication for antiepileptic medication. Patient's Covid-19 was positive in that admissions. Objective - Vital Signs Vital signs: Vital Signs Temp 97.7 F 11/30/21 14:00 Pulse 71 11/30/21 14:00 Resp 16 11/30/21 14:00 BP 144/74 11/30/21 14:00 Pulse Ox 94 L 11/30/21 14:00 Intake & Output 11/29/21 11/30/21 11/30/21 18:59 06:59 18:59 Intake Total 120 620 518 Balance 120 620 518 Intake: Oral 120 620 518 Other: Voiding Method Toilet # Voids 1 2 1 # Bowel Movements 1 - Exam Patient is alert and awake. Speech and language functions are normal. Cranial nerves are normal. Muscle strength equal. - Labs CBC & Chem 7: 11/27/21 14:29 11/27/21 14:29 Assessment and Plan Assessment: * Recurrent (2) transient episodes of right arm weakness, one episode of transient slurred speech, and one transient episode of right arm numbness, each lasting for 5-10 minutes to 30 minutes max. Probable focal seizures. * Subdural hematoma, left temporal region, diagnosed 11/22/2021. * History of syncopal spells (x2) prior to the diagnosis of subdural hematoma, with loss of memory for the spells. Rule out partial seizures. * History of Cerebral meningioma, stable for the last 5 years. Plan: * Patient still had 1 more episode last night consisting of right arm paresthesia that lasted for 15-20 minutes. Patient will be continued on Keppra 750 mg twice a day. Usually takes 3 days for Keppra to kick in. * Patient underwent 2.5 hour EEG today. This is an abnormal 2.5 hour EEG. The frequent focal theta slowing mentioned over the left temporal greater than left frontal region is not epileptiform in nature. These findings indicate mild focal cerebral dysfunction involving the corresponding region. No seizures were recorded. No epileptiform activity was present. * MRI of the brain with and without contrast performed 11/28/2021 revealed left extra-axial fluid collection, no significant change in size compared to the CT performed 11/27/2021, likely key account representative of subdural hematoma. No midline shift or mass effect. There is a small component of subarachnoid hemorrhage in the left parietal region. Stable in size and appearance of the posterior dural based mass, most likely a meningioma. * Repeat computed tomography scan of head 11/28/2021 showed no change. No subarachnoid hemorrhage. * No antiplatelets or anticoagulants at this time. * Recommend SCDs for DVT prophylaxis. * 2-D echo with bubble study revealed normal left ventricular wall thickness and systolic function with EF greater than 55%. Left ventricular size is normal. Right ventricle is mild to moderately enlarged. Contrast study was performed with 2 IV injection of 8 mL of agitated normal saline at rest and post Valsalva, inconclusive bubble study. Mild aortic valve sclerosis. * CTA of head and neck showed no dissection, stenosis or aneurysm. * We will follow.
[2021-12-01 16:57] LABS: Folate, Serum 5.1 ng/mL (4.40-31.00)
[2021-12-01] MEDS: CALCIUM CARBONATE 500 MG CHEWABLE PO PRN (19:26)
--- NOTE | 2021-12-01 20:02 | P.PN ---
Subjective This is a pleasant 76-year-old patient who follows Dr. Sharma. Chronic stable medical conditions include fibromyalgia, GERD, hypertension, hyperlipidemia, hypothyroid, meningioma. Patient is accompanied by her . On November 22, patient presented to our ER with headache for 2 days. She had a throbbing headache behind her eyes 10 out of 10 in severity. She also some neck pain and intermittent dizziness. Computed tomography scan of the brain showed a: New small acute left sided extra-axial hemorrhage may have was some acute component. Involvement over the left frontal parietal lobe superiorly and left parietal lobe inferiorly. S uspect subdural. No midline shift. Patient was then transferred to [facility]. She did undergo a carotid Doppler and 2-D echo. She was discharged yesterday evening. No surgical intervention was done. While patient was hospitalized she still remained a bit unsteady in the legs. A nd had slight headache that persisted. Last night patient noticed that her right arm was floppy and then power came back . This morning patient is able to comb her hair brush her teeth and then later she noticed that her right arm again became weak. Some numbness in the same. Was not able to lift it above 90. She's also noticed some change in vision today. No change in speech or swallowing. Some headache is still present. ER physician Dr Ruff. called me.. I did ask him to speak to the on-call neurologist Dr. Mojica. November 28: Feels much better this morning. No weakness in the left leg. Right arm feels well. Some change in the vision persist. This morning discussed the care with Dr. Mojica from neurology. VINCENT was canceled per cardiology. Me and Dr. Mojica discussed and we'll review the need for the same after MRI is done. Also discussed Dr. Mojica, he'll be starting the patient on Keppra for seizures. Especially the first presentation there was some memory lapse when she did initially presented. Later this afternoon the speech therapist told me that while she was there patient is having some trouble with dexterity of the right arm especially cutting meat. Also speech became garbled. And then it became normal. Patient went down for MRI later today. November 29: Patient continues to have intermittent episodes of loss of speech, right arm weakness and decreased extremity. Some intermittent trouble with cognition. Care was discussed at length with Dr. Mojica from neurology. This could be a manifestation of seizures. Dose of Keppra being increased to 750 mg twice daily starting today. Prolonged EEG will be done tomorrow. Really does not wish to be offered from a surgical standpoint at this point at least. Dr. Mojica did reviewed the computed tomography scan from the [facility]. 11/30/2021 This is a pleasant 76 years old female who had recent bleeding into her brain and [facility], where she was evaluated by surgical team here with no surgical intervention she was management conservatively and discharged back to home, however she started getting numbness and spasm in her right upper extremity that comes and goes so she came back to the hospital. She is hemodynamically stable. She's been evaluated by neurologist will follow her closely. First EEG was negative. She had MRI of the brain on 11/28 showing a subdural hematoma and small left subarachnoid hemorrhage and posterior meningioma. Today patient had prolonged EEG for 3 hours, when she is back she was complaining of from some headache which is [id number]-[id number] states because lack of sleep. Patient would like to try [place]. No more weakness or numbness in the right upper extremity. No dizziness. No vision changes today. She is not on any anticoagulation like aspirin or heparin because of her bleeding into the brain. Patient continued on Keppra 750 mg twice daily as well as home dose of prednisone 40 mg The result of the new EEG is still pending 12/01/2021 Patient today she feels better. She states that she has only mild headache but no dizziness. And no symptoms in her right upper extremity for more than 24 hours plus today. Patient was asking when she is going to be discharged. I explained to the patient she is not ready yet and she agrees to stay. Also informed him with the results of EEG as below EEG showing abnormal to one half hours EEG. Frequent focal theater slowing mentioned over the left temporal greater than left frontal regions is not epileptiform in nature. No epileptiform activity was present. We will follow up with a neurologist regarding his further recommendation B12 and folate are within the reference range Objective - Vital Signs Vital signs: Vital Signs Temp 97.7 F 12/01/21 07:50 Pulse 71 12/01/21 07:50 Resp 16 12/01/21 07:50 BP 147/77 12/01/21 07:50 Pulse Ox 95 12/01/21 07:50 Intake & Output 11/30/21 12/01/21 12/01/21 18:59 06:59 18:59 Intake Total 518 1000 118 Balance 518 1000 118 Intake: Oral 518 1000 118 Other: Voiding Method Toilet # Voids 1 2 - Exam GENERAL: The patient is alert and oriented x3, not in any acute distress. Well developed, well nourished. HEENT: Pupils are round and equally reacting to light. EOMI. No scleral icterus. No conjunctival pallor. Normocephalic, atraumatic. No pharyngeal erythema. No thyromegaly. CARDIOVASCULAR: S1 and S2 present. No murmurs, rubs, or gallops. PULMONARY: Chest is clear to auscultation, no wheezing or crackles. ABDOMEN: Soft, nontender, nondistended, normoactive bowel sounds. No palpable organomegaly. MUSCULOSKELETAL: No joint swelling or deformity. EXTREMITIES: No cyanosis, clubbing, or pedal edema. NEUROLOGICAL: Gross neurological examination did not reveal any focal deficits. SKIN: No rashes. no petechiae. 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 Increase Keppra 750 mg twice a day. Prolonged EEG: Pending -Subacute subdural hematoma on the left side -Essential hypertension Amlodipine 10 mg a day, Prinivil 10 mg a day -Hyperlipidemia Increase Lipitor 20 mg daily at bedtime -Hypothyroid Levothyroxine 125 g a day -Primary osteoarthritis multiple joints bilateral Tylenol as needed -Chronic insomnia, idiopathic Melatonin -Chronic urinary stress incontinence DVT prophylaxis: Mechanical, no anticoagulation for her bleed into the brain GI prophylaxis: Protonix
--- NOTE | 2021-12-01 20:12 | P.PN ---
Subjective Progress Note Date: 12/01/21 This is a Tele-neurology followup performed today on 12/01/2021. Patient was seen for a follow-up. Patient has no more episodes in the last 24 hours. No new concerns. We also received medical records from outside hospital CT head without contrast from 11/23/2021 showed no significant interval change in size or appearance of the subdural hematoma collecting over the left parietal lobe and along the left side of the midline cerebral falx measuring up to 6 mm in thickness. No new bleeds identified. No midline shift or herniation. Patient had an 18 hour prolonged EEG on 11/23/2021 that was started at 1:47 PM, which was continued until 11/24/2021 at 8:35 AM. Video was recorded throughout the study. It is an abnormal EEG with findings indicative of a mild degree of encephalopathy as well as of a structural lesion in the region of the left temporal lobe. The additional presence of FIRDA has the following differential diagnosis, depending on the clinical context: As a pattern of encephalopathy nonspecific as to etiology, deep-seated midline lesions or intermittently raised intracranial pressure. Patient had a routine EEG on 11/24/2021 which was technically suboptimal. When discernible, mild encephalopathy is noted. Neurology saw the patient, and recommended no indication for antiepileptic medication. Patient's Covid-19 was positive in that admissions. Objective - Vital Signs Vital signs: Vital Signs Temp 97.7 F 12/01/21 07:50 Pulse 71 12/01/21 07:50 Resp 16 12/01/21 07:50 BP 147/77 12/01/21 07:50 Pulse Ox 95 12/01/21 07:50 Intake & Output 11/30/21 12/01/21 12/01/21 18:59 06:59 18:59 Intake Total 518 1000 118 Balance 518 1000 118 Intake: Oral 518 1000 118 Other: Voiding Method Toilet # Voids 1 2 - Exam Patient is alert and awake. Speech and language functions are normal. Detail examination deferred. - Labs CBC & Chem 7: 11/27/21 14:29 11/27/21 14:29 Assessment and Plan Assessment: * Recurrent (2) transient episodes of right arm weakness, one episode of transient slurred speech, and one transient episode of right arm numbness, each lasting for 5-10 minutes to 30 minutes max. Probable focal seizures. * Subdural hematoma, left temporal region, diagnosed 11/22/2021. * History of syncopal spells (x2) prior to the diagnosis of subdural hematoma, with loss of memory for the spells. Rule out partial seizures. * History of Cerebral meningioma, stable for the last 5 years. Plan: * Patient has not had any more focal symptoms in the last 24 hours. Patient will be continued on Keppra 750 mg twice a day. We will observe for another 24 hours. * We will repeat computed tomography scan of the head in the morning. If the subdural hematoma is stable/resolved, patient will be stable for discharge to home from neurology point. * We will also decrease prednisone to 30 mg daily for 1 day, then 20 mg for 1 day, then 10 mg for 1 day then stop. Previous workup: * Patient underwent 2.5 hour EEG today. This is an abnormal 2.5 hour EEG. The frequent focal theta slowing mentioned over the left temporal greater than left frontal region is not epileptiform in nature. These findings indicate mild focal cerebral dysfunction involving the corresponding region. No seizures were recorded. No epileptiform activity was present. 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 No midline shift or mass effect. There is a small component of subarachnoid hemorrhage in the left parietal region. Stable in size and appearance of the posterior dural based mass, most likely a meningioma. * Repeat computed tomography scan of head 11/28/2021 showed no change. No subarachnoid hemorrhage. * No antiplatelets or anticoagulants at this time. * Recommend SCDs for DVT prophylaxis. * 2-D echo with bubble study revealed normal left ventricular wall thickness and systolic function with EF greater than 55%. Left ventricular size is normal. Right ventricle is mild to moderately enlarged. Contrast study was performed with 2 IV injection of 8 mL of agitated normal saline at rest and post Valsalva, inconclusive bubble study. Mild aortic valve sclerosis. * CTA of head and neck showed no dissection, stenosis or aneurysm. .
[2021-12-01] MEDS: ATORVASTATIN 20 MG TAB PO SCH (20:40)
[2021-12-01] MEDS: lisinopriL 10 MG TAB PO SCH (20:40)
[2021-12-02] MEDS: LEVOTHYROXINE 125 MCG TAB PO SCH (06:18)
--- NOTE | 2021-12-02 07:38 | CT ---
EXAMINATION TYPE: CT brain wo con DATE OF EXAM: 12/02/2021 COMPARISON: 11/28/2021 HISTORY: Follow up [facility] CT DLP: 1036 mGycm Automated exposure control for dose reduction was used. FINDINGS: The small extra-axial fluid collection along the left inner convexity and temporal parietal region is again seen but appears slightly smaller than previous most likely represents a resolving subdural he morrhage. The ventricular system is not dilated and there is no mass effect or shift of midline structures. The re is mild calcification the basal ganglia which is stable. There is a 2.8 cm extra-axial mass arising from the falx in the right parietal region. It contains ca lcifications and most likely represents a meningioma. It is stable compared to previous. Fossa including the brainstem, fourth ventricle and cerebellar pontine angles appear grossly normal. The intraorbital contents appear normal and symmetric. Visualized paranasal sinuses and mastoid air cells are well aerated. IMPRESSION: 1. SMALL SLIGHTLY HYPERDENSE EXTRA-AXIAL FLUID COLLECTION ALONG THE LEFT INNER CONVEXITY OF THE TEMPO RAL PARIETAL REGION WHICH APPEARS SLIGHTLY SMALLER LESS DENSE COMPARED TO PREVIOUS. IS CONSISTENT WIT H A RESOLVING TINY SUBDURAL HEMORRHAGE. 2. STABLE EXTRA-AXIAL MASS IN THE HIGH RIGHT PARIETAL REGION WHICH MOST LIKELY REPRESENTS A MENINGIOM A. 3. NO OTHER NEW OR SIGNIFICANT ABNORMALITY SEEN.
[2021-12-02] MEDS: amLODIPine 10 MG TAB PO SCH (07:55)
[2021-12-02] MEDS: CHOLECALCIFEROL 25 MCG (1000 IU) TABLET PO SCH (07:56)
[2021-12-02] MEDS: ACETAMINOPHEN TAB 325 MG TAB PO PRN ×2 (07:56→14:25)
[2021-12-02 08:28] VITALS: RESP 16
[2021-12-02] MEDS ORDERED: predniSONE 20 MG TAB PO SCH (09:00)
--- NOTE | 2021-12-02 12:11 | P.PN ---
Progress Note - Text Progress Note Date: 12/02/21 Patient had a follow-up computed tomography scan of head performed today, which revealed small slightly hyperdense extra-axial fluid collection along the left inner convexity of the temporal parietal region which appears slightly smaller, less dense compared to previous is consistent with a resolving tiny subdural hemorrhage. Stable extra-axial mass in the high right parietal region which most likely represents a meningioma. Patient has not had any focal symptoms or focal seizures in the last 48 hours. I spoke to patient on the phone, discussed about the results. Yaa for discharge, on Keppra 750 mg twice a day. Prednisone 20 mg on Friday, prednisone 10 mg on Friday and then discontinue prednisone on Friday. We will have patient follow up with Dr. Christie in outpatient clinic. Jana will call with the patient with an appointment. Yaa for discharge.
[2021-12-02 14:20] VITALS: BP 126/74; PULSE 87; TEMP 97.6
--- NOTE | 2021-12-02 22:16 | P.DS ---
Providers Date of admission: 11/28/21 18:08 Attending physician: Gaurang Staley Consults: 11/27/21 17:38 Consult Physician Urgent Consulting Provider: Shaina Dailey Consult Reason/Comments: TIA, subdural Do you want consulting provider notified?: Yes 11/27/21 20:50 Consult Physician Routine Consulting Provider: Claudio Conley Consult Reason/Comments: VINCENT Do you want consulting provider notified?: Yes 11/28/21 14:34 Consult Physician Routine Consulting Provider: Narendra Bynum Consult Reason/Comments: possible IPR Do you want consulting provider notified?: Yes Primary care physician: Romel [facility] Hospital Course: Diagnoses: -Episodic numbness and spasm of the right upper extremity -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 -Subacute subdural hematoma on the left side -Essential hypertension -Hyperlipidemia -Hypothyroid -Primary osteoarthritis multiple joints bilateral -Chronic insomnia, idiopathic -Chronic urinary stress incontinence Hospital course: This is a pleasant 76-year-old patient who follows Dr. Sharma. Chronic stable medical conditions include fibromyalgia, GERD, hypertension, hyperlipidemia, hypothyroid, meningioma. Patient admitted with concern for episodic numbness and spasm of the right upper extremity. Patient of note recently was diagnosed with subdural hematoma and she was transferred to [facility] to be evaluated by neurosurgical team and she was treated conservatively and discharged home, Thereafter She Developed the Spasm and Numbness in Her Right Upper Extremities and She Came Back to the Hospital. MRI of the Brain on 11/28 Showed Left Subdural Hematoma Posterior Meningioma and Possible Small Left Subarachnoid Hemorrhage. Neurology Were Following the Case Closely and There Was Suspicion of a Seizure Therefore She Was Started on Keppra at 750 Mg Twice a Day. Patient Kept without Antiplatelet or Anticoagulation Because of Her Bleeding and She Was Monitored Closely She Had Several EEG and CAT Scan Including Today Prior to Discharge which revealed small slightly hyperdense extra-axial fluid collection along the left inner convexity of the temporal parietal region which appears slightly smaller, less dense compared to previous is consistent with a resolving tiny subdural hemorrhage. Stable extra-axial mass in the high right parietal region which most likely represents a meningioma. Patient monitors for more than 48 hours with no new findings, no new neurological deficit. She has some mild headache but this is chronic and sometimes when she stands up she got little dizziness which goes away or within seconds. We checked postural vitals and there were negative. Also I discussed the case with neurologist Dr. Mojica today over the phone who confirmed to me she is cleared for discharge with recommendation to stop her prednisone as taper, see discharge instructions. Patient herself confirmed known new symptoms and she was so eager to go home today. 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 Also no chest pain or dyspnea, no change in urine or bowel habits. No fever. Patient was cleared for discharge by neurology service Patient was placed on prednisone 40 mg for 2 weeks after she was discharged from [facility] for unknown reason I discussed the case with Dr. Mojica and both of us agree that she should be tapered decrease the chances of bleeding, we give her short taper starting at 30 mg every 3 days, patient informed and she agrees. Problems and management plan were discussed with the patient and he verbalized understanding and acceptance Patient was found stable and can be discharged home however he needs follow-up as an outpatient. Patient was instructed to follow up with PC Dr. Edith Pace within one week and patient agrees Patient was instructed to follow up with a neurologist in 1 week, she says she does not have neurologist and a few names are suggested for her like Dr. Figueredo, Dr. secobar and she agrees to call tomorrow and make appointment as today is a weekend Physical exam Gen: patient is a AAOx3, no distress CVS: S1-S2, RRR, no murmur Lungs: B/L CTA, no wheezing Abdomen: soft, no distention, no tenderness, positive bowel sounds Extremity: no leg edema or induration Time spent more than 35 minutes Plan - Discharge Summary Discharge Rx Participant: No New Discharge Prescriptions: New levETIRAcetam [Keppra] 750 mg PO Q12HR #60 tab Atorvastatin [Lipitor] 20 mg PO HS #30 tab predniSONE 10 mg PO DIRECTED #15 tab Continue Omeprazole Magnesium [PriLOSEC OTC] 20 mg PO DAILY PRN PRN Reason: ACID REFLUX HYDROcodone/APAP 5-325MG [[place] 5-325] 1 tab PO Q6HR PRN PRN Reason: Pain amLODIPine [Norvasc] 10 mg PO DAILY predniSONE [Deltasone] 40 mg PO DAILY Lisinopril [Prinivil] 10 mg PO DAILY Cholecalciferol [Vitamin D3 (25 Mcg = 1000 Iu)] 25 mcg PO DAILY Levothyroxine Sodium 125 mcg PO DAILY Calcium Carbonate [Calcium] 600 mg PO DAILY Discontinued Atorvastatin Calcium [Lipitor] 10 mg PO HS Ibuprofen [Motrin] 800 mg PO Q8H PRN PRN Reason: Pain Or Fever > 100.5 Discharge Medication List Omeprazole Magnesium [PriLOSEC OTC] 20 mg PO DAILY PRN 11/22/21 [History] amLODIPine [Norvasc] 10 mg PO DAILY 11/22/21 [History] Calcium Carbonate [Calcium] 600 mg PO DAILY 11/27/21 [History] Cholecalciferol [Vitamin D3 (25 Mcg = 1000 Iu)] 25 mcg PO DAILY 11/27/21 [History] HYDROcodone/APAP 5-325MG [[place] 5-325] 1 tab PO Q6HR PRN 11/27/21 [History] Levothyroxine Sodium 125 mcg PO DAILY 11/27/21 [History] Lisinopril [Prinivil] 10 mg PO DAILY 11/27/21 [History] predniSONE [Deltasone] 40 mg PO DAILY 11/27/21 [History] Atorvastatin [Lipitor] 20 mg PO HS #30 tab 12/01/21 [Rx] levETIRAcetam [Keppra] 750 mg PO Q12HR #60 tab 12/01/21 [Rx] predniSONE 10 mg PO DIRECTED #15 tab 12/02/21 [Rx] Follow up Appointment(s)/Referral(s): Rosy Escobar MD [REFERRING] - 1 Week (neurologist ) Romel Sharma DO [Primary Care Provider] - 1-2 days Ladarius Figueredo MD [Medical Doctor] - 1 Week (neurologist ) Damian Alcocer MD [STAFF PHYSICIAN] - 1 Week [facility] Vis[facility] Nurse, [NON-STAFF] - 1-2 Days Patient Instructions/Handouts: Seizure/Epilepsy Discharge Instructions & Follow-Up, Levetiracetam (By mouth) Activity/Diet/Wound Care/Special Instructions: Heart healthy diet Activity is restricted till you see your doctor Discharge Disposition: HOME SELF-CARE
== END 2021-12-02 14:50 | disposition home health service (06) | DRG 69 ==
LOC: EC 12:22 → 6NMEDSUR 17:53 → OBSVTOIN 11-28 18:08 → 6NMEDSUR 12-01 14:04
PROVIDERS: ADMIT Hospitalist; ATTEND Hospitalist
DX: G45.9 Transient cerebral ischemic attack, unspecified (principal); S06.6X9A Traumatic subarachnoid hemorrhage with loss of consciousness of unspecified duration, initial encounter; S06.5X9A Traumatic subdural hemorrhage with loss of consciousness of unspecified duration, initial encounter; G93.40 Encephalopathy, unspecified; G40.909 Epilepsy, unspecified, not intractable, without status epilepticus; D32.0 Benign neoplasm of cerebral meninges; Z20.822 Contact with and (suspected) exposure to COVID-19; M79.7 Fibromyalgia; K21.9 Gastro-esophageal reflux disease without esophagitis; E78.5 Hyperlipidemia, unspecified; I10 Essential (primary) hypertension; E89.0 Postprocedural hypothyroidism; I35.8 Other nonrheumatic aortic valve disorders; M54.2 Cervicalgia; R47.81 Slurred speech; H57.12 Ocular pain, left eye; R26.9 Unspecified abnormalities of gait and mobility; M15.9 Polyosteoarthritis, unspecified; N39.3 Stress incontinence (female) (male); F51.04 Psychophysiologic insomnia; Z79.890 Hormone replacement therapy; Z79.899 Other long term (current) drug therapy; Z86.16 Personal history of COVID-19; Z86.011 Personal history of benign neoplasm of the brain; Z87.19 Personal history of other diseases of the digestive system; Z87.39 Personal history of other diseases of the musculoskeletal system and connective tissue; Z98.49 Cataract extraction status, unspecified eye; Z87.01 Personal history of pneumonia (recurrent); Z98.890 Other specified postprocedural states; Z80.9 Family history of malignant neoplasm, unspecified
CPT/HCPCS: 36415; 70450; 70496; 70498; 70553; 80053; 80061; 82607; 82746; 84484; 85025; 85610; 85730; 87635; 93005; 93306; 95713; 95816; 99285

== ENCOUNTER → 2021-12-28 | Outpatient (CLI) | payer BC, MEDICARE ==
--- NOTE | 2021-12-29 00:58 | MR ---
EXAMINATION TYPE: MR brain wo/w con DATE OF EXAM: 12/28/2021 COMPARISON: 11/28/2021 HISTORY: Follow-up comparison benign neoplasm of cerebral meninges. CONTRAST: Standard multiplanar, multisequence MRI departmental protocol images were obtained without contrast a nd with 7.5 mL intravenous Gadavist gadolinium contrast. The ventricles have fairly normal size. There is mild cerebral atrophy. Diffusion images show no evid ence of an acute infarct. There is rounded 3 cm extra-axial mass at the right posterior parietal conv exity adjacent to the cerebral falx and consistent with a meningioma. There is no midline shift. Ther e is no sign of intracranial hemorrhage. Right parietal mass shows uniform enhancement. There is no e vidence of any brain edema adjacent to the mass. There is normal enhancement of the venous sinuses. Corpus callosum appears normal. Brainstem is intact. Sella turcica appears normal. There is no eviden ce of orbital mass. IMPRESSION: Large right posterior parietal convexity meningioma which measures 3.1 cm in maximum dimension and pr evious exam measures 2.9 cm. Allowing for error measurement there is not a significant change. No adj acent brain edema.
== END | disposition home or self-care (01) ==
LOC: RADMRIMAIN 21:23
DX: D32.0 Benign neoplasm of cerebral meninges (principal)
CPT/HCPCS: 70553; A9585

== ENCOUNTER → 2022-08-19 | Outpatient (CLI) | payer BC, MEDICARE ==
--- NOTE | 2022-08-20 10:00 | MM ---
Reason for Exam: Screening (asymptomatic). Last screening mammogram was performed 12 month(s) ago. Patient History: Menarche at age 14. First Full-Term at age 31. Late child-bearing (after 31). Perimenopausal. Other cancer, age 66. Estrogen for 6 months from age 51 until age 51. Progesterone for 6 months from age 51 until age 51. Core Biopsy on the Right side. Excisional Biopsy on the Left side. Excisional Biopsy on the Left side. Excisional Biopsy on the Left side. 10/12/2019, High risk Core Biopsy on the left side. 08/23/2019, High risk Core Biopsy on the left side. 08/18/2003, Benign Stereotactic Core Biopsy on the right side. Sister had breast cancer, age 63. Risk Values: Bri 5 year model risk: 5.3%. NCI Lifetime model risk: 11.2%. Prior Study Comparison: 05/16/2020 Left Diagnostic Mammogram, [facility]. 08/14/2020 Bilateral Diagnostic Mammogram, [facility]. 08/16/2021 Bilateral Diagnostic Mammogram, [facility]. Tissue Density: There are scattered fibroglandular densities. Findings: Analyzed By CAD. There is no suspicious group of microcalcifications or new suspicious mass in either breast. Overall Assessment: Benign, BI-RAD 2 Management: Screening Mammogram of both breasts in 1 year. A clinical breast exam by your physician is recommended on an annual basis and results should be correlated with mammographic findings. Electronically signed and approved by: Montana Casey M.D. Radiologis
== END | disposition home or self-care (01) ==
LOC: RADMAMWWP 11:15
PROVIDERS: ATTEND Surgery
DX: Z12.31 Encounter for screening mammogram for malignant neoplasm of breast (principal)
CPT/HCPCS: 77063; 77067

== ENCOUNTER → 2022-08-22 | Outpatient (CLI) | payer BC, MEDICARE ==
[2022-08-22 12:42] VITALS: BP 146/82; PULSE 67; RESP 16; TEMP 98.1
--- NOTE | 2022-08-22 13:11 | P.PN ---
Subjective Progress Note Date: 08/22/22 Principal diagnosis: fibroystic breast changes Fibrocystic breast changes Ani is a 76 year old white female status post multiple left breast biopsies the most recent being on 10-12-19. 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 She had a bilateral mammogram performed on which was BIRAD 2. This was personally reviewed. Patient is not complaining of any lumps masses or nodules in either breast. Bri risk : 5 year 5.3% discussed chemoprevention and patient declined Family History: sister: breast cancer at 71 patient: Meningioma being followed she did not have surgery Hormonal History: menarche: 14 , 2 stillborn, breast fed: none, age at first : 31 menopause: 51 BCP: 1 year hormones: none Past Surgical History: 1. thyroid 2. tonsil 3. breast biopsy 4. shoulder arthoscopic surgery 5. knee arthroscopic Medical History: 1. fibromyalgia 2. arthtritis 3. back pain 4. Meningioma which is stable/following this for 5 years, follows every 1 year Social History: smoke: none alcohol: occasional drugs: none - Constitutional Constitutional: Denies chills, Denies fever - EENT Comment: glaucoma, cataract Eyes: denies blurred vision, denies pain Ears: bilateral: tinnitus, deny: decreased hearing Ears, nose, mouth and throat: Reports headache, Reports hoarseness - Breasts Breasts: bilateral: as per HPI - Cardiovascular Cardiovascular: Reports chest pain - Respiratory Comment: seasonal asthma - Gastrointestinal Comment: reflux IBS Gastrointestinal: Reports diarrhea - Genitourinary (Female) Genitourinary: Denies dysuria, Denies hematuria - Menstruation Menstruation: Reports postmenopausal - Musculoskeletal Comment: fibromyalgia hip pain back pain Musculoskeletal: Reports myalgias - Integumentary Comment: psoriasis Integumentary: Denies pruritus, Denies rash - Neurological Comment: meniagoma Neurological: Reports weakness - Psychiatric Psychiatric: Denies anxiety, Denies depression - Endocrine Comment: thyroid cancer Endocrine: Reports fatigue - Hematologic/Lymphatic Comment: none - Allergic/Immunologic Allergic/Immunologic: Reports seasonal allergies Objective - Vital Signs Vital signs: Vital Signs Temp 98.1 F 08/22/22 12:39 Pulse 67 08/22/22 12:39 Resp 16 08/22/22 12:39 BP 146/82 08/22/22 12:39 Pulse Ox 97 08/22/22 12:39 FiO2 Intake & Output 08/21/22 08/22/22 08/22/22 18:59 06:59 18:59 Weight 83.915 kg - Exam BMI: 29 - Constitutional General appearance: Present: cooperative - EENT Eyes: Present: EOMI ENT: Present: hearing grossly normal - Neck Neck: Present: normal ROM - Respiratory Respiratory: bilateral: CTA - Cardiovascular Rhythm: regular Heart sounds: normal: S1, S2 - Gastrointestinal General gastrointestinal: Present: soft - Integumentary Integumentary: Present: normal turgor - Musculoskeletal Musculoskeletal: Present: gait normal - Psychiatric Psychiatric: Present: A&O x's 3, appropriate affect, intact judgment & insight - Additional findings Additional findings: Breast Exam: BRA: sports large inspection: Grade 2/3 ptosis bilaterally Palpation: Right breast: Multi-positional exam fibrocystic changes no dominant masses or nodules of concern Right axilla: No adenopathy of concern Left breast: Well-healed scars fibrocystic changes no dominant masses or nodules of concern Left axilla: No adenopathy of concern Assessment and Plan Assessment: Impression: fibrocystic breast changes Plan: bilateral mammogram in 1 year with appointment CC: Dr. Sharma
== END ==
LOC: WWCWWP 12:27
PROVIDERS: ATTEND Surgery
DX: N60.11 Diffuse cystic mastopathy of right breast (principal); N60.12 Diffuse cystic mastopathy of left breast; Z80.8 Family history of malignant neoplasm of other organs or systems

== ENCOUNTER 2022-11-06 10:08 | Day surgery (SDC) | payer BC, MEDICARE ==
[2022-11-04 11:02] VITALS: BMI 28.0
[~2022-11-06 10:08] MED LIST changes: -ALPRAZolam 0.25 MG TAB PO PRN; -DEXAMETHASONE SOD PHOSPHATE 10 MG/ML 1 ML VIAL IV ONE; -HEPARIN SODIUM,PORCINE 5,000 UNIT/ML 1 ML VIAL SQ ONE; -HYDROmorphone 0.5 MG/0.5 ML SYRINGE IVP PRN; +LIDOCAINE 1% (10MG/ML) FOR IV START INTRADERMA PRN; -LIDOCAINE 1% 20 ML VIAL (10MG/ML) FOR IV START INTRADERMA PRN; -ONDANSETRON 4 MG/2 ML VIAL IVP ONE; +ONDANSETRON 4 MG/2 ML VIAL IVP PRN; -Pre Op ABX Message 1 EACH MISC MISCELLANE ONE; +SODIUM CHLORIDE 0.9% 500 ML BAG ONE
[2022-11-06] MEDS ORDERED: LACTATED RINGERS 1,000 ML IV ONE (10:45)
[2022-11-06 10:59] VITALS: RESP 16; TEMP 97.6
[2022-11-06] MEDS ORDERED: PROPOFOL 10 MG/ML 20 ML VIAL IV ONE (12:07)
--- NOTE | 2022-11-06 12:22 | P.PCN ---
Date of Procedure: 11/06/22 Procedure(s) Performed: BRIEF HISTORY: Patient is a 77-year-old pleasant female scheduled for an elective colonoscopy as a part of screening for colon cancer. Her last colonoscopy was 10 years ago. PROCEDURE PERFORMED: Colonoscopy. PREOPERATIVE DIAGNOSIS: Screening for colon cancer. IV sedation per Anesthesia. PROCEDURE: After informed consent was obtained, the patient, was brought into the endoscopy unit. IV sedation was administered by Anesthesia under continuous monitoring. Digital rectal examination was normal. Initially the Olympus CF-160 flexible video colonoscope was then inserted in the rectum, gradually advanced into the cecum without any difficulty. Careful examination was performed as the scope was gradually being withdrawn. Ileocecal valve and the appendiceal orifice were visualized and appeared normal. Prep was excellent. Mucosa of the cecum, ascending colon, transverse colon, descending colon, sigmoid colon, and rectum appeared normal. Scattered sigmoidal diverticulosis. Retroflexion was performed in the rectum and no lesions were seen. The patient tolerated the pro cedure well. IMPRESSION: Normal-appearing colon from rectum to cecum no evidence of colorectal neoplasia Scattered sigmoidal diverticulosis. RECOMMENDATIONS: Findings of this examination were discussed with the patient as well as a family. She was advised to be a high-fiber diet and take fiber supplements a regular basis..
[2022-11-06] MEDS ORDERED: SODIUM CHLORIDE 0.9% 500 ML IV ONE (12:23)
[2022-11-06 12:53] VITALS: BP 135/64; PULSE 81
== END 2022-11-06 13:17 | disposition home or self-care (01) ==
LOC: ORWHC2ENDO 10:08
PROVIDERS: ATTEND Internal Medicine Gastroenterology
DX: Z12.11 Encounter for screening for malignant neoplasm of colon (principal); K57.30 Diverticulosis of large intestine without perforation or abscess without bleeding; I10 Essential (primary) hypertension; E78.5 Hyperlipidemia, unspecified; J45.909 Unspecified asthma, uncomplicated; E07.9 Disorder of thyroid, unspecified; Z79.890 Hormone replacement therapy; Z79.51 Long term (current) use of inhaled steroids; Z86.73 Personal history of transient ischemic attack (TIA), and cerebral infarction without residual deficits; M79.7 Fibromyalgia; K21.9 Gastro-esophageal reflux disease without esophagitis; Z79.02 Long term (current) use of antithrombotics/antiplatelets; Z79.01 Long term (current) use of anticoagulants; Z79.899 Other long term (current) drug therapy; Z79.2 Long term (current) use of antibiotics
CPT/HCPCS: 45378; J2704

== ENCOUNTER 2022-11-15 17:36 | Emergency (ER) | payer BC, MEDICARE ==
[2022-11-15] MEDS ORDERED: SODIUM CHLORIDE 0.9% 1,000 ML IV STA (18:18)
--- NOTE | 2022-11-15 18:31 | ED ---
General Adult HPI - General Chief complaint: Headache Stated complaint: Headaches,Prev Brain Bleed Time Seen by Provider: 11/15/22 17:59 Source: patient Mode of arrival: ambulatory Limitations: no limitations - History of Present Illness Initial comments: Dictation was produced using [employer] dictation software. please excuse any grammatical, word or spelling errors. Chief Complaint: 77-year-old male presents emergency Department with 2 days of headache. History of Present Illness: 77-year-old female she has past medical history of intracranial bleed. Presents to the emergency room for headache. States that it's in her left temporal region. She does complain of some vision changes in the left eye. 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 Patient last year had a computed tomography scan that showed intracranial bleed she was transferred to [facility] where she states she was observed discharge. Denies any numbness and paresthesias to the arms or legs. Patient is a history of meningioma. The ROS documented in this emergency department record has been reviewed and confirmed by me. Those systems with pertinent positive or negative responses have been documented in the HPI. All other systems are other negative and/or noncontributory. PHYSICAL EXAM: General Impression: Alert and oriented x3, not in acute distress HEENT: Normocephalic atraumatic, extra-ocular movements intact, pupils equal and reactive to light bilaterally, mucous membranes moist. Cardiovascular: Heart regular rate and rhythm Chest: Able to complete full sentences, no retractions, no tachypnea Abdomen: abdomen soft, non-tender, non-distended, no organomegaly Musculoskeletal: Pulses present and equal in all extremities, no peripheral edema Motor: no focal deficits noted Neurological: CN II-XII grossly intact, no focal motor or sensory deficits noted Skin: Intact with no visualized rashes Psych: Normal affect and mood ED course: 77-year-old well-appearing female presents emergency department for acute headache. Vital signs upon arrival are within acceptable limits. Neurologically intact Nursing notes and chart review was performed Computed tomography scan of the brain is unremarkable. patient has a stable meningioma.. Laboratory evaluation is unremarkable. Inflammatory markers are negative. Patient given headache cocktail. I patient reevaluated at 8:30 PM found to be stable medical condition patient reports improvement of her symptoms. 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 Was pt. sent in by a medical professional or institution (EMILIO Castillo, [employer], urgent care, hospital, or alf...) When possible be specific @ -No Did you speak to anyone other than the patient for history (EMS, parent, family, police, friend...)? What history was obtained from this source @ - at the bedside Did you review nursing and triage notes (agree or disagree)? Why? @ -I reviewed and agree with nursing and triage notes Were old charts reviewed (outside hosp., previous admission, EMS record, old EKG, old radiological studies, urgent care reports/EKG's, alf records)? Report findings @ -ALLERGY reports were reviewed showing that patient has history of meningioma. Differential Diagnosis (chest pain, altered mental status, abdominal pain women, abdominal pain men, vaginal bleeding, weakness, fever, dyspnea, syncope, headache, dizziness, GI bleed, back pain, seizure, CVA, palpatations, mental health)? @ -Differential Headache: Migraine, tension, cluster, carbon monoxide, central venous thrombosis, pension karma temporal arteritis, acute closure glaucoma, intercranial hemorrhage, mastoiditis, sinusitis, head injury, this is not meant to be an all-inclusive list. EKG interpreted by me (3pts min.). @ -None done X-rays interpreted by me (1pt min.). @ -None done CT interpreted by me (1pt min.). @ -As above U/S interpreted by me (1pt. min.). @ -None done What testing was considered but not performed or refused? (CT, X-rays, U/S, labs)? Why? @ -None What meds were considered but not given or refused? Why? @ -None Did you discuss the management of the patient with other professionals (professionals i.e. EMILIO Castillo, [employer]ERIFF, lab, RT, psych nurse, social security assessor, manufacturing area manager, teacher, commanding officer traffic division, case packer)? Give summary @ -No Was smoking cessation discussed for >3mins.? @ -No Was critical care preformed (if so, how long)? @ -No Were there social determinants of health that impacted care today? How? (Homelessness, low income, unemployed, alcoholism, drug addiction, transportation, low edu. Level, literacy, decrease access to med. care, [place] [facility], rehab)? @ -No Was there de-escalation of care discussed even if they declined (Discuss DNR or withdrawal of care, Hospice)? DNR status @ -No What co-morbidities impacted this encounter? (DM, HTN, Smoking, COPD, CAD, Can cer, CVA, ARF, Chemo, Hep., AIDS, mental health diagnosis, sleep apnea, morbid obesity)? @ -Meningioma Was patient admitted / discharged? Hospital course, mention meds given and route, prescriptions, significant lab abnormalities, going to OR and other pertinent info. @ -See above Undiagnosed new problem with uncertain prognosis? @ -No Drug Therapy requiring intensive monitoring for toxicity (Heparin, Nitro, Insulin, Cardizem)? @ -No Were any procedures done? @ -No Diagnosis/symptom? @ -Acute Headache Acute, or Chronic, or Acute on Chronic? @ -default Uncomplicated (without systemic symptoms) or Complicated (systemic symptoms)? @ -default Side effects of treatment? @ -No Exacerbation, Progression, or Severe Exacerbation? @ -No Poses a threat to life or bodily function? How? (Chest pain, [place], [place], pneumonia, PE, COPD, DKA, ARF, appy, cholecystitis, CVA, Diverticulitis, Homicidal, Suicidal, threat to staff... and all critical care pts) @ -No - Related Data Home Medications Medication Instructions Recorded Confirmed Omeprazole Magnesium [PriLOSEC OTC] 20 mg PO DAILY 11/22/21 11/06/22 amLODIPine [Norvasc] 10 mg PO DAILY 11/22/21 11/06/22 Calcium Carbonate [Calcium] 600 mg PO DAILY 11/27/21 11/06/22 Cholecalciferol [Vitamin D3 (25 25 mcg PO DAILY 11/27/21 11/06/22 Mcg = 1000 Iu)] Levothyroxine Sodium 125 mcg PO DAILY 11/27/21 11/06/22 Losartan [Cozaar] 50 mg PO DAILY 11/04/22 11/06/22 Previous Rx's Medication Instructions Recorded Atorvastatin [Lipitor] 20 mg PO HS #30 tab 12/01/21 Allergies Allergy/AdvReac Type Severity Reaction Status Date / Time No Known Allergies Allergy Verified 11/15/22 17:50 Review of Systems ROS Statement: Those systems with pertinent positive or pertinent negative responses have been documented in the HPI. ROS Other: All systems not noted in ROS Statement are negative. Past Medical History Past Medical History: Cancer, Fibromyalgia, GERD/Reflux, Hyperlipidemia, Hypertension, Osteoarthritis (OA), Thyroid Disorder Additional Past Medical History / Comment(s): HAS MENINGIOMA being watched, brain bleed in Nov 2021 resolved on its own, basal cell skin Ca History of Any Multi-Drug Resistant Organisms: None Reported Past Surgical History: Breast Surgery, Orthopedic Surgery Additional Past Surgical History / Comment(s): thyroidectomy; left breast biopsy benign; right breast biopsy x2 benign; COLONOSCOPY; LT SHOULDER SX; BILAT KNEE SX; bx and basal cell skin lft shouler,. skin basal cell areas on leg still to be done. Past Anesthesia/Blood Transfusion Reactions: No Reported Reaction Past Psychological History: No Psychological Hx Reported Smoking Status: Never smoker Past Alcohol Use History: Rare Past Drug Use History: None Reported - Past Family History Sister(s) Family Medical History: Cancer General Exam Limitations: no limitations Course Vital Signs 11/15/22 11/15/22 11/15/22 17:48 18:17 19:00 Temperature 98.8 F Pulse Rate 76 71 72 Respiratory 18 20 20 Rate Blood Pressure 159/74 137/74 140/75 O2 Sat by Pulse 99 95 95 Oximetry Medical Decision Making - Lab Data Result diagrams: 11/15/22 18:38 11/15/22 18:38 Lab Results 11/15/22 11/15/22 Range/Units 18:38 18:38 WBC 5.4 (3.8-10.6) k/uL RBC 4.38 (3.80-5.40) m/uL Hgb 12.9 (11.4-16.0) gm/dL Hct 38.2 (34.0-46.0) % MCV 87.3 (80.0-100.0) fL MCH 29.5 (25.0-35.0) pg MCHC 33.8 (31.0-37.0) g/dL RDW 12.0 (11.5-15.5) % Plt Count 282 (150-450) k/uL MPV 6.9 Neutrophils % 57 % Lymphocytes % 32 % Monocytes % 6 % Eosinophils % 3 % Basophils % 1 % Neutrophils # 3.1 (1.3-7.7) k/uL Lymphocytes # 1.7 (1.0-4.8) k/uL Monocytes # 0.3 (0-1.0) k/uL Eosinophils # 0.1 (0-0.7) k/uL Basophils # 0.0 (0-0.2) k/uL ESR 13 (0-20) mm/hr Sodium 140 (137-145) mmol/L Potassium 4.0 (3.5-5.1) mmol/L Chloride 104 (98-107) mmol/L Carbon Dioxide 28 (22-30) mmol/L Anion Gap 8 mmol/L BUN 12 (7-17) mg/dL Creatinine 0.53 (0.52-1.04) mg/dL Est GFR (CKD-EPI)AfAm >90 (>60 ml/min/1.73 sqM) Est GFR (CKD-EPI)NonAf >90 (>60 ml/min/1.73 sqM) Glucose 76 (74-99) mg/dL Calcium 8.0 L (8.4-10.2) mg/dL C-Reactive Protein <0.5 (<1.0) mg/dL Disposition Clinical Impression: Headache Disposition: HOME SELF-CARE Condition: Good Instructions (If sedation given, give patient instructions): Acute Headache (ED) Is patient prescribed a controlled substance at d/c from ED?: No Referrals: Romel Sharma DO [Primary Care Provider] - 1-2 days Time of Disposition: 20:30
--- NOTE | 2022-11-15 19:02 | CT ---
EXAMINATION TYPE: CT brain wo con DATE OF EXAM: 11/15/2022 COMPARISON: 12/02/2021 HISTORY: Headache. CT DLP: 1161.4 mGycm Automated exposure control for dose reduction was used. Images obtained of the brain without contrast. There is a partially calcified 3 cm sharply marginated rounded mass at the right parietal convexity n ear the cerebral falx and consistent with a hemangioma. No adjacent edema. Ventricles have normal size. No mass effect or midline shift. No sign of intracranial hemorrhage. The skull base is intact. There is normal aeration of the mastoid sinuses. Sella turcica is normal. IMPRESSION: There is right parietal meningioma without change. No acute intracranial abnormality.
[2022-11-15] MEDS ORDERED: ONDANSETRON 4 MG/2 ML VIAL IVP STA (19:07)
[2022-11-15] MEDS ORDERED: KETOROLAC 15 MG/ML 1 ML VIAL IVP STA (19:07)
[2022-11-15] MEDS ORDERED: diphenhydrAMINE 50 MG/ML 1 ML VIAL IVP STA (19:07)
[2022-11-15 19:37] LABS: Basophils % (A) 1 %; Eosinophils # (A) 0.1 k/uL (0-0.7); Eosinophils % (A) 3 %; HCT 38.2 % (34.0-46.0); HGB 12.9 gm/dL (11.4-16.0); Lymphocytes # (A) 1.7 k/uL (1.0-4.8); Lymphocytes % (A) 32 %; MCH 29.5 pg (25.0-35.0); MCHC 33.8 g/dL (31.0-37.0); MCV 87.3 fL (80.0-100.0); Mean Platelet Volume 6.9; Monocytes # (A) 0.3 k/uL (0-1.0); Monocytes % (A) 6 %; Neutrophils # (A) 3.1 k/uL (1.3-7.7); Neutrophils % (A) 57 %; Platelet Count 282 k/uL (150-450); RBC 4.38 m/uL (3.80-5.40); WBC 5.4 k/uL (3.8-10.6)
[2022-11-15 20:07] LABS: African American GFR (CKD) >90 (>60 ml/min/1.73 sqM); Anion Gap 8 mmol/L; Blood Urea Nitrogen 12 mg/dL (7-17); C Reactive Protein <0.5 mg/dL (<1.0); Carbon Dioxide 28 mmol/L (22-30); Chloride 104 mmol/L (98-107); Glucose 76 mg/dL (74-99); Non-African American GFR(CKD) >90 (>60 ml/min/1.73 sqM); Sodium 140 mmol/L (137-145)
[2022-11-15 20:20] LABS: Erythrocyte Sedimentation Rate 13 mm/hr (0-20)
[2022-11-15] MEDS ORDERED: ACET/COD 300 MG/30 MG STARTER PACK 6 TAB BTL PO STA (20:39)
[2022-11-15 20:47] VITALS: BP 137/72; PULSE 76; RESP 18; TEMP 98.2
== END 2022-11-15 20:47 | disposition home or self-care (01) ==
LOC: EC 17:36
DX: S09.90XA Unspecified injury of head, initial encounter (principal); D32.0 Benign neoplasm of cerebral meninges; K21.9 Gastro-esophageal reflux disease without esophagitis; I10 Essential (primary) hypertension; M19.90 Unspecified osteoarthritis, unspecified site; E07.9 Disorder of thyroid, unspecified; Z79.890 Hormone replacement therapy; Z79.1 Long term (current) use of non-steroidal anti-inflammatories (NSAID); Z79.899 Other long term (current) drug therapy; X58.XXXA Exposure to other specified factors, initial encounter
CPT/HCPCS: 36415; 80048; 85652; 85025; 86140; 70450; 99285; 96374; 96375 ×2; 96361; J1200; J2405; J1885

== ENCOUNTER → 2023-01-29 | Outpatient (CLI) | payer BC, MEDICARE ==
[2023-01-29 14:58] LABS: African American GFR (CKD) >90 (>60 ml/min/1.73 sqM); Blood Urea Nitrogen 17 mg/dL (7-17); Non-African American GFR(CKD) 88 (>60 ml/min/1.73 sqM)
--- NOTE | 2023-01-29 16:18 | CT ---
EXAMINATION TYPE: CT adrenal glands wo/w con CT DLP: 1901 mGycm, Automated exposure control for dose reduction was used. DATE OF EXAM: 01/29/2023 4:00 PM COMPARISON: None CLINICAL INDICATION:Female, 77 years old with history of R19.09 OTHER INTRA-ABDOMINAL AND PELVIC SWEL LING,; adrenal nodule TECHNIQUE: Axial CT of the abdomen and pelvis. Sagittal and coronal reformats were created on a [employer] workstation. Contrast used:100 mL of Isovue 370 with IV Contrast, Oral contrast used: None. FINDINGS: LOWER CHEST: Unremarkable ABDOMEN LIVER: Unremarkable GALLBLADDER AND BILE DUCTS: Unremarkable. PANCREAS: Unremarkable. SPLEEN: Unremarkable. ADRENAL GLANDS: Left 12 mm adrenal nodule measuring -4 Hounsfield units compatible with benign lipid rich adrenal adenoma. Another more lateral adrenal nodule measuring 13 mm and 3 Hounsfield units is a lso present. No right adrenal nodule. KIDNEYS AND URETERS: Nonobstructive left renal calculus measuring 3 mm. PELVIS BLADDER: Unremarkable REPRODUCTIVE: Unremarkable. ABDOMEN & PELVIS STOMACH AND BOWEL: No evidence of bowel obstruction. Small hiatal hernia. Scattered colonic diverticu la. PERITONEUM/RETROPERITONEUM: No evidence of pneumoperitoneum or free fluid. VASCULATURE: No evidence of aortic aneurysm. MUSCULOSKELETAL: No acute osseous abnormalities LYMPH NODES: No gross evidence for lymphadenopathy. SOFT TISSUE/ABDOMINAL WALL: Unremarkable IMPRESSION: 1. Left adrenal nodules compatible with lipid rich adrenal adenomas. No suspicious adrenal nodules. 2. Bilateral renal cysts. 3. Left nonobstructing renal calculus. 4. Colonic diverticulosis. 5. Small hiatal hernia.
== END | disposition home or self-care (01) ==
LOC: RADCTMAIN 13:57
PROVIDERS: ATTEND Family Medicine
DX: N20.0 Calculus of kidney (principal); N28.1 Cyst of kidney, acquired; K57.30 Diverticulosis of large intestine without perforation or abscess without bleeding; K44.9 Diaphragmatic hernia without obstruction or gangrene; E27.8 Other specified disorders of adrenal gland; R19.09 Other intra-abdominal and pelvic swelling, mass and lump
CPT/HCPCS: 82565; 84520; 36415; 74170; Q9967

== ENCOUNTER → 2023-09-23 | Outpatient (CLI) | payer MEDICARE, BC ==
--- NOTE | 2023-09-25 | MM ---
Reason for Exam: Screening (asymptomatic). Last mammogram was performed 1 year(s) and 1 month(s) ago. Patient History: Menarche at age 14. First Full-Term at age 31. Late child-bearing (after 31). Perimenopausal. Other cancer, age 66. Estrogen for 6 months from age 51 until age 51. Progesterone for 6 months from age 51 until age 51. Core Biopsy on the Right side. Excisional Biopsy on the Left side. Excisional Biopsy on the Left side. Excisional Biopsy on the Left side. 10/12/2019, High risk Core Biopsy on the left side. 08/23/2019, High risk Core Biopsy on the left side. 08/18/2003, Benign Stereotactic Core Biopsy on the right side. Sister had breast cancer, age 63. Risk Values: Bri 5 year model risk: 5.3%. NCI Lifetime model risk: 10.5%. Prior Study Comparison: 08/14/2020 Bilateral Diagnostic Mammogram, [facility]. 08/16/2021 Bilateral Diagnostic Mammogram, [facility]. 08/19/2022 Bilateral MG 3D screening mammo w/cad, [facility]. Tissue Density: There are scattered fibroglandular densities. Findings: Analyzed By CAD. Postsurgical change redemonstrated on the left. There is a microclip in the right breast from prior biopsy. Unchanged areas of bilateral asymmetric densities. There is no suspicious group of microcalcifications or new suspicious mass in either breast. Overall Assessment: Benign, BI-RAD 2 Management: Screening Mammogram of both breasts in 1 year. See note below in regards to patient's increased 5 year Bri score. Patient should continue monthly self-breast exams. A clinical breast exam by your physician is recommended on an annual basis. This exam should not preclude additional follow-up of suspicious palpable abnormalities. Note on Bri scores and lifetime risk: 1. A Bri score greater than 3% is considered moderate risk. If this is the case, consider specialist referral to assess eligibility for a risk reducing agent. 2. If overall lifetime risk for the development of breast cancer is 20% or higher, the patient may qualify for future screening with alternating mammogram and breast MRI. Electronically signed and approved by: Marito Patterson M.D. Radiologist
== END | disposition home or self-care (01) ==
LOC: RADMAMWWP 14:41
PROVIDERS: ATTEND Surgery
DX: Z12.31 Encounter for screening mammogram for malignant neoplasm of breast (principal); Z80.3 Family history of malignant neoplasm of breast
CPT/HCPCS: 77063; 77067

== ENCOUNTER → 2023-10-03 | Outpatient (CLI) | payer BC, MEDICARE ==
[2023-10-03 09:54] VITALS: BP 130/80; PULSE 73; RESP 17; TEMP 97.8
--- NOTE | 2023-10-03 10:11 | P.PN ---
Subjective Progress Note Date: 10/03/23 Principal diagnosis: fibrocystic breast changes Fibrocystic breast changes Ani is a 76 year old white female status post multiple left breast biopsies the most recent being on 10-12-19. 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 She had a bilateral mammogram performed on 09-23-23 which was BIRAD 2. This was personally reviewed. Patient is not complaining of any lumps masses or nodules in either breast. Bri risk : 5 year 5.3% discussed chemoprevention and patient declined Family History: sister: breast cancer at 71 patient: Meningioma being followed she did not have surgery Hormonal History: menarche: 14 , 2 stillborn, breast fed: none, age at first : 31 menopause: 51 BCP: 1 year hormones: none Past Surgical History: 1. thyroid 2. tonsil 3. breast biopsy 4. shoulder arthoscopic surgery 5. knee arthroscopic Medical History: 1. fibromyalgia 2. arthtritis 3. back pain 4. Meningioma which is stable/following this for 5 years, follows every 1 year Social History: smoke: none alcohol: occasional drugs: none - Constitutional Constitutional: Denies chills, Denies fever - EENT Comment: glaucoma, cataract Eyes: denies blurred vision, denies pain Ears: bilateral: tinnitus, deny: decreased hearing Ears, nose, mouth and throat: Reports headache, Reports hoarseness - Breasts Breasts: bilateral: as per HPI - Cardiovascular Cardiovascular: Reports chest pain - Respiratory Comment: seasonal asthma - Gastrointestinal Comment: reflux IBS Gastrointestinal: Reports diarrhea - Genitourinary (Female) Genitourinary: Denies dysuria, Denies hematuria - Menstruation Menstruation: Reports postmenopausal - Musculoskeletal Comment: fibromyalgia hip pain back pain Musculoskeletal: Reports myalgias - Integumentary Comment: psoriasis Integumentary: Denies pruritus, Denies rash - Neurological Comment: meniagoma Neurological: Reports weakness - Psychiatric Psychiatric: Denies anxiety, Denies depression - Endocrine Comment: thyroid cancer Endocrine: Reports fatigue - Hematologic/Lymphatic Comment: none - Allergic/Immunologic Allergic/Immunologic: Reports seasonal allergies Objective - Vital Signs Vital signs: Vital Signs Temp 97.8 F 10/03/23 09:46 Pulse 73 10/03/23 09:46 Resp 17 10/03/23 09:46 BP 130/80 10/03/23 09:46 Pulse Ox 98 10/03/23 09:46 FiO2 Intake & Output 10/02/23 10/03/23 10/03/23 18:59 06:59 18:59 Weight 80.286 kg - Constitutional General appearance: Present: cooperative - EENT Eyes: Present: EOMI - Neck Neck: Present: normal ROM - Respiratory Respiratory: bilateral: CTA - Cardiovascular Heart sounds: normal: S1, S2 - Integumentary Integumentary: Present: normal turgor - Psychiatric Psychiatric: Present: A&O x's 3, appropriate affect, intact judgment & insight - Additional findings Additional findings: Breast Exam: BRA: sports large inspection: Grade 2/3 ptosis bilaterally Palpation: Right breast: Multi-positional exam fibrocystic changes no dominant masses or nodules of concern Right axilla: No adenopathy of concern Left breast: Well-healed scars fibrocystic changes no dominant masses or nodules of concern Left axilla: No adenopathy of concern Assessment and Plan Assessment: Impression: fibrocystic breast changes Plan: bilateral mammogram in 1 year with appointment CC: Dr. Sharma
== END ==
LOC: WWCWWP 09:31
PROVIDERS: ATTEND Surgery
DX: Z12.31 Encounter for screening mammogram for malignant neoplasm of breast (principal)

== ENCOUNTER → 2023-10-04 | Outpatient (CLI) | payer BC, MEDICARE ==
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
== END | disposition home or self-care (01) ==
LOC: RADMRIMAIN 10:17
PROVIDERS: ATTEND Neurological Surgery
DX: M99.71 Connective tissue and disc stenosis of intervertebral foramina of cervical region (principal); M47.22 Other spondylosis with radiculopathy, cervical region; M50.222 Other cervical disc displacement at C5-C6 level; M50.223 Other cervical disc displacement at C6-C7 level
CPT/HCPCS: 72141

== ENCOUNTER → 2024-07-23 | Outpatient (CLI) | payer BC, MEDICARE ==
[2024-07-23 11:22] LABS: African American GFR (CKD) >90 (>60 ml/min/1.73 sqM); Blood Urea Nitrogen 13 mg/dL (7-17); Non-African American GFR(CKD) 88 (>60 ml/min/1.73 sqM)
--- NOTE | 2024-07-23 13:00 | CT ---
EXAMINATION TYPE: CT abdomen pelvis w con DATE OF EXAM: 07/23/2024 COMPARISON: 01/29/2023 HISTORY: 78-year-old female R1 9.00 abdominal and pelvic swelling/mass TECHNIQUE: Contiguous axial scanning of the abdomen and pelvis following administration of 100 ml Iso jasmyne 300 IV contrast. Delayed images through the kidneys and coronal/sagittal reconstructions perform ed. CT DLP: 841.20 mGycm Automated exposure control for dose reduction was used. FINDINGS: The heart is borderline enlarged. Hazy and interstitial changes at the lung bases appear sl ightly increased and may in part relate to atelectasis. There is a small hiatal hernia. Liver, gallbladder, right adrenal gland, spleen with tiny anterior hilar splenules, and pancreas show no gross abnormal evaluate. Right kidney shows a 6 mm nonobstructive stone. 5 mm stone upper pole left kidney. Numerous bilateral parapelvic cysts are present, largest measuring up tor 3.1 cm. Numerous smaller cortical cysts are p resent measuring up to 1.1 cm on both sides. Largest measures 9.8 cm at the left lower pole versus 9. 4 cm, previously. Correlate for any symptoms associated from mass effect. A heterogeneous 1.2 cm cortical lesion medial upper pole kidney is unchanged from 01/29/2023 favoring a benign etiology such as an AML. Recommend annual surveillance follow-up. 2 areas of nodularity in the left adrenal gland measuring up to 1.5 cm remain unchanged from 3. No dilated small bowel, free fluid, or free air. No mesenteric or retroperitoneal lymphadenopathy. Normal appendix. Oral contrast progressed to the distal third transverse colon. There is the appearan ce of circumferential wall thickening along the transverse colon, for example, axial images 32 and 35 which may be due to nondistention. There is sigmoid diverticulosis but no pericolonic inflammatory c hange seen along this region. Bladder partially distended. Pelvic floor relaxation. Uterus is anteverted. Small bilateral ovaries. No abnormal fluid collection in the pelvis or pelvic lymphadenopathy. Bones: Moderate degenerative change in both hips. Advanced hypertrophic facet arthropathy mid to lowe r lumbar spine with degenerative grade 1 anterolisthesis L3-L4 and L4-L5. Moderate to severe neurofor aminal stenosis right greater than left at L5-S1. IMPRESSION: 1. NUMEROUS BILATERAL RENAL CYSTS INCLUDING PARAPELVIC CYSTS MEASURING UP TO 3.1 CM. LARGEST CORTICAL CYST MEASURES 9.8 CM FROM THE LOWER POLE THE LEFT KIDNEY, NOT SIGNIFICANT CHANGED FROM LAST YEAR. CO RRELATE FOR ANY SYMPTOMS ASSOCIATED WITH MASS EFFECT FROM THE LARGE CYST. 2. A COUPLE NONOBSTRUCTIVE RENAL CALCULI MEASURING UP TO 6 MM. 3. AN INDETERMINATE CORTICAL LESION UPPER POLE LEFT KIDNEY MEASURES 1.2 CM AND REMAINS UNCHANGED. POS SIBLE SMALL AML. ANNUAL SURVEILLANCE FOLLOW-UP RECOMMENDED. 4. THE APPEARANCE OF CIRCUMFERENTIAL WALL THICKENING ALONG THE TRANSVERSE COLON POSSIBLY DUE TO NONDI STENTION. CORRELATE FOR ANY SYMPTOMS OF A NONSPECIFIC MILD INFECTIOUS OR INFLAMMATORY COLITIS. 5. PELVIC FLOOR RELAXATION. 6. Left adrenal gland nodularity measuring up to 1.5 cm remains unchanged, suggesting benign adrenal adenomas. [facility], , 07/23/2024 12:58 PM
== END | disposition home or self-care (01) ==
LOC: RADCTMAIN 10:35
PROVIDERS: ATTEND Family Medicine
DX: R19.00 Intra-abdominal and pelvic swelling, mass and lump, unspecified site
CPT/HCPCS: 36415; 74177; 82565; 84520

== ENCOUNTER → 2024-09-27 | Outpatient (CLI) | payer BC, MEDICARE ==
--- NOTE | 2024-09-28 19:01 | MM ---
Reason for Exam: Screening (asymptomatic). Last screening mammogram was performed 12 month(s) ago. Patient History: Menarche at age 14. First Full-Term at age 31. Late child-bearing (after 31). Perimenopausal. Patient has history of breast feeding. Other cancer, age 66. Estrogen for 6 months from age 51 until age 50. Progesterone for 6 months from age 51 until age 50. Core Biopsy on the Right side. Excisional Biopsy on the Left side. Excisional Biopsy on the Left side. Excisional Biopsy on the Left side. 10/12/2019, High risk Core Biopsy on the left side. 08/23/2019, High risk Core Biopsy on the left side. 08/18/2003, Benign Stereotactic Core Biopsy on the right side. Sister had breast cancer, age 63. Risk Values: Bri 5 year model risk: 5.3%. NCI Lifetime model risk: 9.9%. Prior Study Comparison: 05/31/2016 Bilateral Screening Mammogram, [facility]. 01/06/2018 Bilateral Diagnostic Mammogram, [facility]. 08/04/2019 Bilateral Diagnostic Mammogram, [facility]. 08/04/2019 Left Diagnostic Ultrasound, [facility]. 08/23/2019 Left Diagnostic Mammogram, [facility]. 05/16/2020 Left Diagnostic Mammogram, [facility]. 05/19/2020 Left Diagnostic Ultrasound, [facility]. 08/14/2020 Bilateral Diagnostic Mammogram, [facility]. 08/16/2021 Bilateral Diagnostic Mammogram, [facility]. 08/19/2022 Bilateral MG 3D screening mammo w/cad, [facility]. 09/23/2023 Bilateral MG 3D screening mammo w/cad, [facility]. Tissue Density: There are scattered areas of fibroglandular density. Findings: Analyzed By CAD. Redemonstrated post surgical changes left breast. Microclip right breast from prior biopsy. There is no suspicious group of microcalcifications or new suspicious mass in either breast. Overall Assessment: Benign, BI-RAD 2 Management: Screening Mammogram of both breasts in 1 year. See note below in regards to patient's increased 5 year Bri score. Patient should continue monthly self-breast exams. A clinical breast exam by your physician is recommended on an annual basis. This exam should not preclude additional follow-up of suspicious palpable abnormalities. Note on Bri scores and lifetime risk: 1. A Bri score greater than 3% is considered moderate risk. If this is the case, consider specialist referral to assess eligibility for a risk reducing agent. 2. If overall lifetime risk for the development of breast cancer is 20% or higher, the patient may qualify for future screening with alternating mammogram and breast MRI. [facility], , 09/28/2024 6:58 PM. Electronically signed and approved by: Marito Patterson M.D. Radiologist
== END | disposition home or self-care (01) ==
LOC: RADMAMWWP 09:48
PROVIDERS: ATTEND Surgery
DX: Z12.31 Encounter for screening mammogram for malignant neoplasm of breast (principal); Z80.3 Family history of malignant neoplasm of breast; R92.323 Mammographic fibroglandular density, bilateral breasts
CPT/HCPCS: 77063; 77067

== ENCOUNTER → 2024-10-08 | Outpatient (CLI) | payer BC, MEDICARE ==
[2024-10-08 11:16] VITALS: BP 137/78; PULSE 64; RESP 17; TEMP 98.2
--- NOTE | 2024-10-08 11:30 | P.PN ---
Subjective Progress Note Date: 10/08/24 Principal diagnosis: fibrocystic breast disease 10-08-24 Principal diagnosis: fibrocystic breast changes Ani is a 77 year old white female status post multiple left breast biopsies the most recent being on 10-12-19. 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 She had a bilateral mammogram performed on 09-27-24 which was BIRAD 2. This was personally reviewed. Patient is not complaining of any lumps masses or nodules in either breast. Patient has had a 30 pound weight loss, she CT done showed cyst left kidney She saw Dr. Ruiz and this is being followed She is following with Dr. Sharma regarding weight loss Bri risk : 5 year 5.3% discussed chemoprevention and patient declined Family History: sister: breast cancer at 71 patient: Meningioma being followed she did not have surgery Hormonal History: menarche: 14 , 2 stillborn, breast fed: none, age at first : 31 menopause: 51 BCP: 1 year hormones: none Past Surgical History: 1. thyroid 2. tonsil 3. breast biopsy 4. shoulder arthoscopic surgery 5. knee arthroscopic Medical History: 1. fibromyalgia 2. arthtritis 3. back pain 4. Meningioma which is stable/following this for 5 years, follows every 1 year Social History: smoke: none alcohol: occasional drugs: none - Constitutional Constitutional: Denies chills, Denies fever - EENT Comment: glaucoma, cataract Eyes: denies blurred vision, denies pain Ears: bilateral: tinnitus, deny: decreased hearing Ears, nose, mouth and throat: Reports headache, Reports hoarseness - Breasts Breasts: bilateral: as per HPI - Cardiovascular Cardiovascular: Reports chest pain - Respiratory Comment: seasonal asthma - Gastrointestinal Comment: reflux IBS Gastrointestinal: Reports diarrhea - Genitourinary (Female) Genitourinary: Denies dysuria, Denies hematuria - Menstruation Menstruation: Reports postmenopausal - Musculoskeletal Comment: fibromyalgia hip pain back pain Musculoskeletal: Reports myalgias - Integumentary Comment: psoriasis Integumentary: Denies pruritus, Denies rash - Neurological Comment: meniagoma Neurological: Reports weakness - Psychiatric Psychiatric: Denies anxiety, Denies depression - Endocrine Comment: thyroid cancer Endocrine: Reports fatigue - Hematologic/Lymphatic Comment: none - Allergic/Immunologic: Objective - Vital Signs Vital signs: Vital Signs Temp 98.2 F 10/08/24 11:14 Pulse 64 10/08/24 11:14 Resp 17 10/08/24 11:14 BP 137/78 10/08/24 11:14 Pulse Ox 97 10/08/24 11:14 FiO2 Intake & Output 10/07/24 10/08/24 10/08/24 18:59 06:59 18:59 Weight 74.843 kg - Constitutional General appearance: Present: cooperative - EENT Eyes: Present: EOMI ENT: Present: hearing grossly normal - Neck Neck: Present: normal ROM - Respiratory Respiratory: bilateral: CTA - Cardiovascular Rhythm: regular Heart sounds: normal: S1, S2 - Integumentary Integumentary: Present: normal turgor - Musculoskeletal Musculoskeletal: Present: gait normal - Psychiatric Psychiatric: Present: A&O x's 3, appropriate affect, intact judgment & insight - Additional findings Additional findings: Breast Exam: BRA: sports large inspection: Grade 2/3 ptosis bilaterally Palpation: Right breast: Multi-positional exam fibrocystic changes no dominant masses or nodules of concern Right axilla: No adenopathy of concern Left breast: Well-healed scars fibrocystic changes no dominant masses or nodules of concern Left axilla: No adenopathy of concern Assessment and Plan Assessment: Impression: fibrocystic breast changes Plan: bilateral mammogram in 1 year September 2025 with appointment follow with Dr Sharma CC: Dr. Sharma
== END ==
LOC: WWCWWP 11:01
PROVIDERS: ATTEND Surgery
DX: N60.12 Diffuse cystic mastopathy of left breast (principal); N60.11 Diffuse cystic mastopathy of right breast; R92.8 Other abnormal and inconclusive findings on diagnostic imaging of breast; Z80.3 Family history of malignant neoplasm of breast

== ENCOUNTER 2025-05-23 17:26 | Emergency (ER) | payer BC, MEDICARE ==
[2025-05-23 17:47] VITALS: RESP 18
--- NOTE | 2025-05-23 18:08 | ED ---
Fall HPI - General Chief Complaint: Fall Stated Complaint: Head injury Time Seen by Provider: 05/23/25 18:07 Source: patient, RN notes reviewed, old records reviewed Mode of arrival: ambulatory Limitations: no limitations - History of Present Illness Initial Comments: This is a 79 female to the ER for evaluation patient presents today for multiple complaints headache with head injury neck pain right knee pain back pain. Patient has history of recent history of a fall yesterday fall was mechanical in nature she did hit her head on the desk and did catch herself with her wrist and right knee. 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 Witnessed: yes, by family Place Fall Occurred: home Loss of Consciousness: none Prolonged Down Time?: no Symptoms Prior to Fall: none Location: head, neck, back Location - Extremities: Right: Knee Severity: moderate Context: tripped/slipped Associated Symptoms: denies - Related Data Home Medications Medication Instructions Recorded Confirmed Omeprazole Magnesium [PriLOSEC OTC] 20 mg PO DAILY 11/22/21 05/23/25 Losartan [Cozaar] 50 mg PO HS 11/04/22 05/23/25 Levothyroxine Sodium [Synthroid] 112 mcg PO DAILY 05/23/25 05/23/25 Lifitegrast [Xiidra] 1 drop BOTH EYES HS 05/23/25 05/23/25 Propylene Glycol/Peg 400/Pf 1 drop BOTH EYES QID PRN 05/23/25 05/23/25 [Systane 0.3-0.4% Ophth Dropperette] amLODIPine [Norvasc] 5 mg PO DAILY 05/23/25 05/23/25 Previous Rx's Medication Instructions Recorded Atorvastatin [Lipitor] 20 mg PO HS #30 tab 12/01/21 Allergies Allergy/AdvReac Type Severity Reaction Status Date / Time No Known Allergies Allergy Verified 05/23/25 18:12 Review of Systems ROS Statement: Those systems with pertinent positive or pertinent negative responses have been documented in the HPI. ROS Other: All systems not noted in ROS Statement are negative. Past Medical History Past Medical History: Cancer, Fibromyalgia, GERD/Reflux, Hyperlipidemia, Hypertension, Osteoarthritis (OA), Thyroid Disorder Additional Past Medical History / Comment(s): HAS MENINGIOMA being watched, brain bleed in Nov 2021 resolved on its own, basal cell skin Ca History of Any Multi-Drug Resistant Organisms: None Reported Past Surgical History: Breast Surgery, Orthopedic Surgery Additional Past Surgical History / Comment(s): thyroidectomy; left breast biopsy benign; right breast biopsy x2 benign; COLONOSCOPY; LT SHOULDER SX; BILAT KNEE SX; bx and basal cell skin lft shouler,. skin basal cell areas on leg still to be done. Past Anesthesia/Blood Transfusion Reactions: No Reported Reaction Past Psychological History: No Psychological Hx Reported Smoking Status: Never smoker Past Alcohol Use History: Rare Past Drug Use History: None Reported - Past Family History Sister(s) Family Medical History: Cancer General Exam Limitations: no limitations General appearance: alert, in no apparent distress Head exam: Present: atraumatic, normocephalic, normal inspection Eye exam: Present: normal appearance, PERRL, EOMI. Absent: scleral icterus, conjunctival injection, periorbital swelling ENT exam: Present: normal exam, mucous membranes moist Neck exam: Present: normal inspection. Absent: tenderness, meningismus, lymphadenopathy Respiratory exam: Present: normal lung sounds bilaterally. Absent: respiratory distress, wheezes, rales, rhonchi, stridor Cardiovascular Exam: Present: regular rate, normal rhythm, normal heart sounds. Absent: systolic murmur, diastolic murmur, rubs, gallop, clicks GI/Abdominal exam: Present: soft, normal bowel sounds. Absent: distended, tenderness, guarding, rebound, rigid Extremities exam: Present: normal inspection, full ROM, normal capillary refill. Absent: tenderness, pedal edema, joint swelling, calf tenderness Back exam: Present: normal inspection Neurological exam: Present: alert, oriented X3, CN II-XII intact Psychiatric exam: Present: normal affect, normal mood Skin exam: Present: warm, dry, intact, normal color. Absent: rash Course Vital Signs 05/23/25 17:44 Temperature 98.2 F Pulse Rate 82 Respiratory 18 Rate Blood Pressure 130/85 O2 Sat by Pulse 96 Oximetry - Reevaluation(s) Reevaluation #1: 05/23/25 19:14 Medical records reviewed Reevaluation #2: 05/23/25 19:14 Patient has no significant change in symptoms but not requiring pain medication Reevaluation #3: 05/23/25 19:15 Patient informed of results questions answered Reevaluation #4: Was pt. sent in by a medical professional or institution (, PA, CERTIFIED ORTHOTIST PRACTICE MANAGER, urgent care, hospital, or intermediate...) When possible be specific @ -no Did you speak to anyone other than the patient for history (EMS, parent, family, police, friend...)? What history was obtained from this source @ -no Did you review nursing and triage notes (agree or disagree)? Why? @ -agree Are old charts reviewed (outside hosp., previous admission, EMS record, old EKG, old radiological studies, urgent care reports/EKG's, intermediate records)? Report findings @ -yes Differential Diagnosis (chest pain, altered mental status, abdominal pain women, abdominal pain men, vaginal bleeding, weakness, fever, dyspnea, syncope, headache, dizziness, GI bleed, back pain, seizure, CVA, palpatations, mental health, musculoskeletal)? @ -prior EKG interpreted by me (3pts min.). @ -yes X-rays interpreted by me (1pt min.). @ -yes negative for acute disease CT interpreted by me (1pt min.). @ -no U/S interpreted by me (1pt. min.). @ -no What testing was considered but not performed or refused? (CT, X-rays, U/S, labs)? Why? @ -none What meds were considered but not given or refused? Why? @ -none Did you discuss the management of the patient with other professionals (professionals i.e. , EMILIO, CERTIFIED ORTHOTIST PRACTICE MANAGER, lab, RT, psych nurse, psych social worker, transfer knitter, teacher, special officer automat, leather case finisher)? Give summary @ -no Was smoking cessation discussed for >3mins.? @ -no Was critical care preformed (if so, how long)? @ -no Were there social determinants of health that impacted care today? How? (Homelessness, low income, unemployed, alcoholism, drug addiction, transportation, low edu. Level, literacy, decrease access to med. care, shelter, rehab)? @ -none Was there de-escalation of care discussed even if they declined (Discuss DNR or withdrawal of care, Hospice)? DNR status @ -no What co-morbidities impacted this encounter? (DM, HTN, Smoking, COPD, CAD, Cancer, CVA, ARF, Chemo, Hep., AIDS, mental health diagnosis, sleep apnea, morbid obesity)? @ -none Was patient admitted / discharged? Hospital course, mention meds given and route, prescriptions, significant lab abnormalities, going to OR and other pertinent info. @ - Undiagnosed new problem with uncertain prognosis? @ -no Drug Therapy requiring intensive monitoring for toxicity (Heparin, Nitro, Insulin, Cardizem)? @ -no Were any procedures done? @ -no Diagnosis/symptom? @ - Acute, or Chronic, or Acute on Chronic? @ -Acute Uncomplicated (without systemic symptoms) or Complicated (systemic symptoms)? @ -Complicated Side effects of treatment? @ -no Exacerbation, Progression, or Severe Exacerbation? @ -exacerbation Poses a threat to life or bodily function? How? (Chest pain, USA, SD, pneumonia, PE, COPD, DKA, ARF, appy, cholecystitis, CVA, Diverticulitis, Homicidal, Suicidal, threat to staff... and all critical care pts) @ -yes Medical Decision Making - Medical Decision Making 79 female for mechanical trip and fall positive head injury, no acute and traumatic intracranial hemorrhage no traumatic injury from fall, x-rays including right knee are negative, patient can be discharged home not requiring pain medication - Radiology Data Radiology results: report reviewed (CT brain C-spine facial bones x-ray back right knee negative for acute traumatic injury), image reviewed Disposition Clinical Impression: Fall, Head injury, Contusion of right knee Disposition: HOME SELF-CARE Condition: Fair Instructions (If sedation given, give patient instructions): Fall Prevention for Older Adults (ED), Knee Pain (ED), Head Injury (ED) Is patient prescribed a controlled substance at d/c from ED?: No Referrals: Romel Sharma DO [Primary Care Provider] - 1-2 days Time of Disposition: 19:10
--- NOTE | 2025-05-23 18:40 | CT ---
EXAMINATION TYPE: CT brain cspine wo con, CT facial bones wo con CT DLP: combined 981.3 mGycm, Automated exposure control for dose reduction was used. DATE OF EXAM: 05/23/2025 6:27 PM COMPARISON: Multiple CT brain with most recent 11/15/2022, multiple MRI brain with most recent 3 CLINICAL INDICATION:Female, 79 years old with history of pain; pt c/o fall with facial injury, hx of brain bleed, tumor TECHNIQUE: Brain: Multiple axial CT images of the brain were obtained without IV contrast. Cspine: Axial CT images from the skull base to the inferior aspect of T2 we obtained without intraven ous contrast. Coronal and sagittal reformatted images were also reviewed. Facial bones; axial CT images of the facial bones were obtained without contrast and soft tissue and bone windows. Coronal and sagittal reformatted images were also reviewed. FINDINGS: Brain: Extra-axial spaces: No abnormal extra-axial fluid collections. Stable extra-axial partially calcified right parietal convexity lesion measuring up to 2.9 cm. Consistent with a meningioma. Ventricular system: Within normal limits Cerebral parenchyma: Cerebral atrophy. No acute intraparenchymal hemorrhage or mass effect. The kate -white junction is well differentiated. Scattered hypoattenuating areas are seen within the periventr icular white matter. Nonspecific right basal ganglia calcifications. Cerebellum: Unremarkable. Mass effect: No evidence of midline shift. Intracranial vasculature: Atherosclerotic calcifications of the intracranial vessels. Soft tissues: Normal. Calvarium: No depressed skull fracture. Paranasal sinuses and mastoid air cells: Clear. Visualized orbits: Bilateral aphakia Cervical spine: Fracture: None. Osseous structures: Unremarkable Vertebral alignment: Within normal limits. Spinal canal/Neural Foramina: No evidence of significant spinal canal narrowing. No evidence for sign ificant neural foraminal stenosis. Neck soft tissues: Prevertebral soft tissues are within normal limits. Other: The airway is patent. The lung apices are clear. Thyroid gland appears to be surgically absent . Facial Bones: Dental amalgam creates streak artifact which limits evaluation. There is no evidence of fracture, subluxation, dislocation, or significant soft tissue swelling. The orbital contents are unremarkable. Bilateral aphakia. The temporal-mandibular joints appear symmetric . The visualized portion of the paranasal sinuses appear clear. IMPRESSION: 1. No acute intracranial process. 2. Nonspecific white matter changes, likely secondary to chronic small vessel ischemic disease. 3. Stable right high parietal extra-axial partially calcified lesion consistent with known meningiom a. 4. No acute facial bone fracture. 5. No evidence of cervical spine fracture. [facility], , 05/23/2025 6:37 PM
--- NOTE | 2025-05-23 19:05 | XR ---
EXAMINATION TYPE: XR chest 1V DATE OF EXAM: 05/23/2025 7:00 PM COMPARISON: None TECHNIQUE: XR chest 1V Frontal view of the chest. CLINICAL INDICATION:Female, 79 years old with history of fall; pain FINDINGS: Lungs/Pleura: There is no evidence of pleural effusion, focal consolidation, or pneumothorax. Pulmonary vascularity: Unremarkable. Heart/mediastinum: Cardiomediastinal silhouette is unremarkable. Atherosclerotic calcifications are seen in the aorta. Musculoskeletal: No acute osseous pathology. IMPRESSION: No acute cardiopulmonary disease/process. [facility], , 05/23/2025 7:02 PM
--- NOTE | 2025-05-23 19:06 | XR ---
EXAMINATION TYPE: XR knee complete RT DATE OF EXAM: 05/23/2025 7:00 PM INDICATION: Patient age:Female; 79 years old; Reason for study: fall; [facility]. pain COMPARISON: None. TECHNIQUE: The Right knee(s) was examined in Frontal, lateral and oblique projections. FINDINGS: No acute fracture or dislocation. There is joint space narrowing of the medial tibiofemor al joint with marginal osteophytosis. No joint effusion. Prominent varicosities within the medial asp ect of the right lower extremity soft tissues. No soft tissue swelling. IMPRESSION: 1. No acute osseous pathology. 2. Moderate osteoarthritic changes of the medial tibiofemoral joint space. [facility], , 05/23/2025 7:04 PM
--- NOTE | 2025-05-23 19:07 | XR ---
EXAMINATION TYPE: XR pelvis AP view DATE OF EXAM: 05/23/2025 7:00 PM INDICATION: Patient age:Female; 79 years old; Reason for study: fall; PHH. pain COMPARISON: Sacrum/coccyx radiograph 11/22/2015 TECHNIQUE: The pelvis was examined in a single projection. FINDINGS: There is no evidence of fracture or dislocation. There is no soft tissue abnormality. No a bnormal calcifications are present. Multilevel degenerative changes of the lower spine. Degenerative changes of the pubic symphysis. Both SI joints appear intact. IMPRESSION: No acute osseous pathology. [facility], , 05/23/2025 7:05 PM
--- NOTE | 2025-05-23 19:09 | XR ---
EXAMINATION TYPE: XR lumbar spine 2 or 3V DATE OF EXAM: 05/23/2025 CLINICAL HISTORY: pain, fall TECHNIQUE: Three views of the lumbar spine are submitted. COMPARISON: None. FINDINGS: Diffuse bone demineralization which limits evaluation. There are 5 lumbar type vertebral bodies ident ified. No acute fracture. Grade 1 anterolisthesis of L3 on L4 and L4 and L5. No pars defects. Multile shayna disc space narrowing with endplate sclerosis. Most prominent at L4-L5. Multilevel facet arthropat hy of the lower lumbar spine. Vertebral body heights are within normal limits. The overlying soft ti ssue appears unremarkable. IMPRESSION: No acute fracture or dislocation is seen in the lumbar spine. [facility], , 05/23/2025 7:06 PM
[2025-05-23 19:46] VITALS: BP 158/81; PULSE 68; TEMP 97.8
== END 2025-05-23 19:46 | disposition home or self-care (01) ==
LOC: EC 17:26
DX: S80.01XA Contusion of right knee, initial encounter (principal); S09.90XA Unspecified injury of head, initial encounter; W18.30XA Fall on same level, unspecified, initial encounter
CPT/HCPCS: 70450; 70486; 71045; 72100; 72125; 72170; 99284